=== PATIENT | male | born 1940 | race Caucasian/White ===

== ENCOUNTER 2019-09-13 10:58 | Emergency (ER) | payer MEDICARE, BC ==
[2019-09-13] MEDS ORDERED: Sodium Chloride 0.9% 500 ML IV ONE (11:11)
--- NOTE | 2019-09-13 11:17 | EDM.PDOC ---
ED HPI GENERAL MEDICAL PROBLEM - General Chief Complaint: Gastrointestinal Problem Stated Complaint: Diarrhea Time Seen by Provider: 09/13/19 11:05 Source of Information: Reports: Patient, Family History Limitations: Reports: No Limitations - History of Present Illness INITIAL COMMENTS - FREE TEXT/NARRATIVE: Per the patient and the states he has been having ongoing bouts of diarrhea 3-4 a day that are watery and brown over the last 3 weeks or so. He has been seen by his primary care provider and has been worked up with lab work x-rays all have been negative. He has been taking chemotherapy medication for prostate cancer for the last 2 years 4 pills a day. He has not had any prior issues with this he actually stopped taking them a week ago but it is not change the diarrhea. He denies any sick contacts or change of diet. Last night at approximately 2 AM while getting out of bed to go to the bathroom he got lightheaded and felt like he passed out in the way his 's arms that lasted just a few seconds she was able to get him set down and he was fine after that. He denies any other complaints at this time states he drinks maybe 4 to 5 glasses of fluid/water/Gatorade a day and has been eating okay but not a lot. They have not taken anything for the diarrhea. Duration: Week(s): Quality: Reports: Other (There is no pain whatsoever) Associated Symptoms: Reports: No Other Symptoms - Related Data Allergies Allergy/AdvReac Type Severity Reaction Status Date / Time lisinopril Allergy Cough Verified 09/13/19 11:52 Home Meds: Home Meds Albuterol [Proventil HFA] 2 puff INH Q4H PRN 09/13/19 [History] Amoxicillin 2,000 mg PO ASDIRECTED 09/13/19 [History] Calcium Carbonate/Vitamin D3 [Calcium 600 + Vit D Tablet] 1 tab PO DAILY [History] Denosumab [Xgeva] 120 mg SUBCUT Q28D 09/13/19 [History] Donepezil HCl [Aricept] 10 mg PO BEDTIME 09/13/19 [History] Enzalutamide [Xtandi] 160 mg PO DAILY 09/13/19 [History] Finasteride 5 mg PO DAILY 09/13/19 [History] Fluticasone Propionate [Flonase] 1 spray NASBOTH DAILY 09/13/19 [History] Fluticasone/Vilanterol [Breo Ellipta 100-25 MCG Inhalation Kit] 1 puff PO DAILY 09/13/19 [History] Ipratropium [place] 2 sprays NASBOTH TID 09/13/19 [History] Leuprolide [Lupron Depot] 30 mg IM Q120D 09/13/19 [History] Lisinopril [Zestril] 2.5 mg PO DAILY 09/13/19 [History] Memantine HCl 10 mg PO BID 09/13/19 [History] Metoprolol Succinate [Toprol Xl] 50 mg PO DAILY 09/13/19 [History] Multivit-Min/FA/Lycopen/Lutein [Centrum Silver Tablet] 1 tab PO DAILY 09/13/19 [ History] [place]-3/DHA/Epa/Fish Oil [[place]-3 Fish Oil 1,200 MG Sfgl] 1,200 mg PO DAILY [History] Sertraline [Zoloft] 50 mg PO DAILY 09/13/19 [History] Tamsulosin HCl [Flomax] 0.8 mg PO DAILY 09/13/19 [History] Warfarin [Coumadin] 5 mg PO DAILY 09/13/19 [History] atorvaSTATin [Lipitor] 10 mg PO BEDTIME 09/13/19 [History] ED ROS GENERAL - Review of Systems Review Of Systems: See Below Constitutional: Reports: Decreased Appetite. Denies: Fever, Chills, Malaise, Weakness, Fatigue, Night Sweats, Diaphoresis, Weight Loss, Weight Gain HEENT: Reports: No Symptoms Respiratory: Denies: Shortness of Breath, Pleuritic Chest Pain, Cough, Sputum, Hemoptysis Cardiovascular: Reports: Lightheadedness, Other (Possible near syncopal episode last night). Denies: Chest Pain, Blood Pressure Problem, Claudication, Dyspnea on Exertion, Edema, Orthopnea, Palpitations, Syncope Endocrine: Reports: No Symptoms. Denies: Fatigue, High Glucose, Low Glucose GI/Abdominal: Reports: Diarrhea, Decreased Appetite. Denies: Abdominal Pain, Anorexia, Black Stool, Bloody Stool, Constipation, Difficulty Swallowing, Distension, Flatus, Hematemesis, Hematochezia, Melena, Mucous in Stool, Nausea, Stool Incontinence, Vomiting : Reports: No Symptoms Musculoskeletal: Reports: No Symptoms Skin: Reports: No Symptoms Neurological: Reports: No Symptoms Psychiatric: Reports: No Symptoms Hematologic/Lymphatic: Reports: No Symptoms Immunologic: Reports: No Symptoms ED EXAM, GENERAL - Physical Exam Exam: See Below Exam Limited By: No Limitations General Appearance: Alert, WD/WN, No Apparent Distress Eye Exam: Bilateral Eye: EOMI, PERRL Ears: Normal External Exam Nose: Normal Inspection, Normal Mucosa, No Blood Throat/Mouth: Normal Inspection, Normal Lips, Normal Teeth, Normal Gums, Normal Oropharynx, Normal Voice, No Airway Compromise, Other (Patient has moist mucous membranes) Head: Atraumatic, Normocephalic Neck: Normal Inspection, Supple, Non-Tender, Full Range of Motion Respiratory/Chest: No Respiratory Distress, Lungs Clear, Normal Breath Sounds, No Accessory Muscle Use, Chest Non-Tender. No: Decreased Breath Sounds Cardiovascular: Normal Peripheral Pulses, Regular Rate, Rhythm, No Edema, No Gallop, No JVD, No Murmur GI/Abdominal: Soft, Non-Tender, No Organomegaly, No Distention, No Abnormal Bruit, Other (Patient has diffuse increased bowel sounds no tenderness to palpation abdomen is soft negative HSM). No: Normal Bowel Sounds Back Exam: Normal Inspection, Full Range of Motion Extremities: Normal Inspection, Normal Range of Motion, Non-Tender, No Pedal Edema, Normal Capillary Refill Neurological: Alert, Oriented, CN II-XII Intact, Normal Cognition, Normal Gait, Normal Reflexes, No Motor/Sensory Deficits Psychiatric: Normal Affect, Normal Mood Skin Exam: Warm, Dry, Intact, Normal Color, No Rash Lymphatic: No Adenopathy Course - Vital Signs Text/Narrative:: We will check CBC BMP IV fluids 500 mL bolus although the patient does not appear dehydrated he has good skin turgor and moist mucous membranes heart rate is normal I will also touch base with his primary care provider CBC BMP EKG all within normal limits Notes were reviewed from [facility] on 04 September where he had a CT which is really no acute findings he had some diverticulosis reviewed lab work negative C. difficile electrolytes were normal spoke with PCP DR Christiansen he is okay with diagnosis and treatment and discharge and patient told him to follow-up in clinic in the next 2 to 3 days he will call him and some Cholestyramine at his local pharmacy and have them start yet as directed. Patient and are instructed to return to the emergency room if anything changes or gets worse Last Recorded V/S: Last Vital Signs Temp 36.6 C 09/13/19 11:00 Pulse 67 09/13/19 11:00 Resp 16 09/13/19 11:00 BP 151/52 H 09/13/19 11:00 Pulse Ox 100 09/13/19 11:00 - Orders/Labs/Meds Labs: Laboratory Tests 09/13/19 09/13/19 Range/Units 11:23 11:23 WBC 5.5 (4.0-10.0) x10^3/uL RBC 3.77 L (4.5-6.0) x10^6/uL Hgb 12.4 L (14.0-18.0) g/dL Hct 35.9 L (40.0-52.0) % MCV 95.2 H (78.0-93.0) fL MCH 32.9 H (26.0-32.0) pg MCHC 34.5 (32.0-36.0) g/dL RDW Coeff of [place] 12.9 (10.0-15.0) % Plt Count 114 L (130-400) x10^3/uL Add Manual Diff Yes Neutrophils % (Manual) 69 (50-80) % Band Neutrophils % 6 (0-6) % Lymphocytes % (Manual) 24 L (25-50) % Monocytes % (Manual) 1 L (2-11) % Platelet Estimate Decreased L Anisocytosis 1+ slight H Ovalocytes 1+ slight H Sodium 139 (136-145) mmol/L Potassium 3.5 (3.5-5.1) mmol/L Chloride 102 (98-107) mmol/L Carbon Dioxide 25 (21-32) mmol/L Anion Gap 15.5 (10-20) mmol/L BUN 17 (7-18) mg/dL Creatinine 1.0 (0.70-1.30) mg/dL Est Cr Clr Drug Dosing TNP Estimated GFR (MDRD) > 60 Glucose 106 (74-106) mg/dL Calcium 8.0 L (8.5-10.1) mg/dL Meds: Medications Discontinued Medications Generic Name Dose Route Start Last Admin Trade Name Freq PRN Reason Stop Dose Admin Sodium Chloride 1,000 mls @ 999 mls/hr 09/13/19 11:33 09/13/19 11:30 Normal Saline IV 09/13/19 12:33 999 mls/hr ONETIME ONE Administration Departure - Departure Time of Disposition: 13:05 Disposition: Home, Self-Care 01 Condition: Good Clinical Impression: Diarrhea - Discharge Information *PRESCRIPTION DRUG MONITORING PROGRAM REVIEWED*: No *COPY OF PRESCRIPTION DRUG MONITORING REPORT IN PATIENT RODGER: No Forms: ED Department Discharge Sepsis Event Note - Focused Exam Vital Signs: Vital Signs Temp Pulse Resp BP Pulse Ox 09/13/19 11:00 36.6 C 67 16 151/52 H 100 Date Exam was Performed: 09/13/19 Time Exam was Performed: 13:09 - Problem List & Annotations (1) Diarrhea SNOMED Code(s): 35657813 Code(s): R19.7 - DIARRHEA, UNSPECIFIED Status: Acute Current Visit: Yes
[2019-09-13] MEDS: Sodium Chloride 0.9% 1,000 ML IV ONE (11:30)
[2019-09-13 11:53] LABS: CHLORIDE,CL 102 mmol/L (98-107); SODIUM,NA 139 mmol/L (136-145)
[2019-09-13 11:54] LABS: ANION GAP 15.5 mmol/L (10-20)
[2019-09-13 12:14] VITALS: BP 151/52; PULSE 67
[2019-09-13] MEDS ORDERED: Sodium Chloride 0.9% 10 ML Syringe FLUSH PRN (14:07)
== END 2019-09-13 13:25 | disposition home or self-care (01) ==
LOC: VM.ED 10:58
DX: R19.7 Diarrhea, unspecified (principal); Z88.8 Allergy status to other drugs, medicaments and biological substances
CPT/HCPCS: 80048; 85025; 93005; 96360; 96361; 99283; 99284; J7030

== ENCOUNTER 2019-09-27 22:25 | Inpatient (IN) | payer MEDICARE, BC ==
[2019-09-27] MEDS ORDERED: Sodium Chloride 0.9% 10 ML Syringe FLUSH PRN (22:37)
[2019-09-27] MEDS ORDERED: Sodium Chloride 0.9% 1,000 ML IV ONE (22:39)
--- NOTE | 2019-09-27 23:14 | EDM.PDOC ---
ED HPI GENERAL MEDICAL PROBLEM - General Stated Complaint: SYNCOPE Time Seen by Provider: 09/27/19 22:25 Source of Information: Reports: Patient, EMS, Family History Limitations: Reports: No Limitations, Altered Mental Status - History of Present Illness INITIAL COMMENTS - FREE TEXT/NARRATIVE: Pt. presents to ER via EMS. Pt. states that the patient had a episode of decreased LOC/near syncope this evening. Pt. states that he was standing during the episode initially. She states that he was able to hold himself upright with her assistance. She states that his head lightly struck the mirror above the vanity. She states that she was able to get him to the toilet and then called 911. She states that the patient had Mohs surgery today at [facility] for basal cell carcinoma to the nose and L side of face. This was an outpatient laser procedure. She states that he seemed to tolerate this well and was discharged home today. Pt. has been experiencing quite severe diarrhea for several months. He has had some rectal bleeding as well, thought to be secondary to anal fissure vs. diverticulosis. He has had an abdominal CT, stool cultures, stool panel for common pathogens including c-diff, all of which have been normal. He has not had a colonoscopy at this point. His CRP has been normal but sed rate has been elevated. Denies any fever or chills. Pt. is currently being treated for prostate CA with oral medication (anti- androgen Xtandi daily) as well as Xgeva and lupron depot. He was recently seen in our ER with acute on chronic diarrhea and dehydration. He was started on Questran. states that since starting this, the diarrhea is less but still frequent. EMS relates that the patient had a blood pressure of 111 systolic in the field, but nursing reports a BP in the 70 range on arrival to ER. He denies any chest pain, shortness of breath, lightheadedness, headache, abdominal pain, cough, or other complaints. To note, patient has a history of dementia and is currently on Aricept and Nemenda. He does not recall the events of the night or his medical procedures today. states that is mentation at this time is normal. Onset: Today Onset Date: 09/27/19 Location: Reports: Abdomen, Generalized Associated Symptoms: Reports: Malaise, Syncope (near syncope), Weakness. Denies : Confusion (chronic memory loss due to dementia), Chest Pain, Cough, Diaphoresis, Fever/Chills, Nausea/Vomiting, Rash, Seizure neck Pain Score (Numeric/FACES): 4 - Related Data Allergies Allergy/AdvReac Type Severity Reaction Status Date / Time lisinopril Allergy Cough Verified 09/27/19 23:39 Home Meds: Home Meds Albuterol [Proventil HFA] 2 puff INH Q4H PRN 09/13/19 [History] Amoxicillin 2,000 mg PO ASDIRECTED 09/13/19 [History] Calcium Carbonate/Vitamin D3 [Calcium 600 + Vit D Tablet] 1 tab PO DAILY [History] Denosumab [Xgeva] 120 mg SUBCUT Q28D 09/13/19 [History] Donepezil HCl [Aricept] 10 mg PO BEDTIME 09/13/19 [History] Enzalutamide [Xtandi] 160 mg PO DAILY 09/13/19 [History] Finasteride 5 mg PO DAILY 09/13/19 [History] Fluticasone Propionate [Flonase] 1 spray NASBOTH DAILY 09/13/19 [History] Fluticasone/Vilanterol [Breo Ellipta 100-25 MCG Inhalation Kit] 1 puff PO DAILY 09/13/19 [History] Ipratropium [place] 2 sprays NASBOTH TID 09/13/19 [History] Leuprolide [Lupron Depot] 30 mg IM Q120D 09/13/19 [History] Lisinopril [Zestril] 2.5 mg PO DAILY 09/13/19 [History] Memantine HCl 10 mg PO BID 09/13/19 [History] Metoprolol Succinate [Toprol Xl] 50 mg PO DAILY 09/13/19 [History] Multivit-Min/FA/Lycopen/Lutein [Centrum Silver Tablet] 1 tab PO DAILY 09/13/19 [ History] [place]-3/DHA/Epa/Fish Oil [[place]-3 Fish Oil 1,200 MG Sfgl] 1,200 mg PO DAILY [History] Sertraline [Zoloft] 50 mg PO DAILY 09/13/19 [History] Tamsulosin HCl [Flomax] 0.8 mg PO DAILY 09/13/19 [History] Warfarin [Coumadin] 5 mg PO DAILY 09/13/19 [History] atorvaSTATin [Lipitor] 10 mg PO BEDTIME 09/13/19 [History] Past Medical History Cardiovascular History: Reports: Afib, High Cholesterol, Hypertension, Other ( See Below) 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 Denies: Fever, Chills, Weakness, Night Sweats, Diaphoresis HEENT: Reports: No Symptoms Respiratory: Reports: No Symptoms Cardiovascular: Reports: No Symptoms Endocrine: Reports: No Symptoms GI/Abdominal: Reports: Diarrhea. Denies: Abdominal Pain, Black Stool, Bloody Stool, Distension, Hematemesis, Hematochezia, Melena : Reports: No Symptoms Musculoskeletal: Reports: No Symptoms Skin: Reports: No Symptoms Neurological: Reports: No Symptoms Psychiatric: Reports: No Symptoms Hematologic/Lymphatic: Reports: No Symptoms Immunologic: Reports: No Symptoms ED EXAM, GENERAL - Physical Exam Exam: See Below Exam Limited By: No Limitations General Appearance: Alert, WD/WN, No Apparent Distress Eye Exam: Bilateral Eye: EOMI, Normal Fundi, Normal Inspection, PERRL Nose: Normal Inspection, Normal Mucosa, No Blood Throat/Mouth: Normal Inspection, Normal Lips, Normal Teeth, Normal Oropharynx, Normal Voice, No Airway Compromise, Other (oral mucosa is dry) Head: Atraumatic, Normocephalic Neck: Normal Inspection, Supple, Non-Tender Respiratory/Chest: No Respiratory Distress, Lungs Clear, Normal Breath Sounds, No Accessory Muscle Use, Chest Non-Tender Cardiovascular: Normal Peripheral Pulses, Regular Rate, Rhythm, No Edema, No Gallop, No JVD, No Murmur, No Rub Peripheral Pulses: 4+: Radial (L) GI/Abdominal: Normal Bowel Sounds, Soft, Non-Tender, No Organomegaly, No Distention, No Mass (Male) Exam: Deferred Rectal (Males) Exam: Deferred Back Exam: Normal Inspection, Full Range of Motion Extremities: Normal Inspection, Normal Range of Motion, Non-Tender, No Pedal Edema, Normal Capillary Refill Neurological: Alert, Oriented, CN II-XII Intact, Normal Reflexes, No Motor/ Sensory Deficits, Disoriented (confused of events of day, normal according to .) Psychiatric: Normal Affect, Normal Mood Skin Exam: Warm, Dry, Intact, No Rash, Pallor EKG INTERPRETATION Rhythm: NSR [place]: Normal P-Wave: Present QRS: Normal ST-T: Normal QT: Normal Course - Vital Signs Last Recorded V/S: Last Vital Signs Temp 35.7 C 09/27/19 22:25 Pulse 64 09/27/19 23:42 Resp 16 09/27/19 23:42 BP 98/74 09/27/19 23:42 Pulse Ox 98 09/27/19 23:42 - Orders/Labs/Meds Orders: Active Orders 24 hr Category Date Time Status Patient Status [ADT] Routine ADT 09/28/19 02:23 Ordered EKG Documentation Completion [RC] STAT Care 09/27/19 22:37 Active Chest 1V Frontal [CR] Stat Exams 09/27/19 22:37 Taken Chest Abdomen Pelvis w Cont [CT] Stat Exams 09/27/19 23:58 Taken Head wo Cont [CT] Stat Exams 09/27/19 22:37 Taken CULTURE BLOOD [BC] Stat Lab 09/27/19 23:00 Received CULTURE BLOOD [BC] Stat Lab 09/27/19 23:09 Results Sodium Chloride 0.9% [Saline Flush] Med 09/27/19 22:37 Active 10 ml FLUSH ASDIRECTED PRN Blood Culture x2 Reflex Set [OM.PC] Stat Oth 09/27/19 22:38 Ordered Peripheral IV Insertion Adult [OM.PC] Routine Oth 09/27/19 22:38 Ordered Medication Orders Sodium Chloride (Saline Flush) 10 ml FLUSH ASDIRECTED PRN PRN Reason: Keep Vein Open Labs: Laboratory Tests 09/27/19 09/27/19 09/27/19 Range/Units 23:09 23:09 23:09 WBC 14.3 H (4.0-10.0) x10^3/uL RBC 4.57 (4.5-6.0) x10^6/uL Hgb 15.2 D (14.0-18.0) g/dL Hct 44.0 (40.0-52.0) % MCV 96.3 H (78.0-93.0) fL MCH 33.3 H (26.0-32.0) pg MCHC 34.5 (32.0-36.0) g/dL RDW Coeff of [place] 13.6 (10.0-15.0) % Plt Count 139 (130-400) x10^3/uL Add Manual Diff Yes Neutrophils % (Manual) 47 L (50-80) % Band Neutrophils % 17 H (0-6) % Lymphocytes % (Manual) 5 L (25-50) % Monocytes % (Manual) 15 H (2-11) % Eosinophils % (Manual) 1 (0-4) % Metamyelocytes % 10 H (0) % Myelocytes % 5 H (0) % Platelet Estimate Decreased L Anisocytosis 1+ slight H Ovalocytes 1+ slight H PT > 133.0 H (10.0-12.8) SEC INR > 13.0 H* (2.0-3.5) Sodium 141 (136-145) mmol/L Potassium 3.7 (3.5-5.1) mmol/L Chloride 104 (98-107) mmol/L Carbon Dioxide 20 L (21-32) mmol/L Anion Gap 20.7 H (10-20) mmol/L BUN 15 (7-18) mg/dL Creatinine 1.4 H (0.70-1.30) mg/dL Est Cr Clr Drug Dosing 38.69 mL/min Estimated GFR (MDRD) 49 Glucose 181 H (74-106) mg/dL Lactic Acid (0.4-2.0) mmol/L Calcium 8.9 (8.5-10.1) mg/dL Corrected Calcium 8.98 (8.5-10.1) mg/dL Magnesium 2.3 (1.8-2.4) mg/dL Total Bilirubin 0.8 (0.2-1.0) mg/dL AST 35 (15-37) U/L ALT 32 (16-63) U/L Alkaline Phosphatase 109 (46-116) U/L Troponin I < 0.017 (<=0.056) ng/mL C-Reactive Protein < 0.2 (<=0.9) mg/dL Total Protein 7.9 (6.4-8.2) g/dL Albumin 3.9 (3.4-5.0) g/dL Globulin 4.0 Albumin/Globulin Ratio 0.98 TSH, Ultra Sensitive 11.495 H (0.358-3.74) uIU/mL Urine Color (YELLOW) Urine Appearance (CLEAR) Urine pH (5.0-8.0) Ur Specific [place] Urine Protein (NEGATIVE) mg/dL Urine Glucose (UA) (NEGATIVE) mg/dL Urine Ketones (NEGATIVE) mg/dL Urine Occult Blood (NEGATIVE) Urine Nitrite (NEGATIVE) Urine Bilirubin (NEGATIVE) Urine Urobilinogen (0.2) EU/dL Ur Leukocyte Esterase (NEGATIVE) Urine RBC (NOT SEEN) /HPF Urine WBC (NOT SEEN) /HPF Ur Squamous Epith Cells (NEGATIVE) /HPF Amorphous Sediment Urine Bacteria (NEGATIVE) /HPF Urine Mucus (NEGATIVE) /LPF 09/27/19 09/28/19 Range/Units 23:09 00:21 WBC (4.0-10.0) x10^3/uL RBC (4.5-6.0) x10^6/uL Hgb (14.0-18.0) g/dL Hct (40.0-52.0) % MCV (78.0-93.0) fL MCH (26.0-32.0) pg MCHC (32.0-36.0) g/dL RDW Coeff of [place] (10.0-15.0) % Plt Count (130-400) x10^3/uL Add Manual Diff Neutrophils % (Manual) (50-80) % Band Neutrophils % (0-6) % Lymphocytes % (Manual) (25-50) % Monocytes % (Manual) (2-11) % Eosinophils % (Manual) (0-4) % Metamyelocytes % (0) % Myelocytes % (0) % Platelet Estimate Anisocytosis Ovalocytes PT (10.0-12.8) SEC INR (2.0-3.5) Sodium (136-145) mmol/L Potassium (3.5-5.1) mmol/L Chloride (98-107) mmol/L Carbon Dioxide (21-32) mmol/L Anion Gap (10-20) mmol/L BUN (7-18) mg/dL Creatinine (0.70-1.30) mg/dL Est Cr Clr Drug Dosing mL/min Estimated GFR (MDRD) Glucose (74-106) mg/dL Lactic Acid 5.3 H* (0.4-2.0) mmol/L Calcium (8.5-10.1) mg/dL Corrected Calcium (8.5-10.1) mg/dL Magnesium (1.8-2.4) mg/dL Total Bilirubin (0.2-1.0) mg/dL AST (15-37) U/L ALT (16-63) U/L Alkaline Phosphatase (46-116) U/L Troponin I (<=0.056) ng/mL C-Reactive Protein (<=0.9) mg/dL Total Protein (6.4-8.2) g/dL Albumin (3.4-5.0) g/dL Globulin Albumin/Globulin Ratio TSH, Ultra Sensitive (0.358-3.74) uIU/mL Urine Color Yellow (YELLOW) Urine Appearance Cloudy H (CLEAR) Urine pH 5.5 (5.0-8.0) Ur Specific [place] >=1.030 Urine Protein 100 H (NEGATIVE) mg/dL Urine Glucose (UA) Negative (NEGATIVE) mg/dL Urine Ketones Negative (NEGATIVE) mg/dL Urine Occult Blood Moderate H (NEGATIVE) Urine Nitrite Negative (NEGATIVE) Urine Bilirubin Small H (NEGATIVE) Urine Urobilinogen 0.2 (0.2) EU/dL Ur Leukocyte Esterase Negative (NEGATIVE) Urine RBC 20-30 H (NOT SEEN) /HPF Urine WBC 0-5 (NOT SEEN) /HPF Ur Squamous Epith Cells Moderate H (NEGATIVE) /HPF Amorphous Sediment Few Urine Bacteria Few H (NEGATIVE) /HPF Urine Mucus Few H (NEGATIVE) /LPF Meds: Medications Generic Name Dose Route Start Last Admin Trade Name Freq PRN Reason Stop Dose Admin Sodium Chloride 10 ml 09/27/19 22:37 Saline Flush FLUSH ASDIRECTED PRN Keep Vein Open Discontinued Medications Generic Name Dose Route Start Last Admin Trade Name Freq PRN Reason Stop Dose Admin Sodium Chloride 1,000 mls @ 1,000 mls/hr 09/27/19 22:39 09/27/19 22:45 Normal Saline IV 09/27/19 23:38 1,000 mls/hr .BOLUS ONE Administration Piperacillin Sod/Tazobactam 100 mls @ 200 mls/hr 09/27/19 23:50 09/28/19 00: 35 Sod 3.375 gm/ Sodium Chloride IV 09/28/19 00:19 200 mls/hr STAT ONE Administration Sodium Chloride 500 mls @ 500 mls/hr 09/28/19 00:33 09/28/19 01:20 Normal Saline IV 09/28/19 01:32 500 mls/hr ONETIME ONE Administration Iopamidol 100 ml 09/28/19 00:55 09/28/19 01:23 Isovue-300 (61%) IVPUSH 09/28/19 00:56 100 ml ONETIME ONE Administration - Radiology Interpretation Free Text/Narrative:: chest x-ray is negative CT brain negative CT chest, abd. pelvis were obtained. Dilated pulmonary arteries consistent with pulmonary HTN, no failure pattern. No infiltrate. 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 CT abd. showed 3 cm AAA, no free fluid or free air. Probable partial SBO. Fluid attenuation throughout colon consistent with diarrheal stool. Cholelithiasis without cholecystitis. No abscess, mass or other infectious process noted. Departure - Departure Time of Disposition: 02:31 Disposition: Home, Self-Care 01 Clinical Impression: Small bowel obstruction, ALEAH (acute kidney injury), Dehydration, Elevated INR - Discharge Information Referrals: Vito Christiansen MD [Primary Care Provider] - Sepsis Event Note - Focused Exam Vital Signs: Vital Signs Temp Pulse Resp BP Pulse Ox 09/27/19 23:42 64 16 98/74 98 09/27/19 23:12 61 16 103/30 L 99 09/27/19 22:25 35.7 C 74 16 77/32 L 95 Date Exam was Performed: 09/28/19 Time Exam was Performed: 02:25 - My Orders Last 24 Hours: My Active Orders 09/27/19 22:37 EKG Documentation Completion [RC] STAT Chest 1V Frontal [CR] Stat Head wo Cont [CT] Stat Sodium Chloride 0.9% [Saline Flush] 10 ml FLUSH ASDIRECTED PRN 09/27/19 22:38 Blood Culture x2 Reflex Set [OM.PC] Stat Peripheral IV Insertion Adult [OM.PC] Routine 09/27/19 23:00 CULTURE BLOOD [BC] Stat 09/27/19 23:09 CULTURE BLOOD [BC] Stat 09/27/19 23:58 Chest Abdomen Pelvis w Cont [CT] Stat 09/28/19 02:23 Patient Status [ADT] Routine - Assessment/Plan Admission H&P: Please use this note as an admission H&P Last 24 Hours: My Active Orders 09/27/19 22:37 EKG Documentation Completion [RC] STAT Chest 1V Frontal [CR] Stat Head wo Cont [CT] Stat Sodium Chloride 0.9% [Saline Flush] 10 ml FLUSH ASDIRECTED PRN 09/27/19 22:38 Blood Culture x2 Reflex Set [OM.PC] Stat Peripheral IV Insertion Adult [OM.PC] Routine 09/27/19 23:00 CULTURE BLOOD [BC] Stat 09/27/19 23:09 CULTURE BLOOD [BC] Stat 09/27/19 23:58 Chest Abdomen Pelvis w Cont [CT] Stat 09/28/19 02:23 Patient Status [ADT] Routine Plan: Pt. will be admitted acutely. I spoke with Dr. Perales regarding this patient. He was given an initial dose of zosyn IV as he met sepsis criteria. There is no obvious source of infection at this time, so will hold further antibiotics at this time. Recheck lactic acid, CMP, CBC in AM. Pt. will be started on NS at 200 /hour after second liter of NS. Hold warfarin. He is not actively bleeding, so will hold vitamin K. Pt. last supratheraputic INR resolved when the coumadin was held. Discussed findings with patient and . She states that she is in the process of doing a living will, but states that the patient does not want any resuscitation.
[2019-09-27 23:47] LABS: ANION GAP 20.7 mmol/L (10-20); CHLORIDE,CL 104 mmol/L (98-107); SODIUM,NA 141 mmol/L (136-145)
[2019-09-27] MEDS ORDERED: Piperacillin/Tazobactam 3.375 GM in Sodium Chloride 0.9% 100 ML IV ONE (23:50)
[2019-09-28] MEDS ORDERED: Sodium Chloride 0.9% 500 ML IV ONE (00:33)
[2019-09-28] MEDS ORDERED: Iopamidol 612 MG/ML 100 ML Bottle IVPUSH ONE (00:55)
[2019-09-28] MEDS ORDERED: Sodium Chloride 0.9% 1,000 ML IV ONE (02:50)
[2019-09-28] MEDS ORDERED: Ondansetron 4 MG/2 ML SDV IVPUSH PRN (02:52)
--- NOTE | 2019-09-28 08:06 | CT ---
[id number] CT/CT Chest Abdomen Pelvis W IV Exam: CT Chest Abdomen Pelvis W IV Clinical Data: SEPSIS SYNCOPE COMPARISON: NO PREVIOUS SIMILAR EXAM IS AVAILABLE FINDINGS: There is no pulmonary parenchymal infiltrate or lung mass. The great vessels are intact The pulmonary arteries are prominent. 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
--- NOTE | 2019-09-28 08:08 | CT ---
[id number] CT/CT Head WO IV EXAM: CT Head WO IV CLINICAL DATA: CHANGE IN MENTAL STATUS COMPARISON: NO PREVIOUS SIMILAR EXAM IS AVAILABLE FOR COMPARISON. FINDINGS: There is no mass or mass effect. There is no hemorrhage or hydrocephalus. There are no extra-axial fluid collections. There are no sites of abnormal attenuation. IMPRESSION: NO PLAIN CT EVIDENCE OF ACUTE INTRACRANIAL PROCESS. Zack Hamilton MD 09/28/19 0807 Thank you for allowing us to participate in the care of your patient.
--- NOTE | 2019-09-28 08:09 | CR ---
[id number] RAD/RAD Chest PA or AP 1V EXAM: SINGLE VIEW CHEST. INDICATION: CHANGE IN MENTAL STATUS COMPARISON: NO PREVIOUS SIMILAR EXAM IS AVAILABLE FINDINGS: The lungs are clear The cardiomediastinal contour is slightly prominent A pacemaker is seen IMPRESSION: NO PNEUMONIA OR EDEMA Zack Hamilton MD 09/28/19 [id number] Thank you for allowing us to participate in the care of your patient.
[2019-09-28] MEDS ORDERED: Phytonadione ORAL 2.5mg/2.5ml Soln Simple Syrup U/D PO ONE (08:35)
[2019-09-28] MEDS ORDERED: Albuterol HFA 18 Gm Inhaler INH PRN (08:36)
[2019-09-28 09:07] LABS: ANION GAP 17.1 mmol/L (10-20)
[2019-09-28] MEDS: Tamsulosin 0.4 MG Cap.ER PO SCH (09:42)
[2019-09-28] MEDS: Metoprolol Tartrate 50 MG Tab PO SCH (09:42)
[2019-09-28] MEDS ORDERED: Albuterol 0.083% 2.5 MG/3 ML Neb Soln NEB PRN (10:06)
[2019-09-28] MEDS: Cephalexin 500 MG Cap PO SCH ×3 (13:37→19:32)
[2019-09-28] MEDS: Mupirocin Oint 22 GM Tube TOP SCH ×2 (13:37→19:40)
[2019-09-28] MEDS: IPRATROPIUM BROMIDE NASBOTH SCH ×2 (13:50→19:41)
[2019-09-28] MEDS: Sodium Chloride 0.9% 1,000 ML IV SCH (14:31)
[2019-09-28] MEDS: Fluticasone-Salmeterol 113-14 MCG Powder Inhalant INH SCH ×2 (14:32→19:32)
--- NOTE | 2019-09-28 15:43 | HP ---
CHIEF COMPLAINT: Near-syncope. HISTORY OF PRESENT ILLNESS: This is an 79-year-old male who lives at home with his , who did have an episode of falling and head lightly striking a mirror last night around 10 p.m. told ER that he was able to get himself to the toilet and they called 911. The patient himself does have a history of dementia and is not able to give me a good history this morning. He knows that he lives in [place], but he is not aware that he is in the hospital. He was sort of confused overnight as well, wondering where his was. He did tell me he had Mohs surgery yesterday at [facility] and that is why he has bandaging on his nose. He otherwise has no abdominal pain. Denies any other back pain, cough or fevers, but he has been having some bad diarrhea for several months. About a month ago, he had negative enteric pathogen and C. difficile testing. He had 2 diarrhea type stools overnight. It was not clear to nursing whether there was blood in the stool or it was his urine. He did have blood in his urine, but no evidence of a urine infection. He also had an INR that was greater than 13 despite 3 days ago it being 1.6. He did get a dose of IV Zosyn due to concern for sepsis when he arrived, he is currently on Keflex started yesterday for his dermatologic appointment. Otherwise, he had not been on any antibiotic courses. He does have amoxicillin ordered prior to his dental work. Although he denies any history of heart surgery, he does have chronic atrial fibrillation and that is why he takes Coumadin. He feels like drinking something this morning. ALLERGIES: Lisinopril, cough, and seasonal allergies. MEDICATIONS: His medication list is showin. Keflex 500 4 times a day for 7 days. 2. Bactroban ointment. 3. Questran 4 g one time a day with breakfast. 4. Xtandi 4 capsules 1 time per day, oncology med for prostate cancer. 5. Toprol 50 mg daily. 6. Namenda 10 mg twice daily. 7. Flomax 2 capsules daily. 8. Aricept 10 mg at bedtime. 9. Lipitor 10 mg daily. 10.Proscar 5 mg daily. 11.Zestril 2.5 daily. 12.Breo inhaler daily. 13.Warfarin, dosing per [facility]. 14.Albuterol 2 puffs every 4 to 6 hours as needed for shortness of breath. 15.Flonase nasal spray. 16.Atrovent nasal spray 2 sprays 3 times a day. 17.Amoxicillin prior to dental work. 18.Calcium and vitamin D. 19.Eldorado-3. 20.Multivitamin. 21.His Coumadin dosing I will list here has been 5 mg on Mondays, Wednesdays, and Fridays and 7.5 the rest of the week. States he got 0 mg 4 days prior to the tooth recheck. PAST MEDICAL HISTORY: 1. Prostate cancer with bony metastasis. 2. Chronic atrial fibrillation. 3. Essential hypertension. 4. History of peptic ulcer disease. 5. Impaired fasting glucose, late onset. 6. Alzheimer's without behavioral disturbance. 7. Skin cancer of the face. 8. Unspecified hyperlipidemia. 9. Pulmonary valve disorder. 10.Sinoatrial node dysfunction. 11.Previous pacemaker. 12.Cervical dystonia. He has had previous Botox injections by neuro. PAST SURGICAL HISTORY: The patient has had vasectomy, skin biopsies, hernia repair, and colonoscopy. FAMILY HISTORY: Both parents are . Father had a heart attack. SOCIAL HISTORY: He is . He lives at home with his . He is a retired teacher. He had 2 children. He did not report any alcohol or smoking today but has been a smoker in the past. REVIEW OF SYSTEMS: GENERAL: The patient has had some weight loss of at least 10 pounds over the last month or so. He denied any fever or chills. He denied any sore throat or trouble swallowing. HEENT: Deferred. CARDIAC: He denied any chest pain or palpitations. RESPIRATORY: No cough, no shortness of breath. GI: He denies any abdominal pain currently, but he has had diarrhea. He denies any nausea or vomiting. : He has not noted any blood in his urine. He does have a history of BPH, but denies any difficulty emptying. Otherwise, all systems reviewed and negative unless otherwise stated. PHYSICAL EXAMINATION: Vital Signs: This morning, temperature 97.6, pulse 59, blood pressure 97/34, respiratory rate 18, and O2 of 100 on room air. Weight is 68.039 kg when he came in. Low blood pressure on arrival was 77/32. He received at least 2 L of fluid. General: He is more alert and feeling better this morning. He is in no acute distress. Heart: Regular rate and rhythm. Lungs: Lung sounds are clear to auscultation bilaterally without crackles or wheezes. Abdomen: Slightly distended but positive bowel sounds and nontender. Extremities: Warm and dry. No edema. Mental Status: He is alert. He is orientated to place, [facility], not the hospital. He is able to give me his and his 's name. LABORATORY DATA: White count went from 14.3 to 13.2, hemoglobin 11.7, platelets down to 115. INR greater than 13 last night. Sodium 145, potassium 4.1, chloride 112, bicarb 20, BUN 19, creatinine 1.4, glucose 115. Lactic went down from 5.3 to 2.4. He had a normal magnesium 2.1. Troponin normal x2. UA did show 10 to 20 rbc's this morning. TSH was 11.45, albumin was 3.9. CRP was 0.2. Liver enzymes otherwise were normal. CT of the head was normal. Chest x-ray did not show any pneumonia or edema. CT of the abdomen showed mild ileus, possible gallstones. Pulmonary artery hypertension was reported. No pneumonia or abscess. No appendicitis. Suspected metastatic bone disease was seen. ASSESSMENT AND PLAN: 1. Presyncope related to dehydration. He was hypotensive on arrival. He responded well to IV fluids. He has not had any events on telemetry. We will continue to monitor. We will get him eating and drinking today and continue with another liter of normal saline since his blood pressure is still running low. 2. Supratherapeutic INR. We will repeat the test this morning. If elevated, we are going to give 2.5 of vitamin K, especially because he is having some blood in the urine and possibly the stool. 3. Renal insufficiency. This was likely due to dehydration. Creatinine at baseline is 1, it is 1.4. We will repeat tomorrow. 4. Possible mild ileus. We will repeat chest x-rays if needed. The patient is feeling fine. Abdominal exam looks okay. We will give him a clear liquid diet and see how he does. 5. Recent Mohs surgery. We will get his antibiotics ordered and the ointment for his nose. We will continue with those same cares. 6. Diarrhea. This has been an ongoing problem. We will send another C. diff test, specifically since he is on antibiotics again now for his nose. We have not found any other source of infection to treat. We will also put him on yogurt while he is on antibiotics. 7. Benign prostatic hyperplasia. We will continue his home medications. 8. Atrial fibrillation. We will continue his home medications but holding parameters for the metoprolol due to hypotension. I am going to hold his lisinopril for now due to the renal insufficiency and hypotension. 9. Essential hypertension. We will continue to monitor closely. 10.History of peptic ulcer disease. He did have a slight drop in his hemoglobin. I suspect this is more due to dilution. We will check another hemoglobin this afternoon. 11.Late-onset Alzheimer's. We will continue his home medications. 12.Prostate cancer with bony metastases. We will hold his cancer medication due to acute illness. It should be noted his baseline hemoglobin is around 12.9. PLAN: The patient is going to be admitted for acute cares for IV fluids for resuscitation of hypotension from dehydration. We will monitor him with telemetry. We will repeat lab work in the morning. We will give him some vitamin K oral due to the bleeding in the urine. He is a code level 3. For DVT prophylaxis, he is therapeutic on Coumadin. MKA: 09/28/2019 09:14:48 MODL: 09/28/2019 15:39:45 /[id number] DANTE
[2019-09-28] MEDS: Memantine 10 MG Tab PO SCH (19:32)
[2019-09-28] MEDS ORDERED: Warfarin 2.5 MG Tab PO SCH (20:00)
[2019-09-28] MEDS ORDERED: Donepezil 10 MG Tab PO SCH (20:00)
[2019-09-28] MEDS ORDERED: atorvaSTATin 10 MG Tab PO SCH (20:00)
[2019-09-29] MEDS: Sodium Chloride 0.9% 1,000 ML IV SCH ×2 (00:19→11:45)
[2019-09-29] MEDS: Cephalexin 500 MG Cap PO SCH ×3 (00:19→11:45)
[2019-09-29 07:15] LABS: ANION GAP 15.1 mmol/L (10-20); CHLORIDE,CL 114 mmol/L (98-107); SODIUM,NA 145 mmol/L (136-145)
[2019-09-29] MEDS ORDERED: Fluticasone Propionate Nasal Spray 16 GM Bottle NASBOTH SCH (08:00)
[2019-09-29] MEDS ORDERED: Finasteride 5 MG Tab PO SCH (08:00)
[2019-09-29] MEDS ORDERED: ENZALUTAMIDE 160 MG PO SCH (08:00)
[2019-09-29] MEDS: Tamsulosin 0.4 MG Cap.ER PO SCH (08:07)
[2019-09-29] MEDS: Memantine 10 MG Tab PO SCH (08:07)
[2019-09-29] MEDS: Potassium Chloride 10 MEQ Tab.ER PO SCH ×2 (08:08→17:12)
[2019-09-29] MEDS: Metoprolol Tartrate 50 MG Tab PO SCH (08:08)
[2019-09-29] MEDS: Mupirocin Oint 22 GM Tube TOP SCH (08:09)
[2019-09-29] MEDS: Fluticasone-Salmeterol 113-14 MCG Powder Inhalant INH SCH (08:09)
[2019-09-29] MEDS: IPRATROPIUM BROMIDE NASBOTH SCH ×2 (08:10→11:44)
[2019-09-29] MEDS ORDERED: cefTRIAXone 2 GM Vial IVPUSH SCH ×3 (13:15→14:00)
[2019-09-29] MEDS ORDERED: NS + KCl 20mEq/L 1,000 ML IV SCH (13:30)
--- NOTE | 2019-09-29 14:24 | PN ---
Progress Note for [facility] Date: 09/29/2019 Room #: VM.203 SUBJECTIVE: This is hospital day #2 on an 79-year-old admitted with presyncope due to dehydration due to diarrhea on the medical device of 09/28/2019. The patient continues to have multiple episodes of loose stools, just shoots right out of him. He has been having this for about 2 months. He had negative C. diff here. He had negative C. diff and an enteric pathogen panel in August. He has not had a colonoscopy for about 5 years. He has not noted blood in his stool, but he does feel that there is some in his urine. His INR which was supratherapeutic is back in range at 2.1. He has actually been restarted on his Coumadin 7.5 mg daily. He was alternating with 5 mg at home, but he did get some vitamin K. He has otherwise been maintained on IV fluids. His blood pressure this morning was excellent, but then after his Toprol, it went down to 85/47 this AM. He denies feeling lightheaded or dizzy. He denies any chest pain or coughing. CT of the abdomen had shown concern for small-bowel obstruction or ileus, however, the patient has no abdominal pain or nausea. He had tolerated a clear liquid diet which we advanced to a BRAT diet yesterday. He is tolerating that and his only complaint is that he did not have enough sugar. Otherwise, he does have history of dementia, but he is able to answer all questions appropriately. He has had no fevers. OBJECTIVE: Vital Signs: Temperature 98.2, pulse 60, blood pressure 85/47, respiratory rate 18, and O2 of 99% on room air. General: He is in no acute distress. Heart: Regular rate and rhythm. S1, S2 without murmur. Lungs: Lung sounds are clear to auscultation bilaterally without crackles or wheezes. Abdomen: Mild distention, but positive bowel sounds. Soft, nontender. Extremities: Warm and dry. No edema. Mental Status: He is alert and orientated x3. Telemetry was reviewed. He did have 1 episode of atrial fibrillation with RVR. It was quite brief into the 130s. Otherwise, he has had no further events. LABORATORY DATA: Lab work does show his white count normalized to 6.2, hemoglobin at 10.7. Platelets are down to 98, his starting was 139. INR today is 2.1. Sodium 145, potassium 3.1, chloride 114, bicarb 19, BUN 11, creatinine 0.9. Lactic 2.6 up from 2.4 yesterday. Calcium 7.1, magnesium 2.1. Free T3 was 3.24. ASSESSMENT: 1. Gram-positive bacteremia, 1 of 3. It actually came back Streptococcus, so this is not a contaminant. The organism needs to be further worked up. Lab will work on this and may have more information by tomorrow. For now, we will start him on 2 g of IV Rocephin q.12 hours and stop the oral Keflex that he was on for his dermatologic procedure. I will repeat the blood cultures now along with a potassium, CRP, and lactic acid. 2. Presyncope due to dehydration. He is eating and drinking better, but due to lower blood pressures, I will continue him on IV fluids and add some potassium to that due to hypokalemia. 3. Hypokalemia. We will replace IV and orally. This is likely due to his diarrhea. 4. Atrial fibrillation. He is actually in sinus rhythm most of the time. He is therapeutic on warfarin. I am actually going to hold for now in anticipation that he may need a colonoscopy to further evaluate this diarrhea and potentially why he is having this Streptococcus bacteremia. 5. Renal insufficiency. His creatinine is down to 0.9. This has resolved with IV fluids. I will continue holding his HERO inhibitor, particularly due to the fact he is hypotensive. 6. Essential hypertension. He is getting his metoprolol. I am going to decrease it to 25 mg daily. He is also on Flomax for benign prostatic hyperplasia. If his blood pressure gets too low, we will have to hold that as well. He has been voiding okay. 7. Benign prostatic hyperplasia, on home medications. 8. Diarrhea, been going on a couple of months now. He has had negative Clostridium difficile and other workup. I feel he probably just needs a colonoscopy. 9. History of peptic ulcer disease. His hemoglobins have been stable. He has not had any upset stomach. We will continue to monitor. 10.Mild ileus. Those symptoms have resolved. He is tolerating a diet. 11.Late-onset Alzheimer's. He is on his home medications. 12.Prostate cancer with bony metastasis. He is off his Xtandi due to his acute illness. PLAN: At this point, the patient will be started on IV Rocephin after repeating blood cultures due to Streptococcus species bacteremia, unknown source. He will need further workup for his diarrhea as well. I will discuss with him and his possible transfer to [place] for further cares. He is quite clinically stable right now and we are still working on further identification of organisms, so it is quite probable that we may not be able to arrange for transfer today. I will also try to contact Infectious Disease for further recommendations. MKA: 09/29/2019 13:21:31 MODL: 09/29/2019 14:19:06 /[id number] DANTE
[2019-09-29 14:33] VITALS: BP 91/48; PULSE 63
--- NOTE | 2019-09-29 17:28 | PCM.DCSUM1 ---
Discharge Summary - Hospital Course Free Text/Narrative:: Patient admitted for near syncope due to dehydration due to diarrhea was found to have 1 of 3 blood cultures positive for strep species at 12 hrs. He was afebrile did get a dose of IV zosyn initially and WBC normalized from 14 K to normal today. CRP went up to 1.5 today but his lactic normalized. We did order his oral keflex that was recommended after his derm procedure his had not given him a dose prior to that admission. he continued to have diarrhea here up to 7 stools yesterday. Urine and lungs were negative for infection. Abdominal CT suggested ileus but by the first morning he was drinking and eating a bland diet by evening. Cr up to 1.4 so lisinopril held and also due to hypotension. Cr 0.9 today and he continued to get IV fluids. Potassium was replaced IV and orally. He had one episode of a.fib on tele. He otherwise got Vitamin K 2.5 mg oral due to INR over 13 but then it returned to normal range so he did get the 7.5 mg dose yesterday. He denied any pain, no dental pain he has dementia but was able to answer questions appropriately. See detailed progress note from today also for his physical exam. Discussed condition with the hospitalist Dr. Limon who agreed to accept the patient in Transfer for further evaluation. - Discharge Data Discharge Date: 09/29/19 Discharge Disposition: DC/Tfer to Acute Hospital 02 Condition: Stable - Referral to Home Health Primary Care Physician: Vito Christiansen MD - Discharge Diagnosis/Problem(s) (1) Streptococcal bacteremia SNOMED Code(s): 330820568591 ICD Code: R78.81 - BACTEREMIA; B95.5 - UNSP STREPTOCOCCUS THE CAUSE OF DISEASES [facility] Status: Acute Priority: High Current Visit: Yes (2) Dementia SNOMED Code(s): 19671716 ICD Code: F03.90 - UNSPECIFIED DEMENTIA WITHOUT BEHAVIORAL DISTURBANCE Status: Chronic Priority: Medium Current Visit: Yes Qualifiers: Dementia type: Alzheimer's disease (3) Prostate cancer SNOMED Code(s): 036911010 ICD Code: C61 - MALIGNANT NEOPLASM OF PROSTATE Status: Chronic Priority: Medium Current Visit: Yes (4) Atrial fibrillation SNOMED Code(s): 01214426 ICD Code: I48.91 - UNSPECIFIED ATRIAL FIBRILLATION Status: Chronic Priority: Medium Current Visit: Yes Qualifiers: Atrial fibrillation type: paroxysmal Qualified Code(s): I48.0 - Paroxysmal atrial fibrillation (5) Hypertension SNOMED Code(s): 46559305 ICD Code: I10 - ESSENTIAL (PRIMARY) HYPERTENSION Status: Chronic Current Visit: Yes Qualifiers: Hypertension type: essential hypertension Qualified Code(s): I10 - Essential (primary) hypertension (6) ALEAH (acute kidney injury) SNOMED Code(s): 58993711, 15061887 ICD Code: N17.9 - ACUTE KIDNEY FAILURE, UNSPECIFIED Status: Acute Priority: High Current Visit: Yes (7) Dehydration SNOMED Code(s): 35552215 ICD Code: E86.0 - DEHYDRATION Status: Resolved Priority: High Current Visit: Yes (8) Elevated INR SNOMED Code(s): 496880846 ICD Code: R79.1 - ABNORMAL COAGULATION PROFILE Status: Resolved Priority : High Current Visit: Yes (9) Small bowel obstruction SNOMED Code(s): 844252948 ICD Code: K56.609 - UNSP INTESTNL OBST, UNSP TO PARTIAL VERSUS COMPLETE OBST Status: Resolved Priority: High Current Visit: Yes (10) Diarrhea SNOMED Code(s): 68052016 ICD Code: R19.7 - DIARRHEA, UNSPECIFIED Status: Chronic Priority: High Current Visit: Yes Qualifiers: Diarrhea type: unspecified type Qualified Code(s): R19.7 - Diarrhea, unspecified - Patient Instructions Diet: Usual Diet as Tolerated (BRAT) - Discharge Plan Home Medications: Home Meds Albuterol [Proventil HFA] 2 puff INH Q4H PRN 09/13/19 [History] Amoxicillin 2,000 mg PO ASDIRECTED 09/13/19 [History] Calcium Carbonate/Vitamin D3 [Calcium 600 + Vit D Tablet] 1 tab PO DAILY [History] Denosumab [Xgeva] 120 mg SUBCUT Q28D 09/13/19 [History] Donepezil HCl [Aricept] 10 mg PO BEDTIME 09/13/19 [History] Enzalutamide [Xtandi] 160 mg PO DAILY 09/13/19 [History] Finasteride 5 mg PO DAILY 09/13/19 [History] Fluticasone Propionate [Flonase] 1 spray NASBOTH DAILY 09/13/19 [History] Fluticasone/Vilanterol [Breo Ellipta 100-25 MCG Inhalation Kit] 1 puff PO DAILY 09/13/19 [History] Ipratropium Baylis 2 sprays NASBOTH TID 09/13/19 [History] Leuprolide [Lupron Depot] 30 mg IM Q120D 09/13/19 [History] Lisinopril [Zestril] 2.5 mg PO DAILY 09/13/19 [History] Memantine HCl 10 mg PO BID 09/13/19 [History] Metoprolol Succinate [Toprol Xl] 50 mg PO DAILY 09/13/19 [History] Multivit-Min/FA/Lycopen/Lutein [Centrum Silver Tablet] 1 tab PO DAILY 09/13/19 [ History] Fisher-3/DHA/Epa/Fish Oil [Fisher-3 Fish Oil 1,200 MG Sfgl] 1,200 mg PO DAILY [History] Tamsulosin HCl [Flomax] 0.8 mg PO DAILY 09/13/19 [History] Warfarin [Coumadin] 5 mg PO ASDIRECTED 09/13/19 [History] atorvaSTATin [Lipitor] 10 mg PO BEDTIME 09/13/19 [History] Mupirocin Oint [Bactroban Oint] 1 applic TP BID 09/28/19 [History] Oxygen Therapy Mode: Room Air Forms: ED Department Discharge, Interfacility Transfer EMTALA Referrals: Vito Christiansen MD [Primary Care Provider] - - Discharge Summary/Plan Comment DC Time >30 min.: Yes - General Info Date of Service: 09/29/19 - Patient Data Vitals - Most Recent: Last Vital Signs Temp 97.9 F 09/29/19 14:00 Pulse 63 09/29/19 14:00 Resp 18 09/29/19 14:00 BP 91/48 L 09/29/19 14:00 Pulse Ox 98 09/29/19 14:00 Weight - Most Recent: 68.039 kg I&O - Last 24 hours: Intake & Output 09/29/19 09/29/19 09/29/19 06:59 14:59 22:59 Intake Total 1312 540 Output Total 250 Balance 1312 290 Lab Results - Last 24 hrs: Laboratory Results - last 24 hr 0209/29/19 09/29/19 Range/Units 14:07 06:35 06:35 WBC 6.2 (4.0-10.0) x10^3/uL RBC 3.22 L (4.5-6.0) x10^6/uL Hgb 10.7 L (14.0-18.0) g/dL Hct 31.9 L (40.0-52.0) % MCV 99.1 H (78.0-93.0) fL MCH 33.2 H (26.0-32.0) pg MCHC 33.5 (32.0-36.0) g/dL RDW Coeff of Chivo 14.3 (10.0-15.0) % Plt Count 98 L (130-400) x10^3/uL Add Manual Diff Yes Neutrophils % (Manual) 78 (50-80) % Band Neutrophils % 3 (0-6) % Lymphocytes % (Manual) 16 L (25-50) % Monocytes % (Manual) 3 (2-11) % Platelet Estimate Decreased L Hypochromasia 1+ slight H Anisocytosis 1+ slight H PT (10.0-12.8) SEC INR (2.0-3.5) Sodium 145 (136-145) mmol/L Potassium 3.1 L (3.5-5.1) mmol/L Chloride 114 H (98-107) mmol/L Carbon Dioxide 19 L (21-32) mmol/L Anion Gap 15.1 (10-20) mmol/L BUN 11 (7-18) mg/dL Creatinine 0.9 (0.70-1.30) mg/dL Est Cr Clr Drug Dosing 60.18 mL/min Estimated GFR (MDRD) > 60 Glucose 93 (74-106) mg/dL Lactic Acid (0.4-2.0) mmol/L Calcium 7.1 L (8.5-10.1) mg/dL Magnesium (1.8-2.4) mg/dL C-Reactive Protein (<=0.9) mg/dL Free T3 pg/mL 3.24 (2.50-3.90) pg/mL 09/29/19 09/29/19 09/29/19 Range/Units 06:35 06:35 06:35 WBC (4.0-10.0) x10^3/uL RBC (4.5-6.0) x10^6/uL Hgb (14.0-18.0) g/dL Hct (40.0-52.0) % MCV (78.0-93.0) fL MCH (26.0-32.0) pg MCHC (32.0-36.0) g/dL RDW Coeff of Chivo (10.0-15.0) % Plt Count (130-400) x10^3/uL Add Manual Diff Neutrophils % (Manual) (50-80) % Band Neutrophils % (0-6) % Lymphocytes % (Manual) (25-50) % Monocytes % (Manual) (2-11) % Platelet Estimate Hypochromasia Anisocytosis PT 23.9 H D (10.0-12.8) SEC INR 2.1 (2.0-3.5) Sodium (136-145) mmol/L Potassium (3.5-5.1) mmol/L Chloride (98-107) mmol/L Carbon Dioxide (21-32) mmol/L Anion Gap (10-20) mmol/L BUN (7-18) mg/dL Creatinine (0.70-1.30) mg/dL Est Cr Clr Drug Dosing mL/min Estimated GFR (MDRD) Glucose (74-106) mg/dL Lactic Acid 2.6 H* (0.4-2.0) mmol/L Calcium (8.5-10.1) mg/dL Magnesium 2.1 (1.8-2.4) mg/dL C-Reactive Protein (<=0.9) mg/dL Free T3 pg/mL (2.50-3.90) pg/mL 09/29/19 09/29/19 Range/Units 13:46 13:46 WBC (4.0-10.0) x10^3/uL RBC (4.5-6.0) x10^6/uL Hgb (14.0-18.0) g/dL Hct (40.0-52.0) % MCV (78.0-93.0) fL MCH (26.0-32.0) pg MCHC (32.0-36.0) g/dL RDW Coeff of Chivo (10.0-15.0) % Plt Count (130-400) x10^3/uL Add Manual Diff Neutrophils % (Manual) (50-80) % Band Neutrophils % (0-6) % Lymphocytes % (Manual) (25-50) % Monocytes % (Manual) (2-11) % Platelet Estimate Hypochromasia Anisocytosis PT (10.0-12.8) SEC INR (2.0-3.5) Sodium (136-145) mmol/L Potassium 3.3 L (3.5-5.1) mmol/L Chloride (98-107) mmol/L Carbon Dioxide (21-32) mmol/L Anion Gap (10-20) mmol/L BUN (7-18) mg/dL Creatinine (0.70-1.30) mg/dL Est Cr Clr Drug Dosing mL/min Estimated GFR (MDRD) Glucose (74-106) mg/dL Lactic Acid 2.0 (0.4-2.0) mmol/L Calcium (8.5-10.1) mg/dL Magnesium (1.8-2.4) mg/dL C-Reactive Protein 1.5 H (<=0.9) mg/dL Free T3 pg/mL (2.50-3.90) pg/mL DARINEL Results - Last 24 hrs: Microbiology 09/27/19 23:09 Aerobic Blood Culture - Preliminary Blood - Venous - Lab Draw Streptococcus Species Anaerobic Blood Culture - Final 09/28/19 10:05 Clostridioides difficile (PCR) - Final Stool / Feces 09/27/19 23:00 Aerobic Blood Culture - Preliminary Blood - Venous NO GROWTH AFTER 1 DAY Anaerobic Blood Culture - Preliminary NO GROWTH AFTER 1 DAY Med Orders - Current: Current Medications Albuterol (Proventil Neb Soln) 2.5 mg NEB Q4H PRN PRN Reason: Shortness of Breath Atorvastatin Calcium (Lipitor) 10 mg PO BEDTIME [facility] Last Admin: 09/28/19 19:32 Dose: 10 mg Ceftriaxone Sodium (Rocephin) 2 gm IVPUSH BID@1000,2200 [facility] Last Admin: 09/29/19 13:57 Dose: 2 gm Donepezil HCl (Aricept) 10 mg PO BEDTIME [facility] Last Admin: 09/28/19 19:32 Dose: 10 mg Finasteride (Proscar) 5 mg PO DAILY [facility] Last Admin: 09/29/19 08:07 Dose: 5 mg Fluticasone Propionate (Flonase) 0 gm NASBOTH DAILY [facility] Last Admin: 09/29/19 08:09 Dose: 1 spray Potassium Chloride/Sodium Chloride (Normal Saline With 20 Meq Kcl) 1,000 mls @ 100 mls/hr IV ASDIRECTED [facility] Memantine (Namenda) 10 mg PO BID [facility] Last Admin: 09/29/19 08:07 Dose: 10 mg Metoprolol Succinate (Toprol Xl) 25 mg PO DAILY [facility] Mupirocin (Bactroban Oint) 0 gm TOP BID [facility] Last Admin: 09/29/19 08:09 Dose: 1 applic Enzalutamide [Xtandi ] 160 Mg (Own Supply ) 0 mg PO DAILY [facility] Ipratropium Baylis ((Own Supply)) 2 sprays NASBOTH TID [facility] Last Admin: 09/29/19 11:44 Dose: Not Given Ondansetron HCl (Zofran) 4 mg IVPUSH Q8H PRN PRN Reason: Nausea Potassium Chloride (Klor-Con 10) 40 meq PO BIDMEALS [facility] Last Admin: 09/29/19 17:12 Dose: 40 meq Fluticasone/Salmeterol (Fluticasone-Salmeterol 113-14 Mcg Powder Inh) 1 puff INH BID [facility] Last Admin: 09/29/19 08:09 Dose: 1 puff Sodium Chloride (Saline Flush) 10 ml FLUSH ASDIRECTED PRN PRN Reason: Keep Vein Open Tamsulosin HCl (Flomax) 0.8 mg PO DAILY [facility] Last Admin: 09/29/19 08:07 Dose: 0.8 mg Discontinued Medications Ceftriaxone Sodium (Rocephin) 2 gm IVPUSH DAILY [facility] Last Admin: 09/29/19 13:36 Dose: Not Given Ceftriaxone Sodium (Rocephin) 2 gm IVPUSH Q12H [facility] Last Admin: 09/29/19 14:08 Dose: Not Given Cephalexin (Keflex) 500 mg PO Q6HR [facility] Last Admin: 09/28/19 13:38 Dose: Not Given Cephalexin (Keflex) 500 mg PO Q6HR [facility] Last Admin: 09/29/19 11:45 Dose: 500 mg Sodium Chloride (Normal Saline) 1,000 mls @ 1,000 mls/hr IV .BOLUS ONE Stop: 02/05/20 23:38 Last Admin: 09/27/19 22:45 Dose: 1,000 mls/hr Piperacillin Sod/Tazobactam (Sod 3.375 gm/ Sodium Chloride) 100 mls @ 200 mls/ hr IV STAT ONE Stop: 09/28/19 00:19 Last Admin: 09/28/19 00:35 Dose: 200 mls/hr Sodium Chloride (Normal Saline) 500 mls @ 500 mls/hr IV ONETIME ONE Stop: 09/28/19 01:32 Last Admin: 09/28/19 01:20 Dose: 500 mls/hr Sodium Chloride (Normal Saline) 1,000 mls @ 250 mls/hr IV CONTINUOUS ONE Stop: 09/28/19 06:49 Last Admin: 09/28/19 03:06 Dose: 250 mls/hr Sodium Chloride (Normal Saline) 1,000 mls @ 100 mls/hr IV ASDIRECTED [facility] Last Admin: 09/29/19 11:45 Dose: 100 mls/hr Iopamidol (Isovue-300 (61%)) 100 ml IVPUSH ONETIME ONE Stop: 09/28/19 00:56 Last Admin: 09/28/19 01:23 Dose: 100 ml Metoprolol Tartrate (Lopressor) 50 mg PO DAILY [facility] Last Admin: 09/29/19 08:08 Dose: 50 mg Phytonadione (Aquamephyton) 2.5 mg PO ONETIME ONE Stop: 09/28/19 08:36 Last Admin: 09/28/19 09:42 Dose: 2.5 mg Warfarin Sodium (Coumadin) 7.5 mg PO BEDTIME [facility] Last Admin: 09/28/19 19:31 Dose: 7.5 mg
[2019-09-30] MEDS ORDERED: Metoprolol Succinate 25 MG Tab.ER PO SCH (08:00)
== END 2019-09-29 18:30 | disposition short-term general hospital (02) | DRG 641 ==
LOC: VM.ED 22:25 → UNDOADMIN 09-28 02:27 → VM.MS 09-28 02:27 → UNDODISIN 09-29 18:30
PROVIDERS: ADMIT Internal Medicine; ATTEND Internal Medicine
DX: E86.0 Dehydration (principal); K56.7 Ileus, unspecified; R78.81 Bacteremia; R79.1 Abnormal coagulation profile; N17.9 Acute kidney failure, unspecified; K56.609 Unspecified intestinal obstruction, unspecified as to partial versus complete obstruction; C78.7 Secondary malignant neoplasm of liver and intrahepatic bile duct; E87.6 Hypokalemia; G30.8 Other Alzheimer's disease; I48.91 Unspecified atrial fibrillation; Z85.46 Personal history of malignant neoplasm of prostate; Z85.830 Personal history of malignant neoplasm of bone; Z85.828 Personal history of other malignant neoplasm of skin; Z95.0 Presence of cardiac pacemaker; R19.7 Diarrhea, unspecified; I10 Essential (primary) hypertension; K27.9 Peptic ulcer, site unspecified, unspecified as acute or chronic, without hemorrhage or perforation; C61 Malignant neoplasm of prostate; B95.5 Unspecified streptococcus as the cause of diseases classified elsewhere; G30.1 Alzheimer's disease with late onset; E78.00 Pure hypercholesterolemia, unspecified; F02.80 Dementia in other diseases classified elsewhere, unspecified severity, without behavioral disturbance, psychotic disturbance, mood disturbance, and anxiety; Z88.8 Allergy status to other drugs, medicaments and biological substances; Z79.01 Long term (current) use of anticoagulants; Z79.899 Other long term (current) drug therapy
CPT/HCPCS: 36415; 51798; 70450; 71045; 71260; 74177; 80048; 80053; 81001; 83605; 83735; 84132; 84436; 84443; 84481; 84484; 85014; 85018; 85025; 85610; 86140; 87040; 87077; 87186; 87493; 93005; 93010; 96361; 96365; 99284-GF; 99285-25; A9270-GY; J0696; J2543; J7030; J7040; J7050; Q9967

== ENCOUNTER 2019-10-03 18:42 | Observation (INO) | payer MEDICARE, BC ==
[~2019-10-03 18:42] MED LIST: Sodium Chloride 0.9% 1,000 ML IV ONE
[2019-10-03] MEDS ORDERED: Sodium Chloride 0.9% 10 ML Syringe FLUSH PRN (19:08)
--- NOTE | 2019-10-03 19:30 | EDM.PDOC ---
ED HPI GENERAL MEDICAL PROBLEM - General Stated Complaint: SYCOPE Time Seen by Provider: 10/03/19 18:59 Source of Information: Reports: EMS, Family - History of Present Illness INITIAL COMMENTS - FREE TEXT/NARRATIVE: Don is an 79 y/o male who is brought in to the ER tonight by EMS after he was up to the bathroom and had a near-syncopal episode. His assisted him to the floor. It sounds as if it was more weakness, but did occur when he was having a bowel movement. He was seen here last week for a similar incident, was then admitted and then transferred to [place]. His reports that he was just discharged yesterday AM and since being home has not eaten or drank much. He does still get up to the bathroom frequently for diarrhea stools. - Related Data Allergies Allergy/AdvReac Type Severity Reaction Status Date / Time lisinopril Allergy Cough Verified 09/27/19 23:39 Home Meds: Home Meds Albuterol [Proventil HFA] 2 puff INH Q4H PRN 09/13/19 [History] Amoxicillin 2,000 mg PO ASDIRECTED 09/13/19 [History] Calcium Carbonate/Vitamin D3 [Calcium 600 + Vit D Tablet] 1 tab PO DAILY [History] Denosumab [Xgeva] 120 mg SUBCUT Q28D 09/13/19 [History] Donepezil HCl [Aricept] 10 mg PO BEDTIME 09/13/19 [History] Enzalutamide [Xtandi] 160 mg PO DAILY 09/13/19 [History] Finasteride 5 mg PO DAILY 09/13/19 [History] Fluticasone Propionate [Flonase] 1 spray NASBOTH DAILY 09/13/19 [History] Fluticasone/Vilanterol [Breo Ellipta 100-25 MCG Inhalation Kit] 1 puff PO DAILY 09/13/19 [History] Ipratropium [place] 2 sprays NASBOTH TID 09/13/19 [History] Leuprolide [Lupron Depot] 30 mg IM Q120D 09/13/19 [History] Lisinopril [Zestril] 2.5 mg PO DAILY 09/13/19 [History] Memantine HCl 10 mg PO BID 09/13/19 [History] Metoprolol Succinate [Toprol Xl] 50 mg PO DAILY 09/13/19 [History] Multivit-Min/FA/Lycopen/Lutein [Centrum Silver Tablet] 1 tab PO DAILY 09/13/19 [ History] [place]-3/DHA/Epa/Fish Oil [[place]-3 Fish Oil 1,200 MG Sfgl] 1,200 mg PO DAILY [History] Tamsulosin HCl [Flomax] 0.8 mg PO DAILY 09/13/19 [History] Warfarin [Coumadin] 5 mg PO ASDIRECTED 09/13/19 [History] atorvaSTATin [Lipitor] 10 mg PO BEDTIME 09/13/19 [History] Mupirocin Oint [Bactroban Oint] 1 applic TP BID 09/28/19 [History] Past Medical History Cardiovascular History: Reports: Afib, High Cholesterol, Hypertension, Other ( See Below) 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 - Past Surgical History Cardiovascular Surgical History: Reports: Pacer, Other (See Below) Other Cardiovascular Surgeries/Procedures: dual chamber pacemaker Review of Systems - Review of Systems Review Of Systems: Unable To Obtain Reason Not Obtained: Patient is unable to give ROS due to Dementia Constitutional: Reports: Weakness Eyes: Reports: No Symptoms Ears: Reports: No Symptoms Nose: Reports: No Symptoms Mouth/Throat: Reports: No Symptoms Respiratory: Reports: No Symptoms Cardiovascular: Reports: No Symptoms GI/Abdominal: Reports: Decreased Appetite, Diarrhea Genitourinary: Reports: No Symptoms Musculoskeletal: Reports: No Symptoms Skin: Reports: No Symptoms Neurological: Reports: Confusion, Weakness Psychiatric: Reports: Confusion ED EXAM, GENERAL - Physical Exam Exam: See Below General Appearance: Alert, WD/WN, No Apparent Distress (Elderly male, NAD. He does answer a few questions.) Eye Exam: Bilateral Eye: PERRL Ears: Normal External Exam, Normal Canal, Hearing Grossly Normal, Normal TMs Nose: Normal Mucosa, Other (Dressing intact to nose S/P Mohs Procedure) Throat/Mouth: Normal Teeth, Normal Oropharynx, Normal Voice, Other (Lips slightly dry) Head: Atraumatic, Normocephalic Neck: Normal Inspection, Supple, Non-Tender Respiratory/Chest: No Respiratory Distress, Lungs Clear, Chest Non-Tender Cardiovascular: Regular Rate, Rhythm, No Murmur GI/Abdominal: Normal Bowel Sounds, Soft, Non-Tender (Male) Exam: Deferred Rectal (Males) Exam: Deferred Back Exam: Other (Deferred) Extremities: Normal Inspection, No Pedal Edema, Normal Capillary Refill Neurological: Alert, Confused, Memory Loss Recent Events Psychiatric: Flat Affect Skin Exam: Warm, Dry, Intact, No Rash, Pallor Lymphatic: No Adenopathy EKG INTERPRETATION EKG Date: 10/03/19 Time: 19:10 Rhythm: Other (Atrial Paced) Rate (Beats/Min): 60 [place]: Normal P-Wave: Absent Course - Vital Signs Text/Narrative:: 1899 Patient is seen by the PHARMACY CASHIER. Labs, EKG, CXR ordered. 1944 Reviewed labs, EKG, and CXR. No acute findings noted. Suspect the syncopa episode is related to end stage Alzheimer's. reports to [facility] that she is refusing to take patient home tonight as she is unable to care for him. Patient has appt with his PCP in [place] next Wednesday. is asking if he can be admitted here at [facility]. [address] Zachary Urban. 2099 Reviewed options with family and will admit the patient to Observation and then if he meets no further criteria, he may be charged at a private pay SB rate. is aware. Will admit and have director social welfare see family in the AM. Patient also has frequent diarrhea that has been going on now 1+ months and further tests are being done from [place] [facility]. Patient is up to bathroom frequently due to this. Dr Cherelle Urban to follow patient in the AM. UA remains pending yet. - Orders/Labs/Meds Orders: Active Orders 24 hr Category Date Time Status EKG Documentation Completion [RC] STAT Care 10/03/19 19:08 Active UA W/DARINEL RFLX IF INDICATED [URIN] Stat Lab 10/03/19 19:08 Ordered Sodium Chloride 0.9% [Saline Flush] Med 10/03/19 19:08 Active 10 ml FLUSH ASDIRECTED PRN Saline Lock Insert [OM.PC] Stat Oth 10/03/19 19:08 Ordered Medication Orders Sodium Chloride (Saline Flush) 10 ml FLUSH ASDIRECTED PRN PRN Reason: Keep Vein Open Labs: Laboratory Tests 10/03/19 10/03/19 Range/Units 19:25 19:25 WBC 10.7 H (4.0-10.0) x10^3/uL RBC 3.85 L (4.5-6.0) x10^6/uL Hgb 12.6 L D (14.0-18.0) g/dL Hct 37.9 L (40.0-52.0) % MCV 98.4 H (78.0-93.0) fL MCH 32.7 H (26.0-32.0) pg MCHC 33.2 (32.0-36.0) g/dL RDW Coeff of Chivo 13.9 (10.0-15.0) % Plt Count 137 (130-400) x10^3/uL Neut % (Auto) [place] Lymph % (Auto) [place] % (Auto) Apple Turner Eos % (Auto) [place] Baso % (Auto) [place] Add Manual Diff Yes Neutrophils % (Manual) 77 (50-80) % Band Neutrophils % 6 (0-6) % Lymphocytes % (Manual) 6 L (25-50) % Monocytes % (Manual) 10 (2-11) % Eosinophils % (Manual) 1 (0-4) % Platelet Estimate Decreased L Sodium 142 (136-145) mmol/L Potassium 3.8 (3.5-5.1) mmol/L Chloride 107 (98-107) mmol/L Carbon Dioxide 23 (21-32) mmol/L Anion Gap 15.8 (10-20) mmol/L BUN 7 (7-18) mg/dL Creatinine 1.2 (0.70-1.30) mg/dL Est Cr Clr Drug Dosing TNP Estimated GFR (MDRD) 58 Glucose 134 H (74-106) mg/dL Calcium 8.9 D (8.5-10.1) mg/dL Corrected Calcium 9.46 (8.5-10.1) mg/dL Total Bilirubin 1.2 H (0.2-1.0) mg/dL AST 25 (15-37) U/L ALT 30 (16-63) U/L Alkaline Phosphatase 82 (46-116) U/L Troponin I < 0.017 (<=0.056) ng/mL Total Protein 6.3 L (6.4-8.2) g/dL Albumin 3.3 L (3.4-5.0) g/dL Globulin 3.0 Albumin/Globulin Ratio 1.10 Meds: Medications Generic Name Dose Route Start Last Admin Trade Name Freq PRN Reason Stop Dose Admin Sodium Chloride 10 ml 10/03/19 19:08 Saline Flush FLUSH ASDIRECTED PRN Keep Vein Open Departure - Departure Time of Disposition: 21:52 Disposition: Refer to Observation Condition: Good Clinical Impression: Weakness, Alzheimer's dementia, late onset, Total self-care deficit Diarrhea Qualifiers: Diarrhea type: unspecified type Qualified Code(s): R19.7 - Diarrhea, unspecified - Discharge Information *PRESCRIPTION DRUG MONITORING PROGRAM REVIEWED*: Not Applicable *COPY OF PRESCRIPTION DRUG MONITORING REPORT IN PATIENT RODGER: Not Applicable Referrals: Vito Christiansen MD [Primary Care Provider] - Additional Instructions: -Admit to Observation -Dr Zachary Urban to see in the AM Sepsis Event Note - Focused Exam Date Exam was Performed: 10/03/19 Time Exam was Performed: 21:48 - My Orders Last 24 Hours: My Active Orders 10/03/19 19:08 EKG Documentation Completion [RC] STAT UA W/DARINEL RFLX IF INDICATED [URIN] Stat Sodium Chloride 0.9% [Saline Flush] 10 ml FLUSH ASDIRECTED PRN Saline Lock Insert [OM.PC] Stat - Assessment/Plan Last 24 Hours: My Active Orders 10/03/19 19:08 EKG Documentation Completion [RC] STAT UA W/DARINEL RFLX IF INDICATED [URIN] Stat Sodium Chloride 0.9% [Saline Flush] 10 ml FLUSH ASDIRECTED PRN Saline Lock Insert [OM.PC] Stat
[2019-10-03 19:55] LABS: CHLORIDE,CL 107 mmol/L (98-107); SODIUM,NA 142 mmol/L (136-145)
[2019-10-03 19:57] LABS: ANION GAP 15.8 mmol/L (10-20)
[2019-10-03] MEDS ORDERED: Albuterol HFA 18 Gm Inhaler INH PRN (22:54)
[2019-10-03] MEDS ORDERED: Non-Formulary Medication 1 Each (Warfarin [Coumadin] 5 MG) PO SCH (23:00)
[2019-10-03] MEDS ORDERED: LEUPROLIDE 30 MG IM SCH (23:00)
[2019-10-03] MEDS ORDERED: AMOXICILLIN 2000 MG PO SCH (23:00)
[2019-10-03] MEDS ORDERED: DENOSUMAB 120 MG SUBCUT SCH (23:00)
[2019-10-04] MEDS ORDERED: [UNRECOGNIZED DRUG - OTHER] PO SCH (08:00)
[2019-10-04] MEDS ORDERED: ENZALUTAMIDE PO SCH (08:00)
[2019-10-04] MEDS ORDERED: Fluticasone Propionate Nasal Spray 16 GM Bottle NASBOTH SCH ×2 (08:00→11:56)
[2019-10-04] MEDS: Calcium Carbonate/Vitamin D3 1250 MG-200 Unit Tab PO SCH (10:00)
[2019-10-04] MEDS: Metoprolol Succinate 50 MG Tab.ER PO SCH (10:00)
[2019-10-04] MEDS: Memantine 10 MG Tab PO SCH ×2 (10:00→19:52)
[2019-10-04] MEDS: Finasteride 5 MG Tab PO SCH (10:00)
[2019-10-04] MEDS: Tamsulosin 0.4 MG Cap.ER PO SCH (10:00)
[2019-10-04] MEDS: atorvaSTATin 10 MG Tab PO SCH (10:00)
--- NOTE | 2019-10-04 15:59 | PCM.PN ---
- General Info Date of Service: 10/04/19 Subjective Update: 79 yo male admitted under observation last evening after presenting to the ER due to ongoing diarrhea, generalized weakness, and another fall at home. He had been admitted to [place] in [place] 09/29-10/02 after initially being admitted here at [facility] for similar symptoms; he was transferred to [place] due to positive blood cultures for strep. There was a consideration for this being a contaminant so he did finish his antibiotic course with oral antibiotics after receiving IV in the hospital. He denies any complaints today. He has been eating and drinking normally. No diarrhea yet today. He has not had any fever. His notes that he seems to ambulate much better in the hospital than he does at home. She is uncomfortable with him returning home. They are considering admission to [facility] as of tomorrow. - Review of Systems General: Reports: Weakness. Denies: Fever, Chills HEENT: Reports: No Symptoms Pulmonary: Reports: No Symptoms Cardiovascular: Reports: No Symptoms Gastrointestinal: Reports: No Symptoms Genitourinary: Reports: No Symptoms Musculoskeletal: Reports: No Symptoms Skin: Reports: No Symptoms Neurological: Reports: No Symptoms - Patient Data Vitals - Most Recent: Last Vital Signs Temp 36.9 C 10/04/19 14:00 Pulse 63 10/04/19 14:00 Resp 18 10/04/19 06:00 BP 118/64 10/04/19 14:00 Pulse Ox 100 10/04/19 14:00 Weight - Most Recent: 68.039 kg I&O - Last 24 Hours: Intake & Output 10/04/19 10/04/19 10/04/19 06:59 14:59 22:59 Intake Total 350 790 Output Total 1 Balance 349 790 Lab Results Last 24 Hours: Laboratory Results - last 24 hr 10/03/19 10/03/19 10/04/19 Range/Units 19:25 19:25 02:24 WBC 10.7 H (4.0-10.0) x10^3/uL RBC 3.85 L (4.5-6.0) x10^6/uL Hgb 12.6 L D (14.0-18.0) g/dL Hct 37.9 L (40.0-52.0) % MCV 98.4 H (78.0-93.0) fL MCH 32.7 H (26.0-32.0) pg MCHC 33.2 (32.0-36.0) g/dL RDW Coeff of [place] 13.9 (10.0-15.0) % Plt Count 137 (130-400) x10^3/uL Neut % (Auto) Mechanical Lead Lymph % (Auto) Mechanical Lead [place] % (Auto) Mechanical Lead Eos % (Auto) Mechanical Lead Baso % (Auto) Mechanical Lead Add Manual Diff Yes Neutrophils % (Manual) 77 (50-80) % Band Neutrophils % 6 (0-6) % Lymphocytes % (Manual) 6 L (25-50) % Monocytes % (Manual) 10 (2-11) % Eosinophils % (Manual) 1 (0-4) % Platelet Estimate Decreased L Sodium 142 (136-145) mmol/L Potassium 3.8 (3.5-5.1) mmol/L Chloride 107 (98-107) mmol/L Carbon Dioxide 23 (21-32) mmol/L Anion Gap 15.8 (10-20) mmol/L BUN 7 (7-18) mg/dL Creatinine 1.2 (0.70-1.30) mg/dL Est Cr Clr Drug Dosing TNP Estimated GFR (MDRD) 58 Glucose 134 H (74-106) mg/dL Calcium 8.9 D (8.5-10.1) mg/dL Corrected Calcium 9.46 (8.5-10.1) mg/dL Total Bilirubin 1.2 H (0.2-1.0) mg/dL AST 25 (15-37) U/L ALT 30 (16-63) U/L Alkaline Phosphatase 82 (46-116) U/L Troponin I < 0.017 (<=0.056) ng/mL Total Protein 6.3 L (6.4-8.2) g/dL Albumin 3.3 L (3.4-5.0) g/dL Globulin 3.0 Albumin/Globulin Ratio 1.10 Urine Color Yellow (YELLOW) Urine Appearance Turbid H (CLEAR) Urine pH 5.5 (5.0-8.0) Ur Specific [place] >=1.030 Urine Protein 30 H (NEGATIVE) mg/dL Urine Glucose (UA) Negative (NEGATIVE) mg/dL Urine Ketones Negative (NEGATIVE) mg/dL Urine Occult Blood Trace-intact H (NEGATIVE) Urine Nitrite Negative (NEGATIVE) Urine Bilirubin Small H (NEGATIVE) Urine Urobilinogen 0.2 (0.2) EU/dL Ur Leukocyte Esterase Negative (NEGATIVE) Urine RBC 0-5 (NOT SEEN) /HPF Urine WBC Not seen (NOT SEEN) /HPF Amorphous Sediment Many Urine Bacteria Few H (NEGATIVE) /HPF Urine Mucus Not seen (NEGATIVE) /LPF Med Orders - Current: Current Medications Albuterol (Ventolin Hfa) 0 gm INH Q4H PRN PRN Reason: Wheezing Atorvastatin Calcium (Lipitor) 10 mg PO DAILY [facility] Last Admin: 10/04/19 10:00 Dose: 10 mg Calcium Carbonate (Calcium Carbonate/Vitamin D 1250 Mg-200 Unit) 1 tab PO DAILY [facility] Last Admin: 10/04/19 10:00 Dose: 1 tab Donepezil HCl (Aricept) 10 mg PO BEDTIME [facility] Finasteride (Proscar) 5 mg PO DAILY [facility] Last Admin: 10/04/19 10:00 Dose: 5 mg Fluticasone Propionate (Flonase) 0 gm NASBOTH DAILY [facility] Memantine (Namenda) 10 mg PO BID [facility] Last Admin: 10/04/19 10:00 Dose: 10 mg Metoprolol Succinate (Toprol Xl) 50 mg PO DAILY [facility] Last Admin: 10/04/19 10:00 Dose: 50 mg Mupirocin (Bactroban Oint) 0 gm TOP TID [facility] Enzalutamide [Xtandi ] 160 Mg (Own Supply ) Chemo Med 0 mg PO DAILY [facility] Ipratropium [place] ((Own Supply)) 0 sprays NASBOTH TID [facility] Fluticasone/Salmeterol (Fluticasone-Salmeterol 113-14 Mcg Powder Inh) 0 puff INH BID [facility] Sodium Chloride (Saline Flush) 10 ml FLUSH ASDIRECTED PRN PRN Reason: Keep Vein Open Tamsulosin HCl (Flomax) 0.8 mg PO DAILY [facility] Last Admin: 10/04/19 10:00 Dose: 0.8 mg Warfarin Sodium (Coumadin) 5 mg PO ONETIME ONE Stop: 10/04/19 17:01 Discontinued Medications Fluticasone Propionate (Flonase) 0 gm NASBOTH DAILY [facility] Sodium Chloride (Normal Saline) 1,000 mls @ 999 mls/hr IV ONETIME ONE Stop: 10/03/19 19:42 Last Admin: 10/03/19 18:42 Dose: 999 mls/hr Non-Formulary Medication (Amoxicillin [Amoxicillin]) 2,000 mg PO ASDIRECTED [facility] Non-Formulary Medication (Denosumab [Xgeva]) 120 mg SUBCUT Q28D [facility] Last Admin: 10/04/19 10:51 Dose: Not Given Non-Formulary Medication (Leuprolide [Lupron Depot 4-Month]) 30 mg IM Q120D [facility] Last Admin: 10/04/19 10:52 Dose: Not Given Non-Formulary Medication (Warfarin [Coumadin]) 5 mg PO ASDIRECTED [facility] - Exam General: Alert, Cooperative, No Acute Distress HEENT: Mucous Membr. Moist/[place] Neck: Supple, Trachea Midline, No Thyromegaly. No: Lymphadenopathy Lungs: Clear to Auscultation, Normal Respiratory Effort Cardiovascular: Regular Rate, Regular Rhythm, No Murmurs GI/Abdominal Exam: Normal Bowel Sounds, Soft, Non-Tender, No Organomegaly, No Distention, No Mass Extremities: Non-Tender, No Pedal Edema, Normal Capillary Refill Peripheral Pulses: 2+: Radial (L), Radial (R) Skin: Warm, Dry, Intact Sepsis Event Note - Evaluation Sepsis Screening Result: No Definite Risk - Focused Exam Vital Signs: Vital Signs Temp Pulse Pulse Resp BP BP Pulse Ox 10/04/19 14:00 36.9 C 63 118/64 100 10/04/19 13:04 37.4 C 60 105/47 L 100 10/04/19 10:00 60 118/46 L 10/04/19 06:00 35.9 C L 60 18 118/46 L 100 Date Exam was Performed: 10/04/19 Time Exam was Performed: 16:23 - Problem List & Annotations (1) Weakness SNOMED Code(s): 70110059 Code(s): R53.1 - WEAKNESS Status: Acute Current Visit: Yes (2) Alzheimer's dementia, late onset SNOMED Code(s): 446488659 Code(s): G30.1 - ALZHEIMER'S DISEASE WITH LATE ONSET; F02.80 - DEMENTIA IN OTH DISEASES CLASSD ELSWHR W/O BEHAVRL DISTURB Status: Chronic Current Visit : Yes Qualifiers: Dementia behavioral disturbance: without behavioral disturbance Qualified Code(s): G30.1 - Alzheimer's disease with late onset; F02.80 - Dementia in other diseases classified elsewhere without behavioral disturbance (3) Diarrhea SNOMED Code(s): 64705894 Code(s): R19.7 - DIARRHEA, UNSPECIFIED Status: Chronic Priority: High Current Visit: Yes Qualifiers: Diarrhea type: unspecified type Qualified Code(s): R19.7 - Diarrhea, unspecified (4) Atrial fibrillation SNOMED Code(s): 24930016 Code(s): I48.91 - UNSPECIFIED ATRIAL FIBRILLATION Status: Chronic Priority: Medium Current Visit: No Qualifiers: Atrial fibrillation type: paroxysmal Qualified Code(s): I48.0 - Paroxysmal atrial fibrillation (5) Hypertension SNOMED Code(s): 44399768 Code(s): I10 - ESSENTIAL (PRIMARY) HYPERTENSION Status: Chronic Current Visit: No Qualifiers: Hypertension type: essential hypertension Qualified Code(s): I10 - Essential (primary) hypertension (6) Prostate cancer SNOMED Code(s): 508311078 Code(s): C61 - MALIGNANT NEOPLASM OF PROSTATE Status: Chronic Priority: Medium Current Visit: No - Problem List Review Problem List Initiated/Reviewed/Updated: Yes - My Orders Last 24 Hours: My Active Orders 10/04/19 08:23 OT Evaluation and Treatment [CONS] Routine PT Evaluation and Treatment [CONS] Routine 10/04/19 17:00 Warfarin [Coumadin] 5 mg PO ONETIME ONE 10/05/19 05:11 INR,PT,PROTHROMBIN TIME [COAG] Routine - Assessment Assessment:: 79 yo male admitted with weakness and diarrhea with inability of his to care for him at home at this time. - Plan Plan:: #1 Generalized Weakness #2 Alzheimer's Dementia - He was evaluated by PT today and it was felt that he did well. However, there is some concern that he will not ambulate as well in the evenings due to his dementia. Therefore, nursing staff plan to ambulate him this evening. If this does not go well, then PT would recommend swing bed admission for further strengthening. If this still goes well, then he is not really a rehab candidate. In that case, he would be discharged to assisted living tomorrow. #3 Diarrhea - Biopsies from procedures last week are pending. - He has not had any issues with diarrhea since hospital admission. #4 A-fib #5 Hypertension #6 Prostate Cancer - Continue home medications. Patient will remain on observation overnight given further evaluation pending as above - anticipate transition to swing bed or discharge to [facility] as of tomorrow. Continue home medications. Recheck INR in the morning. Patient is DNR - had been discussed on admission. No indication for VTE prophylaxis as he is on warfarin already.
[2019-10-04] MEDS: Mupirocin Oint 22 GM Tube TOP SCH (16:01)
[2019-10-04] MEDS: IPRATROPIUM BROMIDE NASBOTH SCH ×2 (16:02→19:52)
[2019-10-04] MEDS: Fluticasone-Salmeterol 113-14 MCG Powder Inhalant INH SCH ×2 (16:02→19:53)
[2019-10-04] MEDS ORDERED: Warfarin 5 MG Tab PO ONE (17:00)
[2019-10-04] MEDS: [UNRECOGNIZED DRUG - OTHER] PO SCH (18:16)
[2019-10-04] MEDS: ENZALUTAMIDE PO SCH (18:16)
[2019-10-04] MEDS: MUPIROCIN TOP SCH (19:53)
[2019-10-04] MEDS ORDERED: Donepezil 10 MG Tab PO SCH (20:00)
--- NOTE | 2019-10-05 05:59 | PCM.DCSUM1 ---
Discharge Summary - Hospital Course Brief History: Mr. Rincon is an 79 yo male who was admitted under observation for generalized weakness related to a recent hospitalization in [place] for strep bacteremia and diarrhea. - Discharge Data Discharge Date: 10/05/19 Discharge Disposition: DC/Tfer to Other 70 Condition: Stable - Referral to Home Health Primary Care Physician: Vito Christiansen MD - Discharge Diagnosis/Problem(s) (1) Weakness SNOMED Code(s): 22346032 ICD Code: R53.1 - WEAKNESS Status: Acute Current Visit: Yes (2) Alzheimer's dementia, late onset SNOMED Code(s): 779501145 ICD Code: G30.1 - ALZHEIMER'S DISEASE WITH LATE ONSET; F02.80 - DEMENTIA IN OTH DISEASES CLASSD ELSWHR W/O BEHAVRL DISTURB Status: Chronic Current Visit : Yes Qualifiers: Dementia behavioral disturbance: without behavioral disturbance Qualified Code(s): G30.1 - Alzheimer's disease with late onset; F02.80 - Dementia in other diseases classified elsewhere without behavioral disturbance (3) Diarrhea SNOMED Code(s): 22714238 ICD Code: R19.7 - DIARRHEA, UNSPECIFIED Status: Chronic Priority: High Current Visit: Yes Qualifiers: Diarrhea type: unspecified type Qualified Code(s): R19.7 - Diarrhea, unspecified (4) Atrial fibrillation SNOMED Code(s): 62242197 ICD Code: I48.91 - UNSPECIFIED ATRIAL FIBRILLATION Status: Chronic Priority: Medium Current Visit: No Qualifiers: Atrial fibrillation type: paroxysmal Qualified Code(s): I48.0 - Paroxysmal atrial fibrillation (5) Hypertension SNOMED Code(s): 28880953 ICD Code: I10 - ESSENTIAL (PRIMARY) HYPERTENSION Status: Chronic Current Visit: No Qualifiers: Hypertension type: essential hypertension Qualified Code(s): I10 - Essential (primary) hypertension (6) Prostate cancer SNOMED Code(s): 545305627 ICD Code: C61 - MALIGNANT NEOPLASM OF PROSTATE Status: Chronic Priority: Medium Current Visit: No - Patient Summary/Data Operative Procedure(s) Performed: none Complications: none Consults: Consultations 10/03/19 22:13 Consult to Case Management/Dry Plasterer Helper [CONS] Routine 10/04/19 08:23 OT Evaluation and Treatment [CONS] Routine PT Evaluation and Treatment [CONS] Routine Labs Pending at D/C: none Recommended Follow-up Testing/Procedures: none Planned Operative Procedure(s) after DC: none Hospital Course: He was admitted to observation and his home medications were continued. His hospitalization was otherwise uncomplicated. He was evaluated by physical therapy who did not feel he qualified for a swing bed stay. They did recommend walking with nursing later in the day to assess if he had any weakness later on due to his dementia but this also went well. Therefore, case management met with the patient and his family. The plan is for him to discharge to [facility] with continuing home health. He has already had home health set up and does not need a new odlb-ao-anut completion. - Patient Instructions Diet: Usual Diet as Tolerated - Discharge Plan *PRESCRIPTION DRUG MONITORING PROGRAM REVIEWED*: Not Applicable *COPY OF PRESCRIPTION DRUG MONITORING REPORT IN PATIENT RODGER: Not Applicable Home Medications: Home Meds Albuterol [Proventil HFA] 2 puff INH Q4H PRN 09/13/19 [History] Amoxicillin 2,000 mg PO ASDIRECTED 09/13/19 [History] Calcium Carbonate/Vitamin D3 [Calcium 600 + Vit D Tablet] 1 tab PO DAILY [History] Denosumab [Xgeva] 120 mg SUBCUT Q28D 09/13/19 [History] Donepezil HCl [Aricept] 10 mg PO BEDTIME 09/13/19 [History] Enzalutamide [Xtandi] 160 mg PO DAILY 09/13/19 [History] Finasteride 5 mg PO DAILY 09/13/19 [History] Fluticasone Propionate [Flonase] 1 spray NASBOTH DAILY 09/13/19 [History] Fluticasone/Vilanterol [Breo Ellipta 100-25 MCG Inhalation Kit] 1 puff PO DAILY 09/13/19 [History] Ipratropium [place] 2 sprays NASBOTH TID 09/13/19 [History] Leuprolide [Lupron Depot 4-Month] 30 mg IM Q120D 09/13/19 [History] Memantine HCl 10 mg PO BID 09/13/19 [History] Metoprolol Succinate [Toprol Xl] 50 mg PO DAILY 09/13/19 [History] Multivit-Min/FA/Lycopen/Lutein [Centrum Silver Tablet] 1 tab PO DAILY 09/13/19 [ History] [place]-3/DHA/Epa/Fish Oil [[place]-3 Fish Oil 1,200 MG Sfgl] 1,200 mg PO DAILY [History] Tamsulosin HCl [Flomax] 0.8 mg PO DAILY 09/13/19 [History] Warfarin [Coumadin] 5 mg PO ASDIRECTED 09/13/19 [History] atorvaSTATin [Lipitor] 10 mg PO BEDTIME 09/13/19 [History] Mupirocin Oint [Bactroban Oint] 1 applic TP BID 09/28/19 [History] Cholestyramine (With Sugar) [Cholestyramine Powder] 4 gm PO WITHBREAKFAST [History] Forms: ED Department Discharge Referrals: Vito Christiansen MD [Primary Care Provider] - - Discharge Summary/Plan Comment DC Time >30 min.: No - General Info Date of Service: 10/05/19 Subjective Update: Patient states he is feeling well this morning and he denies any concerns. - Review of Systems General: Reports: No Symptoms HEENT: Reports: No Symptoms Pulmonary: Reports: No Symptoms Cardiovascular: Reports: No Symptoms Gastrointestinal: Reports: No Symptoms Genitourinary: Reports: No Symptoms Musculoskeletal: Reports: No Symptoms Skin: Reports: No Symptoms Neurological: Reports: No Symptoms - Patient Data Vitals - Most Recent: Last Vital Signs Temp 36.2 C 10/05/19 05:11 Pulse 64 10/05/19 05:11 Resp 17 10/05/19 05:11 BP 108/49 L 10/05/19 05:11 Pulse Ox 96 10/05/19 02:00 Weight - Most Recent: 68.039 kg I&O - Last 24 hours: Intake & Output 10/04/19 10/04/19 10/05/19 14:59 22:59 06:59 Intake Total 790 120 Balance 790 120 Lab Results - Last 24 hrs: Laboratory Results - last 24 hr 10/04/19 Range/Units 02:24 Urine Color Yellow (YELLOW) Urine Appearance Turbid H (CLEAR) Urine pH 5.5 (5.0-8.0) Ur Specific [place] >=1.030 Urine Protein 30 H (NEGATIVE) mg/dL Urine Glucose (UA) Negative (NEGATIVE) mg/dL Urine Ketones Negative (NEGATIVE) mg/dL Urine Occult Blood Trace-intact H (NEGATIVE) Urine Nitrite Negative (NEGATIVE) Urine Bilirubin Small H (NEGATIVE) Urine Urobilinogen 0.2 (0.2) EU/dL Ur Leukocyte Esterase Negative (NEGATIVE) Urine RBC 0-5 (NOT SEEN) /HPF Urine WBC Not seen (NOT SEEN) /HPF Amorphous Sediment Many Urine Bacteria Few H (NEGATIVE) /HPF Urine Mucus Not seen (NEGATIVE) /LPF Med Orders - Current: Current Medications Albuterol (Ventolin Hfa) 0 gm INH Q4H PRN PRN Reason: Wheezing Atorvastatin Calcium (Lipitor) 10 mg PO DAILY [facility] Last Admin: 10/04/19 10:00 Dose: 10 mg Calcium Carbonate (Calcium Carbonate/Vitamin D 1250 Mg-200 Unit) 1 tab PO DAILY [facility] Last Admin: 10/04/19 10:00 Dose: 1 tab Donepezil HCl (Aricept) 10 mg PO BEDTIME [facility] Last Admin: 10/04/19 19:52 Dose: 10 mg Finasteride (Proscar) 5 mg PO DAILY [facility] Last Admin: 10/04/19 10:00 Dose: 5 mg Fluticasone Propionate (Flonase) 0 gm NASBOTH DAILY [facility] Memantine (Namenda) 10 mg PO BID [facility] Last Admin: 10/04/19 19:52 Dose: 10 mg Metoprolol Succinate (Toprol Xl) 50 mg PO DAILY [facility] Last Admin: 10/04/19 10:00 Dose: 50 mg Mupirocin (Bactroban Oint) 0 gm TOP TID [facility] Last Admin: 10/04/19 19:53 Dose: 1 applic Ipratropium [place] ((Own Supply)) 0 sprays NASBOTH TID [facility] Last Admin: 10/04/19 19:52 Dose: Not Given Enzalutamide [Xtandi ] 160 Mg (Own Supply ) Chemo Med 0 mg PO DAILY [facility] Last Admin: 10/04/19 18:16 Dose: 160 mg Fluticasone/Salmeterol (Fluticasone-Salmeterol 113-14 Mcg Powder Inh) 0 puff INH BID [facility] Last Admin: 10/04/19 19:53 Dose: Not Given Sodium Chloride (Saline Flush) 10 ml FLUSH ASDIRECTED PRN PRN Reason: Keep Vein Open Tamsulosin HCl (Flomax) 0.8 mg PO DAILY [facility] Last Admin: 10/04/19 10:00 Dose: 0.8 mg Discontinued Medications Fluticasone Propionate (Flonase) 0 gm NASBOTH DAILY [facility] Last Admin: 10/04/19 16:03 Dose: Not Given Sodium Chloride (Normal Saline) 1,000 mls @ 999 mls/hr IV ONETIME ONE Stop: 10/03/19 19:42 Last Admin: 10/03/19 18:42 Dose: 999 mls/hr Mupirocin (Bactroban Oint) 0 gm TOP TID [facility] Last Admin: 10/04/19 16:01 Dose: Not Given Non-Formulary Medication (Amoxicillin [Amoxicillin]) 2,000 mg PO ASDIRECTED [facility] Non-Formulary Medication (Denosumab [Xgeva]) 120 mg SUBCUT Q28D [facility] Last Admin: 10/04/19 10:51 Dose: Not Given Enzalutamide [Xtandi ] 160 Mg (Own Supply ) Chemo Med 0 mg PO DAILY [facility] Last Admin: 10/04/19 16:02 Dose: Not Given Non-Formulary Medication (Leuprolide [Lupron Depot 4-Month]) 30 mg IM Q120D [facility] Last Admin: 10/04/19 10:52 Dose: Not Given Non-Formulary Medication (Warfarin [Coumadin]) 5 mg PO ASDIRECTED [facility] Warfarin Sodium (Coumadin) 5 mg PO ONETIME ONE Stop: 10/04/19 17:01 Last Admin: 10/04/19 17:32 Dose: 5 mg - Exam General: Reports: Alert, Cooperative, No Acute Distress HEENT: Reports: Mucous Membr. Moist/[place] Neck: Reports: Supple, Trachea Midline, No Thyromegaly. Denies: Lymphadenopathy Lungs: Reports: Clear to Auscultation, Normal Respiratory Effort Cardiovascular: Reports: Regular Rate, Regular Rhythm, No Murmurs GI/Abdominal Exam: Normal Bowel Sounds, Soft, Non-Tender, No Organomegaly, No Distention, No Mass Extremities: Non-Tender, No Pedal Edema, Normal Capillary Refill Skin: Reports: Warm, Dry, Intact
[2019-10-05] MEDS: Metoprolol Succinate 50 MG Tab.ER PO SCH (08:17)
[2019-10-05] MEDS: atorvaSTATin 10 MG Tab PO SCH (08:18)
[2019-10-05] MEDS: Calcium Carbonate/Vitamin D3 1250 MG-200 Unit Tab PO SCH (08:18)
[2019-10-05] MEDS: Memantine 10 MG Tab PO SCH (08:18)
[2019-10-05] MEDS: Finasteride 5 MG Tab PO SCH (08:18)
[2019-10-05] MEDS: Tamsulosin 0.4 MG Cap.ER PO SCH (08:18)
[2019-10-05] MEDS: MUPIROCIN TOP SCH ×2 (08:18→11:55)
[2019-10-05] MEDS: [UNRECOGNIZED DRUG - OTHER] PO SCH (08:19)
[2019-10-05] MEDS: ENZALUTAMIDE PO SCH (08:19)
[2019-10-05] MEDS: Fluticasone-Salmeterol 113-14 MCG Powder Inhalant INH SCH (08:20)
[2019-10-05] MEDS: IPRATROPIUM BROMIDE NASBOTH SCH ×2 (08:20→11:55)
[2019-10-05 11:30] VITALS: BP 121/58; PULSE 60
== END 2019-10-05 13:24 | disposition swing bed (61) ==
LOC: VM.ED 18:42 → VM.MS 21:54
PROVIDERS: ADMIT Family Medicine; ATTEND Family Medicine
DX: R53.1 Weakness (principal); G30.1 Alzheimer's disease with late onset; F02.80 Dementia in other diseases classified elsewhere, unspecified severity, without behavioral disturbance, psychotic disturbance, mood disturbance, and anxiety; R19.7 Diarrhea, unspecified; I48.0 Paroxysmal atrial fibrillation; I10 Essential (primary) hypertension; C61 Malignant neoplasm of prostate; Z79.2 Long term (current) use of antibiotics; Z79.01 Long term (current) use of anticoagulants; Z79.899 Other long term (current) drug therapy; Z88.8 Allergy status to other drugs, medicaments and biological substances; Z79.51 Long term (current) use of inhaled steroids
CPT/HCPCS: 36415; 80053; 81001; 84484; 85025; 85610; 93005; 93010; 96360; 97161-GP; 99284-GF; 99285-25; A9270-GY; J7030

== ENCOUNTER 2019-10-05 13:07 | Inpatient (IN) | payer MEDICARE, BC ==
[2019-10-05] MEDS ORDERED: Albuterol HFA 18 Gm Inhaler INH PRN (14:38)
--- NOTE | 2019-10-05 14:42 | PCM.HP.2 ---
H&P History of Present Illness - General Date of Service: 10/05/19 Admit Problem/Dx: Admission Diagnosis/Problem Admission Diagnosis/Problem Weakness Source of Information: Patient, Family History Limitations: Reports: Altered Mental Status (underlying dementia) - History of Present Illness Initial Comments - Free Text/Narative: Mr. Rincon is an 79 yo male who is admitted to self pay swing bed while awaiting availability of a [facility] bed. He was hospitalized in [place] 09/29- after initially being admitted to [facility]. Discharge diagnosis was streptococcal bacteremia but there was high suspicion this was a contaminant. He did receive IV antibiotics in the hospital but then was discharged on oral antibiotics to complete the course. He was evaluated by PT and OT while hospitalizaed in [place] and it was felt 15/03 supervision was most appropriate. His family felt they could provide this at home and he was discharged home under the care of his . Since returning home, this has not gone well. He has continued with diarrhea. He has also continued with presyncopal events and multiple falls. Therefore, he was brought to the emergency room on 10/03. Due to having an unremarkable work-up at that time, he did not meet criteria for an inpatient admission. His did not feel she was able to take him home; therefore, he was admitted under observation. The plan had been to discharge him to [facility] today but his family changed their mind and are hoping for SNF placement instead. Therefore, he was transitioned to self pay swing bed until this can be achieved. The patient himself denies any concerns or questions. - Related Data Allergies/Adverse Reactions: Allergies Allergy/AdvReac Type Severity Reaction Status Date / Time lisinopril AdvReac Cough Verified 10/04/19 10:36 Home Medications: Home Meds Albuterol [Proventil HFA] 2 puff INH Q4H PRN 09/13/19 [History] Donepezil HCl [Aricept] 10 mg PO BEDTIME 09/13/19 [History] Enzalutamide [Xtandi] 160 mg PO DAILY 09/13/19 [History] Finasteride 5 mg PO DAILY 09/13/19 [History] Fluticasone Propionate [Flonase] 1 spray NASBOTH DAILY 09/13/19 [History] Fluticasone/Vilanterol [Breo Ellipta 100-25 MCG Inhalation Kit] 1 puff PO DAILY 09/13/19 [History] Ipratropium [place] 2 sprays NASBOTH TID 09/13/19 [History] Memantine HCl 10 mg PO BID 09/13/19 [History] Metoprolol Succinate [Toprol Xl] 50 mg PO DAILY 09/13/19 [History] Tamsulosin HCl [Flomax] 0.8 mg PO DAILY 09/13/19 [History] Warfarin [Coumadin] 5 mg PO ASDIRECTED 09/13/19 [History] atorvaSTATin [Lipitor] 10 mg PO BEDTIME 09/13/19 [History] Mupirocin Oint [Bactroban Oint] 1 applic TP BID 09/28/19 [History] Past Medical History HEENT History: Reports: None Cardiovascular History: Reports: Afib, High Cholesterol, Hypertension, Other ( See Below) 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 - Past Surgical History Cardiovascular Surgical History: Reports: Pacer, Other (See Below) Other Cardiovascular Surgeries/Procedures: dual chamber pacemaker GI Surgical History: Reports: Colonoscopy, EGD Dermatological Surgical History: Reports: Skin Biopsy Social & Family History - Family History Cardiac: Reports: CAD Oncologic: Reports: Lung - Tobacco Use Smoking Status *Q: Current Some Day Smoker - Caffeine Use Caffeine Use: Reports: None - Alcohol Use Alcohol Use in Last Twelve Months: No - Recreational Drug Use Recreational Drug Use: No - Living Situation & Occupation Living situation: Reports: , with Significant Other Occupation: Retired H&P Review of Systems - Review of Systems: Review Of Systems: See Below General: Reports: No Symptoms HEENT: Reports: No Symptoms Pulmonary: Reports: No Symptoms Cardiovascular: Reports: No Symptoms Gastrointestinal: Reports: No Symptoms Genitourinary: Reports: No Symptoms Musculoskeletal: Reports: No Symptoms Skin: Reports: No Symptoms Psychiatric: Reports: No Symptoms Neurological: Reports: No Symptoms Exam - Exam Exam: See Below - Vital Signs Weight: 68.039 kg - Exam General: Alert, Cooperative HEENT: Conjunctiva Clear, Mucosa Moist & [place], Pupils Equal, Pupils Reactive Neck: Supple, Trachea Midline. No: Lymphadenopathy, Thyromegaly Lungs: Clear to Auscultation, Normal Respiratory Effort Cardiovascular: Regular Rate, Regular Rhythm, Normal S1, Normal S2 GI/Abdominal Exam: Normal Bowel Sounds, Soft, Non-Tender, No Organomegaly, No Distention, No Mass Extremities: Normal Inspection, Non-Tender, No Pedal Edema, Normal Capillary Refill Peripheral Pulses: 2+: Radial (L), Radial (R) Skin: Warm, Dry, Intact *Q Meaningful Use (ADM) - VTE *Q VTE Anticoagulation Contraindications: Med/TX Not Indicated/Need - Problem List (1) Weakness SNOMED Code(s): 72550750 ICD Code: R53.1 - WEAKNESS Status: Acute Current Visit: No (2) Alzheimer's dementia, late onset SNOMED Code(s): 015540715 ICD Code: G30.1 - ALZHEIMER'S DISEASE WITH LATE ONSET; F02.80 - DEMENTIA IN OTH DISEASES CLASSD ELSWHR W/O BEHAVRL DISTURB Status: Chronic Current Visit : No Qualifiers: Dementia behavioral disturbance: without behavioral disturbance Qualified Code(s): G30.1 - Alzheimer's disease with late onset; F02.80 - Dementia in other diseases classified elsewhere without behavioral disturbance (3) Atrial fibrillation SNOMED Code(s): 06244336 ICD Code: I48.91 - UNSPECIFIED ATRIAL FIBRILLATION Status: Chronic Priority: Medium Current Visit: No Qualifiers: Atrial fibrillation type: paroxysmal Qualified Code(s): I48.0 - Paroxysmal atrial fibrillation (4) Diarrhea SNOMED Code(s): 20192038 ICD Code: R19.7 - DIARRHEA, UNSPECIFIED Status: Chronic Priority: High Current Visit: No Qualifiers: Diarrhea type: unspecified type Qualified Code(s): R19.7 - Diarrhea, unspecified (5) Hypertension SNOMED Code(s): 19966978 ICD Code: I10 - ESSENTIAL (PRIMARY) HYPERTENSION Status: Chronic Current Visit: No Qualifiers: Hypertension type: essential hypertension Qualified Code(s): I10 - Essential (primary) hypertension (6) Prostate cancer SNOMED Code(s): 584197194 ICD Code: C61 - MALIGNANT NEOPLASM OF PROSTATE Status: Chronic Priority: Medium Current Visit: No Problem List Initiated/Reviewed/Updated: Yes Orders Last 24hrs: Active Orders 24 hr Category Date Time Status Admission Status [Patient Status] [ADT] Routine ADT 10/05/19 13:22 Active Notify Provider Vital Signs [RC] ASDIRECTED Care 10/05/19 14:36 Ordered Oxygen Therapy [RC] PRN Care 10/05/19 14:36 Ordered Up With Assistance [RC] ASDIRECTED Care 10/05/19 14:36 Ordered VTE/DVT Education [RC] PER UNIT ROUTINE Care 10/05/19 14:36 Ordered Vital Signs [RC] PER UNIT ROUTINE Care 10/05/19 14:36 Ordered Regular Diet [DIET] Diet 10/05/19 Dinner Ordered Albuterol [Proventil HFA] Med 10/05/19 14:38 Ordered 2 puff INH Q4H PRN Cholestyramine (With Sugar) [Cholestyramine Powder] Med 10/06/19 08:00 Ordered 4 gm PO WITHBREAKFAST Donepezil HCl [Aricept] Med 10/05/19 20:00 Ordered 10 mg PO BEDTIME Enzalutamide [Xtandi] Med 10/06/19 08:00 Ordered 160 mg PO DAILY Finasteride [Finasteride] Med 10/06/19 08:00 Ordered 5 mg PO DAILY Fluticasone Propionate [Flonase] Med 10/06/19 08:00 Ordered 1 spray NASBOTH DAILY Fluticasone/Vilanterol Med 10/06/19 08:00 Ordered 1 puff PO DAILY Ipratropium [place] [Ipratropium [place]] Med 10/05/19 20:00 Ordered 2 sprays NASBOTH TID Memantine HCl [Memantine HCl] Med 10/05/19 20:00 Ordered 10 mg PO BID Metoprolol Succinate [Toprol Xl] Med 10/06/19 08:00 Ordered 50 mg PO DAILY Tamsulosin HCl [Flomax] Med 10/06/19 08:00 Ordered 0.8 mg PO DAILY Warfarin [Coumadin] Med 10/05/19 17:00 Ordered 7.5 mg PO Q24H atorvaSTATin [Lipitor] Med 10/05/19 20:00 Ordered 10 mg PO BEDTIME Anticoagulation Contraindications VTE [AST] Per Unit Oth 10/05/19 14:36 Ordered Routine Resuscitation Status Routine Resus Stat 10/05/19 14:36 Ordered Medication Orders Non-Formulary Medication (Albuterol [Proventil Hfa]) 2 puff INH Q4H PRN PRN Reason: Wheezing Non-Formulary Medication (Atorvastatin [Lipitor]) 10 mg PO BEDTIME SADIE Non-Formulary Medication (Cholestyramine (With Sugar) [Cholestyramine Powder]) 4 gm PO WITHBREAKFAST SADIE Non-Formulary Medication (Donepezil Hcl [Aricept]) 10 mg PO BEDTIME SADIE Non-Formulary Medication (Enzalutamide [Xtandi]) 160 mg PO DAILY SADIE Non-Formulary Medication (Finasteride [Finasteride]) 5 mg PO DAILY SADIE Non-Formulary Medication (Fluticasone Propionate [Flonase]) 1 spray NASBOTH DAILY SADIE Non-Formulary Medication (Fluticasone/Vilanterol) 1 puff PO DAILY SADIE Non-Formulary Medication (Ipratropium [place] [Ipratropium [place]]) 2 sprays NASBOTH TID SADIE Non-Formulary Medication (Memantine Hcl [Memantine Hcl]) 10 mg PO BID SADIE Non-Formulary Medication (Metoprolol Succinate [Toprol Xl]) 50 mg PO DAILY SADIE Non-Formulary Medication (Tamsulosin Hcl [Flomax]) 0.8 mg PO DAILY SADIE Non-Formulary Medication (Warfarin [Coumadin]) 7.5 mg PO Q24H SADIE Assessment/Plan Comment:: 79 yo male admitted to self pay [facility] bed while awaiting transition to a fdc facility. His home medications will be continued apart from those that will not be due while he is hospitalized. He has had no acute issues ; the diarrhea he was having at home has not been an issue since he was admitted. Patient does not need VTE prophylaxis as he is on warfarin. INR today was subtherapeutic but he does not require bridging given the diagnosis is atrial fibrillation; he has also been quite ambulatory during his admission. Code status is DNR/DNI - confirmed with the patient and his on admission.
[2019-10-05] MEDS ORDERED: ATORVASTATIN 10 MG PO SCH (20:00)
[2019-10-05] MEDS ORDERED: DONEPEZIL HCL 10 MG PO SCH (20:00)
[2019-10-06] MEDS ORDERED: METOPROLOL SUCCINATE 100 MG PO SCH (08:00)
[2019-10-06] MEDS: IPRATROPIUM 0.03% NAS SCH ×2 (12:16→20:40)
[2019-10-06] MEDS: MUPIROCIN TOP SCH ×2 (12:19→20:39)
[2019-10-06] MEDS: Cholestyramine/Aspartame Powder 4 GM Packet PO SCH (12:27)
[2019-10-06] MEDS: XTANDI 40 MG PO SCH (12:29)
[2019-10-06] MEDS: METOPROLOL 100 MG PO SCH (12:32)
[2019-10-06] MEDS: [UNRECOGNIZED DRUG - OTHER] INH SCH (12:33)
[2019-10-06] MEDS: FLUTICASONE INH SCH (12:33)
[2019-10-06] MEDS: Warfarin 5 MG Tab PO SCH (20:39)
[2019-10-06] MEDS: Donepezil 10 MG Tab PO SCH (20:39)
[2019-10-06] MEDS: atorvaSTATin 10 MG Tab PO SCH (20:40)
[2019-10-06] MEDS: Memantine 10 MG Tab PO SCH (20:41)
[2019-10-07] MEDS: [UNRECOGNIZED DRUG - OTHER] INH SCH (08:18)
[2019-10-07] MEDS: FLUTICASONE INH SCH (08:18)
[2019-10-07] MEDS: IPRATROPIUM 0.03% NAS SCH ×3 (08:19→20:38)
[2019-10-07] MEDS: XTANDI 40 MG PO SCH (08:21)
[2019-10-07] MEDS: Cholestyramine/Aspartame Powder 4 GM Packet PO SCH (08:22)
[2019-10-07] MEDS: MUPIROCIN TOP SCH ×3 (08:23→20:37)
[2019-10-07] MEDS: Memantine 10 MG Tab PO SCH ×2 (08:24→20:38)
[2019-10-07] MEDS: METOPROLOL 100 MG PO SCH (08:24)
[2019-10-07] MEDS: Tamsulosin 0.4 MG Cap.ER PO SCH (08:24)
[2019-10-07] MEDS: Fluticasone Propionate Nasal Spray 16 GM Bottle NASBOTH SCH (08:26)
[2019-10-07] MEDS: atorvaSTATin 10 MG Tab PO SCH (20:37)
[2019-10-07] MEDS: Donepezil 10 MG Tab PO SCH (20:37)
[2019-10-07] MEDS: Warfarin 5 MG Tab PO SCH (20:37)
[2019-10-08] MEDS: XTANDI 40 MG PO SCH (10:52)
[2019-10-08] MEDS: Cholestyramine/Aspartame Powder 4 GM Packet PO SCH (10:53)
[2019-10-08] MEDS: Fluticasone Propionate Nasal Spray 16 GM Bottle NASBOTH SCH (10:53)
[2019-10-08] MEDS: FLUTICASONE INH SCH (10:53)
[2019-10-08] MEDS: [UNRECOGNIZED DRUG - OTHER] INH SCH (10:53)
[2019-10-08] MEDS: MUPIROCIN TOP SCH ×3 (10:54→20:50)
[2019-10-08] MEDS: Memantine 10 MG Tab PO SCH ×2 (10:54→20:51)
[2019-10-08] MEDS: IPRATROPIUM 0.03% NAS SCH ×3 (10:54→20:50)
[2019-10-08] MEDS: METOPROLOL 100 MG PO SCH (10:56)
[2019-10-08] MEDS: Tamsulosin 0.4 MG Cap.ER PO SCH (10:56)
[2019-10-08] MEDS: Donepezil 10 MG Tab PO SCH (20:49)
[2019-10-08] MEDS: atorvaSTATin 10 MG Tab PO SCH (20:50)
[2019-10-08] MEDS: Warfarin 5 MG Tab PO SCH (20:50)
[2019-10-09] MEDS: Cholestyramine/Aspartame Powder 4 GM Packet PO SCH (09:33)
[2019-10-09] MEDS: FLUTICASONE INH SCH (09:34)
[2019-10-09] MEDS: MUPIROCIN TOP SCH ×3 (09:34→20:16)
[2019-10-09] MEDS: Fluticasone Propionate Nasal Spray 16 GM Bottle NASBOTH SCH (09:34)
[2019-10-09] MEDS: [UNRECOGNIZED DRUG - OTHER] INH SCH (09:34)
[2019-10-09] MEDS: Tamsulosin 0.4 MG Cap.ER PO SCH (09:35)
[2019-10-09] MEDS: METOPROLOL 100 MG PO SCH (09:35)
[2019-10-09] MEDS: XTANDI 40 MG PO SCH (09:35)
[2019-10-09] MEDS: IPRATROPIUM 0.03% NAS SCH ×3 (09:36→20:15)
[2019-10-09] MEDS: Memantine 10 MG Tab PO SCH ×2 (09:37→20:15)
[2019-10-09] MEDS: Warfarin 5 MG Tab PO SCH (20:14)
[2019-10-09] MEDS: atorvaSTATin 10 MG Tab PO SCH (20:14)
[2019-10-09] MEDS: Donepezil 10 MG Tab PO SCH (20:15)
[2019-10-10 06:11] VITALS: PULSE 60
[2019-10-10] MEDS: XTANDI 40 MG PO SCH (09:25)
[2019-10-10] MEDS: Cholestyramine/Aspartame Powder 4 GM Packet PO SCH (09:25)
[2019-10-10] MEDS: METOPROLOL 100 MG PO SCH (09:26)
[2019-10-10] MEDS: Tamsulosin 0.4 MG Cap.ER PO SCH (09:26)
[2019-10-10] MEDS: MUPIROCIN TOP SCH ×3 (09:26→20:36)
[2019-10-10] MEDS: Fluticasone Propionate Nasal Spray 16 GM Bottle NASBOTH SCH (09:26)
[2019-10-10] MEDS: IPRATROPIUM 0.03% NAS SCH ×3 (09:26→20:36)
[2019-10-10] MEDS: [UNRECOGNIZED DRUG - OTHER] INH SCH (09:27)
[2019-10-10] MEDS: FLUTICASONE INH SCH (09:27)
[2019-10-10] MEDS: Memantine 10 MG Tab PO SCH ×2 (09:27→20:35)
[2019-10-10] MEDS ORDERED: Mineral Oil/Petrolatum/Phenylephrine/Shark Liver Oil Oint 57 GM Tube RECTAL PRN ×2 (15:05→16:23)
[2019-10-10] MEDS: atorvaSTATin 10 MG Tab PO SCH (20:35)
[2019-10-10] MEDS: Donepezil 10 MG Tab PO SCH (20:35)
[2019-10-10] MEDS: Warfarin 5 MG Tab PO SCH (20:35)
[2019-10-11] MEDS: Cholestyramine/Aspartame Powder 4 GM Packet PO SCH (08:22)
[2019-10-11] MEDS: Tamsulosin 0.4 MG Cap.ER PO SCH (08:23)
[2019-10-11] MEDS: IPRATROPIUM 0.03% NAS SCH ×3 (08:23→20:28)
[2019-10-11] MEDS: XTANDI 40 MG PO SCH (08:23)
[2019-10-11] MEDS: Fluticasone Propionate Nasal Spray 16 GM Bottle NASBOTH SCH (08:24)
[2019-10-11] MEDS: METOPROLOL 100 MG PO SCH (08:24)
[2019-10-11] MEDS: Memantine 10 MG Tab PO SCH ×2 (08:25→20:28)
[2019-10-11] MEDS: MUPIROCIN TOP SCH ×3 (08:25→20:28)
[2019-10-11] MEDS: FLUTICASONE INH SCH ×2 (08:26→15:29)
[2019-10-11] MEDS: [UNRECOGNIZED DRUG - OTHER] INH SCH ×2 (08:26→15:29)
--- NOTE | 2019-10-11 13:29 | PCM.DCSUM1 ---
Discharge Summary - Hospital Course Brief History: Mr. Rincon is an 79 yo male who was admitted to swing bed while awaiting availability of a care center bed. - Discharge Data Discharge Date: 10/11/19 Discharge Disposition: DC/Tfer to SNF 03 Condition: Good - Referral to Home Health Primary Care Physician: Vito Christiansen MD - Discharge Diagnosis/Problem(s) (1) Weakness SNOMED Code(s): 83833993 ICD Code: R53.1 - WEAKNESS Status: Acute Current Visit: No (2) Alzheimer's dementia, late onset SNOMED Code(s): 247592597 ICD Code: G30.1 - ALZHEIMER'S DISEASE WITH LATE ONSET; F02.80 - DEMENTIA IN OTH DISEASES CLASSD ELSWHR W/O BEHAVRL DISTURB Status: Chronic Current Visit : No Qualifiers: Dementia behavioral disturbance: without behavioral disturbance Qualified Code(s): G30.1 - Alzheimer's disease with late onset; F02.80 - Dementia in other diseases classified elsewhere without behavioral disturbance (3) Atrial fibrillation SNOMED Code(s): 03401804 ICD Code: I48.91 - UNSPECIFIED ATRIAL FIBRILLATION Status: Chronic Priority: Medium Current Visit: No Qualifiers: Atrial fibrillation type: paroxysmal Qualified Code(s): I48.0 - Paroxysmal atrial fibrillation (4) Diarrhea SNOMED Code(s): 24516737 ICD Code: R19.7 - DIARRHEA, UNSPECIFIED Status: Chronic Priority: High Current Visit: No Qualifiers: Diarrhea type: unspecified type Qualified Code(s): R19.7 - Diarrhea, unspecified (5) Hypertension SNOMED Code(s): 91699258 ICD Code: I10 - ESSENTIAL (PRIMARY) HYPERTENSION Status: Chronic Current Visit: No Qualifiers: Hypertension type: essential hypertension Qualified Code(s): I10 - Essential (primary) hypertension (6) Prostate cancer SNOMED Code(s): 877044079 ICD Code: C61 - MALIGNANT NEOPLASM OF PROSTATE Status: Chronic Priority: Medium Current Visit: No - Patient Summary/Data Operative Procedure(s) Performed: none Complications: none Consults: none Labs Pending at D/C: none Recommended Follow-up Testing/Procedures: none Planned Operative Procedure(s) after DC: none Hospital Course: The patient was admitted and all of his home medications were continued. His hospital stay was uncomplicated. He will be discharged to [facility] on 10/12/2019. - Discharge Plan Home Medications: Home Meds Albuterol [Proventil HFA] 2 puff INH Q4H PRN 09/13/19 [History] Donepezil HCl [Aricept] 10 mg PO BEDTIME 09/13/19 [History] Enzalutamide [Xtandi] 160 mg PO DAILY 09/13/19 [History] Finasteride 5 mg PO DAILY 09/13/19 [History] Fluticasone Propionate [Flonase] 1 spray NASBOTH DAILY 09/13/19 [History] Fluticasone/Vilanterol [Breo Ellipta 100-25 MCG Inhalation Kit] 1 puff PO DAILY 09/13/19 [History] Ipratropium [place] 2 sprays NASBOTH TID 09/13/19 [History] Memantine HCl 10 mg PO BID 09/13/19 [History] Metoprolol Succinate [Toprol Xl] 50 mg PO DAILY 09/13/19 [History] Tamsulosin HCl [Flomax] 0.8 mg PO DAILY 09/13/19 [History] Warfarin [Coumadin] 5 mg PO ASDIRECTED 09/13/19 [History] atorvaSTATin [Lipitor] 10 mg PO BEDTIME 09/13/19 [History] Mupirocin Oint [Bactroban Oint] 1 applic TP BID 09/28/19 [History] - Discharge Summary/Plan Comment DC Time >30 min.: No - General Info Date of Service: 10/11/19 Subjective Update: 79 yo male admitted for generalized weakness in the setting of dementia while awaiting transition to [facility]. He denies any concerns today. He states he has been sleeping well. He will be going to [place] for a dermatology appointment today to have his sutures removed. ROS is otherwise negative. - Review of Systems General: Reports: No Symptoms HEENT: Reports: No Symptoms Pulmonary: Reports: No Symptoms Cardiovascular: Reports: No Symptoms Gastrointestinal: Reports: No Symptoms Genitourinary: Reports: No Symptoms Musculoskeletal: Reports: No Symptoms Skin: Reports: No Symptoms Neurological: Reports: No Symptoms - Patient Data Vitals - Most Recent: Last Vital Signs Temp 36.0 C L 10/11/19 04:25 Pulse 60 10/11/19 04:25 Resp 18 10/11/19 04:25 BP 98/48 L 10/11/19 04:25 Pulse Ox 98 10/11/19 04:25 Weight - Most Recent: 68.039 kg I&O - Last 24 hours: Intake & Output 10/10/19 10/11/19 10/11/19 22:59 06:59 14:59 Intake Total 240 180 Balance 240 180 Lab Results - Last 24 hrs: Laboratory Results - last 24 hr 10/11/19 Range/Units 06:36 PT 17.8 H (10.0-12.8) SEC INR 1.6 L (2.0-3.5) Med Orders - Current: Current Medications Albuterol (Ventolin Hfa) 2 gm INH Q4H PRN PRN Reason: Wheezing Atorvastatin Calcium (Lipitor) 10 mg PO BEDTIME [facility] Last Admin: 10/10/19 20:35 Dose: 10 mg Cholestyramine Resin (Prevalite Packet) 4 gm PO WITHBREAKFAST [facility] Last Admin: 10/11/19 08:22 Dose: 4 gm Donepezil HCl (Aricept) 10 mg PO BEDTIME [facility] Last Admin: 10/10/19 20:35 Dose: 10 mg Finasteride (Proscar) 5 mg PO DAILY [facility] Last Admin: 10/11/19 08:24 Dose: 5 mg Fluticasone Propionate (Flonase) 1 gm NASBOTH DAILY [facility] Last Admin: 10/11/19 08:24 Dose: 1 spray Memantine (Namenda) 10 mg PO BID [facility] Last Admin: 10/11/19 08:25 Dose: 10 mg Mupirocin (Bactroban Oint) 1 gm TOP TID [facility] Last Admin: 10/11/19 08:25 Dose: 1 applic Fluticasone./Vilanterol (Own Supply) 1 puff INH DAILY [facility] Last Admin: 10/11/19 08:26 Dose: Not Given Ipratropium 0.03% (Nasal) 1 each HARDEEP TID [facility] Last Admin: 10/11/19 08:23 Dose: 1 each Xtandi (Enzalutamide () 40mg) 4 each PO DAILY [facility] Last Admin: 10/11/19 08:23 Dose: 4 each Metoprolol Er 100mg (Tabs (Own Supply)) 0.5 each PO DAILY [facility] Last Admin: 10/11/19 08:24 Dose: 0.5 each Phenyleph/Shark Oil/Min Oil/Petrol (Preparation H Oint) 0 gm RECTAL DAILY PRN PRN Reason: Hemorrhoids Last Admin: 10/10/19 20:34 Dose: 1 applic Tamsulosin HCl (Flomax) 0.8 mg PO DAILY [facility] Last Admin: 10/11/19 08:23 Dose: 0.8 mg Warfarin Sodium (Coumadin) 7.5 mg PO DAILY@1999 [facility] Last Admin: 10/10/19 20:35 Dose: 7.5 mg Discontinued Medications (Atorvastatin [ Lipitor] 10 Mg Tab)* Pt Own Med* 0 each PO BEDTIME [facility] Last Admin: 10/05/19 19:51 Dose: 1 each (Donepezil Hcl [ Aricept] 10 Mg Tab)* Pt Own Med* 0 each PO BEDTIME [facility] Last Admin: 10/05/19 19:50 Dose: 1 each (Finasteride [ Finasteride] 5 Mg)* Pt Own Med* 0 each PO DAILY [facility] Last Admin: 10/06/19 12:23 Dose: 1 each (Ipratropium [place] Nasal Solution 0.03 %)*Pt Own Med* 0 each NASBOTH TID [facility] Last Admin: 10/06/19 12:28 Dose: Not Given (Memantine Hcl [ Memantine Hcl] 10 Mg Tab)*Pt Own Med* 0 each PO BID [facility] Last Admin: 10/06/19 12:28 Dose: 1 each (Tamsulosin Hcl [ Flomax] 0.4 Mg Caps) *Pt Own Med* 0 each PO DAILY [facility] Last Admin: 10/06/19 12:22 Dose: 1 each (Warfarin [Coumadin] 5 Mg Tabs)*Pt Own Med* 0 each PO DAILY@1999 [facility] Last Admin: 10/05/19 19:52 Dose: 1 each Phenyleph/Shark Oil/Min Oil/Petrol (Preparation H Oint) 0 gm RECTAL ASDIRECTED PRN PRN Reason: Hemorrhoids - Exam General: Reports: Alert, Cooperative, No Acute Distress HEENT: Reports: Mucous Membr. Moist/[place] Neck: Reports: Supple, Trachea Midline, No Thyromegaly. Denies: Lymphadenopathy Lungs: Reports: Clear to Auscultation, Normal Respiratory Effort Cardiovascular: Reports: Regular Rate, Regular Rhythm, No Murmurs GI/Abdominal Exam: Normal Bowel Sounds, Soft, Non-Tender, No Organomegaly, No Distention, No Mass Extremities: Non-Tender, No Pedal Edema, Normal Capillary Refill Skin: Reports: Warm, Dry, Intact *Q Meaningful Use (DIS) - VTE *Q VTE Anticoagulation Contraindications: Med/TX Not Indicated/Need
[2019-10-11] MEDS: Warfarin 5 MG Tab PO SCH (20:27)
[2019-10-11] MEDS: atorvaSTATin 10 MG Tab PO SCH (20:27)
[2019-10-11] MEDS: Donepezil 10 MG Tab PO SCH (20:28)
[2019-10-12 05:26] VITALS: BP 110/38
[2019-10-12] MEDS: Tamsulosin 0.4 MG Cap.ER PO SCH (08:22)
[2019-10-12] MEDS: IPRATROPIUM 0.03% NAS SCH (08:22)
[2019-10-12] MEDS: Cholestyramine/Aspartame Powder 4 GM Packet PO SCH (08:22)
[2019-10-12] MEDS: MUPIROCIN TOP SCH (08:23)
[2019-10-12] MEDS: [UNRECOGNIZED DRUG - OTHER] INH SCH (08:23)
[2019-10-12] MEDS: Fluticasone Propionate Nasal Spray 16 GM Bottle NASBOTH SCH (08:23)
[2019-10-12] MEDS: FLUTICASONE INH SCH (08:23)
[2019-10-12] MEDS: XTANDI 40 MG PO SCH (08:24)
[2019-10-12] MEDS: Memantine 10 MG Tab PO SCH (08:24)
[2019-10-12] MEDS: METOPROLOL 100 MG PO SCH (08:25)
== END 2019-10-12 11:30 | DRG 948 ==
LOC: VM.MS 13:25
PROVIDERS: ADMIT Family Medicine; ATTEND Family Medicine
DX: R53.1 Weakness (principal); G30.1 Alzheimer's disease with late onset; F02.80 Dementia in other diseases classified elsewhere, unspecified severity, without behavioral disturbance, psychotic disturbance, mood disturbance, and anxiety; Z66 Do not resuscitate; I48.0 Paroxysmal atrial fibrillation; R19.7 Diarrhea, unspecified; C61 Malignant neoplasm of prostate; I10 Essential (primary) hypertension; E78.00 Pure hypercholesterolemia, unspecified; F17.200 Nicotine dependence, unspecified, uncomplicated; Z88.8 Allergy status to other drugs, medicaments and biological substances; Z79.01 Long term (current) use of anticoagulants; Z79.899 Other long term (current) drug therapy; Z85.828 Personal history of other malignant neoplasm of skin; Z95.0 Presence of cardiac pacemaker
CPT/HCPCS: 36415; 85610; A9270-GY

== ENCOUNTER 2021-02-17 22:53 | Inpatient (IN) | payer MEDICARE, BC ==
[2021-02-17] MEDS ORDERED: Sodium Chloride 0.9% 10 ML Syringe FLUSH PRN (23:43)
[2021-02-17] MEDS ORDERED: Sodium Chloride 0.9% 1,000 ML IV ONE (23:44)
--- NOTE | 2021-02-17 23:49 | EDM.PDOC ---
ED HPI GENERAL MEDICAL PROBLEM - General Stated Complaint: ER VISIT Time Seen by Provider: 02/17/21 23:37 Source of Information: Reports: Family - History of Present Illness INITIAL COMMENTS - FREE TEXT/NARRATIVE: Don is an 80 y/o male who is brought to the ER tonight with weakness. He could not get up from the chair and his could not get up up either. She reports that he has been much weaker the last few days. He did eat and drink today. He has also have a loose cough, but cannot seem to cough up the sputum. No fever. - Related Data Allergies Allergy/AdvReac Type Severity Reaction Status Date / Time lisinopril AdvReac Cough Verified 10/04/19 10:36 Home Meds: Home Meds Albuterol [Proventil HFA] 2 puff INH Q4H PRN 09/13/19 [History] Donepezil HCl [Aricept] 10 mg PO BEDTIME 09/13/19 [History] Enzalutamide [Xtandi] 160 mg PO DAILY 09/13/19 [History] Finasteride 5 mg PO DAILY 09/13/19 [History] Fluticasone Propionate [Flonase] 1 spray NASBOTH DAILY 09/13/19 [History] Fluticasone/Vilanterol [Breo Ellipta 100-25 MCG Inhalation Kit] 1 puff PO DAILY 09/13/19 [History] Ipratropium Kiana 2 sprays NASBOTH TID 09/13/19 [History] Memantine HCl 10 mg PO BID 09/13/19 [History] Metoprolol Succinate [Toprol Xl] 50 mg PO DAILY 09/13/19 [History] Tamsulosin HCl [Flomax] 0.8 mg PO DAILY 09/13/19 [History] Warfarin [Coumadin] 5 mg PO ASDIRECTED 09/13/19 [History] atorvaSTATin [Lipitor] 10 mg PO BEDTIME 09/13/19 [History] Mupirocin Oint [Bactroban Oint] 1 applic TP BID 09/28/19 [History] Past Medical History HEENT History: Reports: None Cardiovascular History: Reports: Afib, High Cholesterol, Hypertension, Other (See Below) 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 - Past Surgical History Cardiovascular Surgical History: Reports: Pacer, Other (See Below) Other Cardiovascular Surgeries/Procedures: dual chamber pacemaker GI Surgical History: Reports: Colonoscopy, EGD Dermatological Surgical History: Reports: Skin Biopsy Social & Family History - Family History Cardiac: Reports: CAD Oncologic: Reports: Lung - Caffeine Use Caffeine Use: Reports: None - Living Situation & Occupation Living situation: Reports: , with Significant Other Occupation: Retired Review of Systems - Review of Systems Review Of Systems: See Below Constitutional: Reports: Weakness Eyes: Reports: No Symptoms Ears: Reports: No Symptoms Nose: Reports: Congestion Mouth/Throat: Reports: No Symptoms Respiratory: Reports: Cough (loose) Cardiovascular: Reports: No Symptoms GI/Abdominal: Reports: No Symptoms Genitourinary: Reports: No Symptoms Musculoskeletal: Reports: No Symptoms Skin: Reports: Pallor Neurological: Reports: No Symptoms Psychiatric: Reports: No Symptoms ED EXAM, GENERAL - Physical Exam Exam: See Below General Appearance: Alert, WD/WN (Elderly male, appears to not feel well.) Eye Exam: Bilateral Eye: PERRL Ears: Normal External Exam, Normal Canal, Hearing Grossly Normal, Normal TMs Nose: Normal Inspection, Normal Mucosa Throat/Mouth: Normal Inspection, Normal Lips, Normal Oropharynx, Normal Voice Head: Atraumatic, Normocephalic Neck: Normal Inspection Respiratory/Chest: No Respiratory Distress, Lungs Clear, Chest Non-Tender Cardiovascular: Normal Peripheral Pulses, Regular Rate, Rhythm, No Murmur GI/Abdominal: Normal Bowel Sounds, Soft, Non-Tender (Male) Exam: Deferred Rectal (Males) Exam: Deferred Back Exam: Normal Inspection Extremities: Pedal Edema (2+ pedal edema to bilateral feet/ankles) Neurological: Alert, Oriented, CN II-XII Intact Skin Exam: Warm, Dry, Pallor Lymphatic: No Adenopathy #1 Interpretation EKG Date: 02/17/21 Time: 23:32 Rhythm: Other (Atrial Paced) Rate (Beats/Min): 66 EKG Interpretation Comments: Paced Course - Vital Signs Text/Narrative:: 8991 The patient was seen by the [facility]. Labs, EKG, adn CXR ordered. NS 1 liter IV ordered. 0030 Labs reviewed, CBC: WBC=19.1,Nnc=698; Lactic Acid=3.1; CMP Gap=17.4, Wvgvrjn=816. Ceftriaxone 1gm IVP ordered since Lactic Acid elevated. [address] Fany Perales and will plan to admit this patient to acute care. Cannot exclude pneumonia as cause of infection. Will continue IV fluids. Dr Ken Perales to write orders and assume care of the patient. - Orders/Labs/Meds Orders: Active Orders 24 hr Category Date Time Status EKG Documentation Completion [RC] STAT Care 02/17/21 23:43 Ordered Chest 1V Frontal [CR] Stat Exams 02/17/21 23:43 Ordered CULTURE BLOOD [BC] Stat Lab 02/17/21 23:44 Ordered CULTURE BLOOD [BC] Stat Lab 02/17/21 23:44 Ordered UA RFX DARINEL AND CULT IF INDIC [URIN] Stat Lab 02/17/21 23:43 Ordered Sodium Chloride 0.9% @ Wide Open(1,000ml) Med 02/17/21 23:44 Ordered Sodium Chloride 0.9% [Normal Saline] 1,000 ml IV ONETIME Sodium Chloride 0.9% [Saline Flush] Med 02/17/21 23:43 Ordered 10 ml FLUSH ASDIRECTED PRN Blood Culture x2 Reflex Set [OM.PC] Stat Oth 02/17/21 23:43 Ordered Saline Lock Insert [OM.PC] Stat Oth 02/17/21 23:43 Ordered Medication Orders Sodium Chloride (Normal Saline) 1,000 mls @ 999 mls/hr IV ONETIME ONE Stop: 02/18/21 00:44 Sodium Chloride (Sodium Chloride 0.9% 10 Ml Syringe) 10 ml FLUSH ASDIRECTED PRN PRN Reason: Keep Vein Open Labs: Laboratory Tests 02/17/21 02/17/21 02/17/21 Range/Units 23:42 23:45 23:45 WBC 19.1 H (4.0-10.0) x10^3/uL RBC 3.73 L (4.5-6.0) x10^6/uL Hgb 12.4 L (14.0-18.0) g/dL Hct 37.7 L (40.0-52.0) % MCV 101.1 H (78.0-93.0) fL MCH 33.2 H (26.0-32.0) pg MCHC 32.9 (32.0-36.0) g/dL RDW Coeff of Chivo 13.9 (10.0-15.0) % Plt Count 104 L (130-400) x10^3/uL Add Manual Diff Yes Neutrophils % (Manual) 73 (50-80) % Band Neutrophils % 6 (0-6) % Lymphocytes % (Manual) 5 L (25-50) % Monocytes % (Manual) 13 H (2-11) % Eosinophils % (Manual) 1 (0-4) % Metamyelocytes % 2 H (0) % Hypersegmented Neuts Few H Platelet Estimate Decreased L PT 26.9 H (9.9-12.5) SEC INR 2.4 (2.0-3.5) APTT 35.2 H (25.6-32.8) SEC Sodium (136-145) mmol/L Potassium (3.5-5.1) mmol/L Chloride (98-107) mmol/L Carbon Dioxide (21-32) mmol/L Anion Gap (5-15) mmol/L BUN (7-18) mg/dL Creatinine (0.70-1.30) mg/dL Est Cr Clr Drug Dosing Estimated GFR (MDRD) Glucose (70-99) mg/dL Lactic Acid (0.4-2.0) mmol/L Calcium (8.5-10.1) mg/dL Corrected Calcium (8.5-10.1) mg/dL Magnesium (1.8-2.4) mg/dL Total Bilirubin (0.2-1.0) mg/dL AST (15-37) U/L ALT (16-63) U/L Alkaline Phosphatase (46-116) U/L C-Reactive Protein (<=0.9) mg/dL Total Protein (6.4-8.2) g/dL Albumin (3.4-5.0) g/dL Globulin Albumin/Globulin Ratio SARS CoV-2 RNA Rapid YING Negative (NEGATIVE) 02/17/21 02/17/21 Range/Units 23:45 23:45 WBC (4.0-10.0) x10^3/uL RBC (4.5-6.0) x10^6/uL Hgb (14.0-18.0) g/dL Hct (40.0-52.0) % MCV (78.0-93.0) fL MCH (26.0-32.0) pg MCHC (32.0-36.0) g/dL RDW Coeff of Chivo (10.0-15.0) % Plt Count (130-400) x10^3/uL Add Manual Diff Neutrophils % (Manual) (50-80) % Band Neutrophils % (0-6) % Lymphocytes % (Manual) (25-50) % Monocytes % (Manual) (2-11) % Eosinophils % (Manual) (0-4) % Metamyelocytes % (0) % Hypersegmented Neuts Platelet Estimate PT (9.9-12.5) SEC INR (2.0-3.5) APTT (25.6-32.8) SEC Sodium 139 (136-145) mmol/L Potassium 4.4 (3.5-5.1) mmol/L Chloride 105 (98-107) mmol/L Carbon Dioxide 21 (21-32) mmol/L Anion Gap 17.4 H (5-15) mmol/L BUN 14 (7-18) mg/dL Creatinine 1.2 (0.70-1.30) mg/dL Est Cr Clr Drug Dosing TNP Estimated GFR (MDRD) 58 Glucose 154 H (70-99) mg/dL Lactic Acid 3.1 H* (0.4-2.0) mmol/L Calcium 7.8 L (8.5-10.1) mg/dL Corrected Calcium 8.5 (8.5-10.1) mg/dL Magnesium 2.3 (1.8-2.4) mg/dL Total Bilirubin 0.9 (0.2-1.0) mg/dL AST 19 (15-37) U/L ALT 20 (16-63) U/L Alkaline Phosphatase 80 (46-116) U/L C-Reactive Protein 1.5 H (<=0.9) mg/dL Total Protein 7.1 (6.4-8.2) g/dL Albumin 3.1 L (3.4-5.0) g/dL Globulin 4.0 Albumin/Globulin Ratio 0.78 SARS CoV-2 RNA Rapid YING (NEGATIVE) Meds: Medications Generic Name Dose Route Start Last Admin Trade Name Freq PRN Reason Stop Dose Admin Sodium Chloride 1,000 mls @ 999 mls/hr 02/17/21 23:44 Normal Saline IV 02/18/21 00:44 ONETIME ONE Sodium Chloride 10 ml 02/17/21 23:43 Sodium Chloride 0.9% 10 Ml Syringe FLUSH ASDIRECTED PRN Keep Vein Open Discontinued Medications Generic Name Dose Route Start Last Admin Trade Name Freq PRN Reason Stop Dose Admin Ceftriaxone Sodium 1 gm 02/18/21 00:27 Ceftriaxone 1 Gm Vial IVPUSH 02/18/21 00:28 STAT ONE - Radiology Interpretation Free Text/Narrative:: XR Chest 1V=normal exam (See final report) Departure - Departure Time of Disposition: 00:56 Disposition: Admitted As Inpatient 64 Condition: Good Clinical Impression: Elevated lactic acid level, Weakness, Cough - Discharge Information Additional Instructions: -Admit to Acute Care to Dr Fany Perales - Problem List & Annotations (1) Elevated lactic acid level SNOMED Code(s): 4683909 Code(s): R79.89 - OTHER SPECIFIED ABNORMAL FINDINGS OF BLOOD CHEMISTRY Status: Acute Annotation/Comment:: -Lactic acid=3.1, Given Ceftriaxone 1gm IVP in the ER. -Blood Cx pending -Continue IV fluids -Repeat labs in the AM (2) Weakness SNOMED Code(s): 90575842 Code(s): R53.1 - WEAKNESS Status: Acute Annotation/Comment:: -Will monitor. Possible related to hx of prostate and bone cancer or the infection. (3) Dehydration SNOMED Code(s): 29288609 Code(s): E86.0 - DEHYDRATION Status: Resolved Priority: High Annotation/Comment:: -Will continue IV fluids and repeat labs. (4) Alzheimer's dementia, late onset SNOMED Code(s): 40892424 Code(s): G30.1 - ALZHEIMER'S DISEASE WITH LATE ONSET; F02.80 - DEMENTIA IN OTH DISEASES CLASSD ELSWHR W/O BEHAVRL DISTURB Status: Chronic (5) Atrial fibrillation SNOMED Code(s): 47441767 Code(s): I48.91 - UNSPECIFIED ATRIAL FIBRILLATION Status: Chronic Priority: Medium Annotation/Comment:: -EKG showed paced rhythm in the ER. -Code State=3. -Currently on Coumadin. Qualifiers: Atrial fibrillation type: paroxysmal Qualified Code(s): I48.0 - Paroxysmal atrial fibrillation (6) Dementia SNOMED Code(s): 01514590 Code(s): F03.90 - UNSPECIFIED DEMENTIA WITHOUT BEHAVIORAL DISTURBANCE Status: Chronic Priority: Medium Annotation/Comment:: -On Aricept, will continue on admission. Qualifiers: Dementia type: Alzheimer's disease (7) Hypertension SNOMED Code(s): 40187427 Code(s): I10 - ESSENTIAL (PRIMARY) HYPERTENSION Status: Chronic Annotation/Comment:: BP controlled on admission. Qualifiers: Hypertension type: essential hypertension Qualified Code(s): I10 - Essential (primary) hypertension - My Orders Last 24 Hours: My Active Orders 02/17/21 23:43 EKG Documentation Completion [RC] STAT Chest 1V Frontal [CR] Stat UA RFX DARINEL AND CULT IF INDIC [URIN] Stat Sodium Chloride 0.9% [Saline Flush] 10 ml FLUSH ASDIRECTED PRN Blood Culture x2 Reflex Set [OM.PC] Stat Saline Lock Insert [OM.PC] Stat 02/17/21 23:44 CULTURE BLOOD [BC] Stat CULTURE BLOOD [BC] Stat Sodium Chloride 0.9% @ Wide Open(1,000ml) Sodium Chloride 0.9% [Normal Saline] 1,000 ml IV ONETIME - Assessment/Plan Admission H&P: Please use this note as an admission H&P Last 24 Hours: My Active Orders 02/17/21 23:43 EKG Documentation Completion [RC] STAT Chest 1V Frontal [CR] Stat UA RFX DARINEL AND CULT IF INDIC [URIN] Stat Sodium Chloride 0.9% [Saline Flush] 10 ml FLUSH ASDIRECTED PRN Blood Culture x2 Reflex Set [OM.PC] Stat Saline Lock Insert [OM.PC] Stat 02/17/21 23:44 CULTURE BLOOD [BC] Stat CULTURE BLOOD [BC] Stat Sodium Chloride 0.9% @ Wide Open(1,000ml) Sodium Chloride 0.9% [Normal Saline] 1,000 ml IV ONETIME Assessment:: As above Plan: -Dr Fany Perales to see pt in AM for admission. -See ordered per AJAY musa for admit
[2021-02-18 00:16] LABS: PTT,PARTIAL THROMBOPLSTIN TIME 35.2 SEC (25.6-32.8)
[2021-02-18 00:19] LABS: CHLORIDE,CL 105 mmol/L (98-107); SODIUM,NA 139 mmol/L (136-145)
[2021-02-18 00:21] LABS: ANION GAP 17.4 mmol/L (5-15)
[2021-02-18] MEDS ORDERED: cefTRIAXone 1 GM Vial IVPUSH ONE (00:27)
[2021-02-18] MEDS ORDERED: Ondansetron 4 MG Tab.DIS PO PRN (01:24)
[2021-02-18] MEDS ORDERED: Ondansetron 4 MG/2 ML SDV IV PRN (01:24)
[2021-02-18] MEDS ORDERED: Sodium Chloride 0.9% 1,000 ML IV SCH (02:30)
[2021-02-18] MEDS ORDERED: Albuterol HFA 18 Gm Inhaler INH PRN (07:36)
[2021-02-18] MEDS ORDERED: Triamcinolone Acetonide 0.1% Crm 15 GM Tube TOP PRN (07:40)
[2021-02-18] MEDS ORDERED: Formoterol/Mometasone 200-5 MCG 8.8 GM Inhaler IH SCH (07:45)
[2021-02-18 07:52] LABS: CHLORIDE,CL 110 mmol/L (98-107); SODIUM,NA 142 mmol/L (136-145)
[2021-02-18 07:55] LABS: ANION GAP 14.2 mmol/L (5-15)
[2021-02-18] MEDS: Psyllium Husk Powder Sugar Free 5.85 GM Packet PO SCH (08:01)
[2021-02-18] MEDS: Phytonadione 100 MCG Tab PO SCH (08:01)
[2021-02-18] MEDS: Loperamide 2 MG Cap PO SCH (08:02)
[2021-02-18] MEDS: Memantine 10 MG Tab PO SCH ×2 (08:02→19:50)
[2021-02-18] MEDS: Tamsulosin 0.4 MG Cap.ER PO SCH (08:02)
[2021-02-18] MEDS: Finasteride 5 MG Tab PO SCH (08:02)
[2021-02-18] MEDS: Azithromycin 250 MG Tab PO SCH (08:02)
[2021-02-18] MEDS: Fluticasone Propionate Nasal Spray 9.9 ML BOTTLE NASBOTH SCH (08:02)
--- NOTE | 2021-02-18 09:24 | CR ---
[id number] RAD/RAD Chest Portable EXAM: RAD Chest Portable INDICATION: WEAKNESS COMPARISON: September 2019. DISCUSSION/IMPRESSION: Left chest wall cardiac conduction device in place. Apparent enlargement of the cardiomediastinal silhouette compared to the prior examination is consistent with sequela of portable technique. Lungs are clear. No pleural effusion or pneumothorax. Brennan Michael MD 02/18/21 0923 Thank you for allowing us to participate in the care of your patient.
[2021-02-18] MEDS: Metoprolol Succinate 50 MG Tab.ER PO SCH (10:34)
--- NOTE | 2021-02-18 11:46 | PCM.SN.2 ---
- Free Text/Narrative Note: Stop fluids, labs improving and patient eating and drinking this AM. Hold Metoprolol due to lower blood pressures. Dr. Urban to assume care as she is PCP. Continue ABX with rocephin and add Zithromax for CAP.
[2021-02-18] MEDS: Calcium Carbonate/Vitamin D3 1250 MG-5 MCG Tab PO SCH ×2 (11:50→19:50)
[2021-02-18] MEDS: RIVASTIGMINE TOP SCH (11:50)
[2021-02-18] MEDS ORDERED: Albuterol/Ipratropium 3.0-0.5 MG/3 ML Neb Soln NEB PRN (11:51)
[2021-02-18] MEDS: Fluticasone-Salmeterol 113-14 MCG Powder Inhalant INH SCH ×2 (14:48→19:51)
--- NOTE | 2021-02-18 18:32 | HP ---
CHIEF COMPLAINT: Weakness and cough. HISTORY OF PRESENT ILLNESS: This is an 80-year-old male who was brought in by his last evening for the above listed complaints. He says he has been afebrile. He feels like he was eating and drinking okay. He does not recall any history of pneumonia, although does have a history of Alzheimer's. He had previously been staying up at the [facility] when he was having more issues with diarrhea, but it sounds like after switching Aricept to an Exelon patch, he has done better. He also has metastatic prostate cancer and is on treatments for that. In fact, he is due for Lupron this week. Patient is not having any new back pain. He is not short of breath. He has not been requiring any oxygen, but his white count was up to 19,000 on arrival. He did receive IV Rocephin and IV fluids overnight. He has been voiding okay in the urinal. ALLERGIES: Include lisinopril. MEDICATION LIST: Reviewed. He has Atrovent nasal spray. He uses Locoid ointment to his penis, Exelon patch 9.5 daily, Namenda 10 mg twice daily, Remeron 15 at bedtime, Proscar 5 mg daily, Toprol 50 mg daily, Lipitor 10 mg daily, Breo inhaler, warfarin 7.5 mg 4 days a week and 5 mg the other 3 days out of the week, Flonase nasal spray, Xtandi prostate cancer medication, Flomax 2 capsules daily, vitamin K 100 mcg daily, calcium and vitamin D, Metamucil daily, Imodium 2 mg daily, and albuterol inhaler as needed. PAST MEDICAL HISTORY: Includes prostate cancer with bony metastasis, chronic atrial fibrillation, cervical dystonia, essential hypertension, history of skin cancer, history of peptic ulcer disease, impaired fasting glucose, hyperlipidemia, asthma with history of smoking, quit in 2019, Alzheimer disease late onset without behavioral disturbance, and BPH. PAST SURGICAL HISTORY: The patient has had a vasectomy, endoscopy, skin biopsy, Mohs surgery, hernia repair, colonoscopy, and pacemaker insertion. FAMILY HISTORY: Both parents are . His father had a heart attack. Mother had lung cancer. The patient is , had moved to the [facility] in 2019 due to progressive dementia, but he is now back at home with his and doing okay. REVIEW OF SYSTEMS: General: The patient is not aware of any weight changes. He denies any fever or chills. HEENT: He denies any trouble swallowing or choking on food. No sore throat. Cardiac: No chest pain, no palpitations. Respiratory: He has had a cough but has not been short of breath. He has not noticed any wheezing. Abdomen: No diarrhea yet while in the hospital. He is not having any pain in his stomach. : No burning with urination. No trouble emptying his bladder. Musculoskeletal: He denies any new aches or pains. Otherwise, all systems reviewed and found to be negative unless otherwise stated. PHYSICAL EXAMINATION: Vital Signs: He has a temperature of 96.9, pulse 60, blood pressure 110/33, respiratory rate 16, and O2 of 95% on room air. General: He is in no acute distress. Heart: Regularly irregular. Lungs: Lung sounds are clear to auscultation on the left, but there is some decreased lung sounds with crackles on the right. Abdomen: Has positive bowel sounds. Soft, nondistended, nontender. Extremities: Warm and dry, but does have 1+ ankle edema. Mental Status: He is alert, he is orientated that he is in the hospital. He did not have any behaviors. He asks appropriate questions and gave appropriate answers. LAB WORK: Does show white count of 14.6, hemoglobin 11.5, platelets 80 this morning, down from 104. He does have some chronic thrombocytopenia. Sodium this morning 142, potassium 4.2, chloride 110, bicarb 22, BUN 13, creatinine 1, glucose 109. UA done, 0-5 wbc's. He did have 5-10 rbc's. COVID negative. CRP also was 1.5 on admission. Lactic 3.1 but improved down to 2.0, magnesium 2.3. Chest x-ray, clear. No definite infiltrates on the left, but had some patchy infiltrates on the right. ASSESSMENT: 1. Community-acquired pneumonia. We will continue IV Rocephin and add oral Zithromax. 2. Sepsis with elevated lactic acid due to pneumonia with elevated white count and increased respiratory rate on admission, improved. He is not requiring oxygen. 3. Weakness, likely due to pneumonia. 4. Late onset Alzheimer disease without behavioral disturbance. 5. Atrial fibrillation, rate controlled. He has a pacemaker in place and is on Coumadin which is therapeutic. 6. Essential hypertension. 7. Chronic diarrhea. 8. Metastatic prostate cancer. 9. Mild malnutrition. 10. Asthma or Chronic Bronchitis 11.Thrombocytopenia, chronic. PLAN: The patient will continue on acute cares with IV antibiotics of Rocephin. We will add oral Zithromax. Blood clt is pending. We will get him up and working with therapies. He likely has some underlying chronic bronchitis potentially from his history of smoking. We will have his inhalers available, we will have albuterol available. Shyam p.r.n. for DVT prophylaxis. He is therapeutic on warfarin. We will continue his home medications, except some of the prostate cancer medications which are intermittently given. We will stop IV fluids this morning as he has been well hydrated over night. He is a code level 3. Dr. Urban to assume care. MKA: 02/18/2021 11:54:59 MODL: 02/18/2021 18:26:38 /[id number]
[2021-02-18] MEDS: atorvaSTATin 10 MG Tab PO SCH (19:50)
[2021-02-18] MEDS: cefTRIAXone 1 GM Vial IV SCH (19:50)
[2021-02-18] MEDS: Mirtazapine 15 MG Tab PO SCH (19:51)
[2021-02-18] MEDS ORDERED: Warfarin 2.5 MG Tab PO SCH (20:00)
[2021-02-19] MEDS: Fluticasone-Salmeterol 113-14 MCG Powder Inhalant INH SCH ×2 (06:21→19:54)
[2021-02-19 07:04] LABS: ANION GAP 14.3 mmol/L (5-15); CHLORIDE,CL 112 mmol/L (98-107); SODIUM,NA 141 mmol/L (136-145)
[2021-02-19] MEDS: Phytonadione 100 MCG Tab PO SCH (08:03)
[2021-02-19] MEDS: Psyllium Husk Powder Sugar Free 5.85 GM Packet PO SCH (08:03)
[2021-02-19] MEDS: Azithromycin 250 MG Tab PO SCH (08:03)
[2021-02-19] MEDS: Metoprolol Succinate 50 MG Tab.ER PO SCH (08:03)
[2021-02-19] MEDS: Tamsulosin 0.4 MG Cap.ER PO SCH (08:04)
[2021-02-19] MEDS: Loperamide 2 MG Cap PO SCH (08:04)
[2021-02-19] MEDS: Memantine 10 MG Tab PO SCH ×2 (08:04→19:52)
[2021-02-19] MEDS: Finasteride 5 MG Tab PO SCH (08:04)
[2021-02-19] MEDS: Calcium Carbonate/Vitamin D3 1250 MG-5 MCG Tab PO SCH ×2 (08:04→19:57)
[2021-02-19] MEDS: RIVASTIGMINE TOP SCH (08:04)
[2021-02-19] MEDS: Fluticasone Propionate Nasal Spray 9.9 ML BOTTLE NASBOTH SCH (08:05)
--- NOTE | 2021-02-19 08:28 | PCM.PN ---
- General Info Date of Service: 02/19/21 Subjective Update: 80 yo hospital day #2 admitted with pneumonia. He states he is not sure how he is doing. He did have some interrupted sleep last night due to sundowning and a large loose BM. He otherwise slept ok. He does not think he is short of breath and states he is not having any chest pain. He is not really coughing and has not had a fever. Nursing staff note he has b een eating well. - Review of Systems General: Reports: No Symptoms HEENT: Reports: No Symptoms Pulmonary: Reports: No Symptoms Cardiovascular: Reports: No Symptoms Gastrointestinal: Reports: No Symptoms Genitourinary: Reports: No Symptoms Musculoskeletal: Reports: No Symptoms Skin: Reports: No Symptoms Neurological: Reports: No Symptoms - Patient Data Vitals - Most Recent: Last Vital Signs Temp 36.9 C 02/19/21 06:00 Pulse 86 02/19/21 08:03 Resp 18 02/19/21 06:00 BP 127/64 02/19/21 08:03 Pulse Ox 98 02/19/21 06:00 Weight - Most Recent: 72.575 kg I&O - Last 24 Hours: Intake & Output 02/18/21 02/19/21 02/19/21 22:59 06:59 14:59 Intake Total 831 Output Total 300 Balance 531 Lab Results Last 24 Hours: Laboratory Results - last 24 hr 02/19/21 02/19/21 02/19/21 Range/Units 06:20 06:20 06:20 WBC 7.1 (4.0-10.0) x10^3/uL RBC 3.36 L (4.5-6.0) x10^6/uL Hgb 11.2 L (14.0-18.0) g/dL Hct 34.5 L (40.0-52.0) % MCV 102.7 H (78.0-93.0) fL MCH 33.3 H (26.0-32.0) pg MCHC 32.5 (32.0-36.0) g/dL RDW Coeff of [place] 14.1 (10.0-15.0) % Plt Count 76 L (130-400) x10^3/uL Add Manual Diff Yes Neutrophils % (Manual) 73 (50-80) % Band Neutrophils % 7 H (0-6) % Lymphocytes % (Manual) 12 L (25-50) % Monocytes % (Manual) 7 (2-11) % Metamyelocytes % 1 H (0) % Hypersegmented Neuts Few H Platelet Estimate Decreased L Macrocytosis 1+ slight H PT 19.6 H (9.9-12.5) SEC INR 1.8 L (2.0-3.5) Sodium 141 (136-145) mmol/L Potassium 4.3 (3.5-5.1) mmol/L Chloride 112 H (98-107) mmol/L Carbon Dioxide 19 L (21-32) mmol/L Anion Gap 14.3 (5-15) mmol/L BUN 11 (7-18) mg/dL Creatinine 1.0 (0.70-1.30) mg/dL Est Cr Clr Drug Dosing 58.46 mL/min Estimated GFR (MDRD) > 60 Glucose 97 (70-99) mg/dL Calcium 7.7 L (8.5-10.1) mg/dL Corrected Calcium 8.9 (8.5-10.1) mg/dL Total Bilirubin 0.5 (0.2-1.0) mg/dL AST 23 (15-37) U/L ALT 12 L (16-63) U/L Alkaline Phosphatase 79 (46-116) U/L Total Protein 5.7 L (6.4-8.2) g/dL Albumin 2.5 L (3.4-5.0) g/dL Globulin 3.2 Albumin/Globulin Ratio 0.78 Tre Results Last 24 Hours: Microbiology 02/17/21 23:45 Aerobic Blood Culture - Preliminary Blood - Venous NO GROWTH AFTER 1 DAY Anaerobic Blood Culture - Preliminary NO GROWTH AFTER 1 DAY 02/17/21 23:56 Aerobic Blood Culture - Preliminary Blood - Venous - Lab Draw NO GROWTH AFTER 1 DAY Anaerobic Blood Culture - Preliminary NO GROWTH AFTER 1 DAY Med Orders - Current: Current Medications Albuterol (Albuterol Hfa 18 Gm Inhaler) 0 gm INH Q4H PRN PRN Reason: Wheezing Albuterol/Ipratropium (Albuterol/Ipratropium 3.0-0.5 Mg/3 Ml Neb Soln) 3 ml NEB Q4HRRT PRN PRN Reason: Cough Atorvastatin Calcium (Atorvastatin 10 Mg Tab) 10 mg PO BEDTIME [facility]IE Last Admin: 02/18/21 19:50 Dose: 10 mg Documented by: Azithromycin (Azithromycin 250 Mg Tab) 500 mg PO DAILY [facility] Last Admin: 02/19/21 08:03 Dose: 500 mg Documented by: Calcium Carbonate (Calcium Carbonate/Vitamin D3 1250 Mg-5 Mcg Tab) 1 tab PO BID [facility] Last Admin: 02/19/21 08:04 Dose: 1 tab Documented by: Ceftriaxone Sodium (Ceftriaxone 1 Gm Vial) 1 gm IV BEDTIME [facility] Last Admin: 02/18/21 19:50 Dose: 1 gm Documented by: Finasteride (Finasteride 5 Mg Tab) 5 mg PO DAILY [facility] Last Admin: 02/19/21 08:04 Dose: 5 mg Documented by: Fluticasone Propionate (Fluticasone Propionate Nasal [place] 9.9 Ml Bottle) 0 ml NASBOTH DAILY [facility] Last Admin: 02/19/21 08:05 Dose: 1 spray Documented by: Loperamide HCl (Loperamide 2 Mg Cap) 2 mg PO DAILY [facility] Last Admin: 02/19/21 08:04 Dose: 2 mg Documented by: Memantine (Memantine 10 Mg Tab) 10 mg PO BID [facility] Last Admin: 02/19/21 08:04 Dose: 10 mg Documented by: Metoprolol Succinate (Metoprolol Succinate 50 Mg Tab.Er) 50 mg PO DAILY [facility] Last Admin: 02/19/21 08:03 Dose: 50 mg Documented by: Mirtazapine (Mirtazapine 15 Mg Tab) 15 mg PO BEDTIME [facility] Last Admin: 02/18/21 19:51 Dose: 15 mg Documented by: Enzalutamide [Xtandi (] 40 Mg Capsule) 0 mg PO DAILY [facility] Last Admin: 02/19/21 08:04 Dose: 120 mg Documented by: Ipratropium [place] Nasal [place] (Own Supply) 0 sprays NASBOTH TID [facility] Last Admin: 02/19/21 08:05 Dose: 2 sprays Documented by: Rivastigmine [Exelon (] Patch) 0 mg TOP DAILY [facility] Last Admin: 02/19/21 08:04 Dose: 9.5 mg Documented by: Ondansetron HCl (Ondansetron 4 Mg Tab.Dis) 4 mg PO Q4H PRN PRN Reason: nausea, able to take PO Ondansetron HCl (Ondansetron 4 Mg/2 Ml Sdv) 4 mg IV Q4H PRN PRN Reason: Nausea/Vomiting Phytonadione (Phytonadione 100 Mcg Tab) 100 mcg PO DAILY [facility] Last Admin: 02/19/21 08:03 Dose: 100 mcg Documented by: Psyllium Husk (Psyllium Husk Powder Sugar Free 5.85 Gm Packet) 1 pkt PO DAILY [facility] Last Admin: 02/19/21 08:03 Dose: 1 pkt Documented by: Fluticasone/Salmeterol (Fluticasone-Salmeterol 113-14 Mcg Powder Inhalant) 1 puff INH BIDRT [facility] Last Admin: 02/19/21 06:21 Dose: Not Given Documented by: Sodium Chloride (Sodium Chloride 0.9% 10 Ml Syringe) 10 ml FLUSH ASDIRECTED PRN PRN Reason: Keep Vein Open Tamsulosin HCl (Tamsulosin 0.4 Mg Cap.Er) 0.8 mg PO DAILY [facility] Last Admin: 02/19/21 08:04 Dose: 0.8 mg Documented by: Triamcinolone Acetonide (Triamcinolone Acetonide 0.1% Crm 15 Gm Tube) 0 gm TOP BID PRN PRN Reason: Rash Warfarin Sodium (Warfarin 5 Mg Tab) 5 mg PO MoWeFr@1999 [facility] Warfarin Sodium (Warfarin 2.5 Mg Tab) 7.5 mg PO SuTuThSa@1999 [facility] Last Admin: 02/18/21 19:51 Dose: 7.5 mg Documented by: Discontinued Medications Ceftriaxone Sodium (Ceftriaxone 1 Gm Vial) 1 gm IVPUSH STAT ONE Stop: 02/18/21 00:28 Last Admin: 02/18/21 00:50 Dose: 1 gm Documented by: Sodium Chloride (Normal Saline) 1,000 mls @ 999 mls/hr IV ONETIME ONE Stop: 02/18/21 00:44 Last Admin: 02/17/21 23:50 Dose: 999 mls/hr Documented by: Sodium Chloride (Normal Saline) 1,000 mls @ 125 mls/hr IV ASDIRECTED [facility] Last Admin: 02/18/21 00:55 Dose: 125 mls/hr Documented by: Mometasone Furoate/Formoterol Fumar (Formoterol/Mometasone 200-5 Mcg 8.8 Gm Inhaler) 2 puff IH BIDRT [facility] Last Admin: 02/18/21 14:36 Dose: Not Given Documented by: - Exam General: Alert, Cooperative, No Acute Distress HEENT: Mucous Membr. Moist/[place] Neck: Supple, Trachea Midline, No Thyromegaly. No: Lymphadenopathy Lungs: Clear to Auscultation, Normal Respiratory Effort Cardiovascular: Regular Rate, No Murmurs, Irregular Rhythm GI/Abdominal Exam: Normal Bowel Sounds, Soft, Non-Tender, No Organomegaly, No Distention, No Mass Extremities: Normal Inspection, Non-Tender, No Pedal Edema Peripheral Pulses: 2+: Radial (L), Radial (R) Skin: Warm, Dry, Intact Neurological: No New Focal Deficit - Patient Data Lab Results Last 24 hrs: Laboratory Results - last 24 hr 02/19/21 02/19/21 02/19/21 Range/Units 06:20 06:20 06:20 WBC 7.1 (4.0-10.0) x10^3/uL RBC 3.36 L (4.5-6.0) x10^6/uL Hgb 11.2 L (14.0-18.0) g/dL Hct 34.5 L (40.0-52.0) % MCV 102.7 H (78.0-93.0) fL MCH 33.3 H (26.0-32.0) pg MCHC 32.5 (32.0-36.0) g/dL RDW Coeff of [place] 14.1 (10.0-15.0) % Plt Count 76 L (130-400) x10^3/uL Add Manual Diff Yes Neutrophils % (Manual) 73 (50-80) % Band Neutrophils % 7 H (0-6) % Lymphocytes % (Manual) 12 L (25-50) % Monocytes % (Manual) 7 (2-11) % Metamyelocytes % 1 H (0) % Hypersegmented Neuts Few H Platelet Estimate Decreased L Macrocytosis 1+ slight H PT 19.6 H (9.9-12.5) SEC INR 1.8 L (2.0-3.5) Sodium 141 (136-145) mmol/L Potassium 4.3 (3.5-5.1) mmol/L Chloride 112 H (98-107) mmol/L Carbon Dioxide 19 L (21-32) mmol/L Anion Gap 14.3 (5-15) mmol/L BUN 11 (7-18) mg/dL Creatinine 1.0 (0.70-1.30) mg/dL Est Cr Clr Drug Dosing 58.46 mL/min Estimated GFR (MDRD) > 60 Glucose 97 (70-99) mg/dL Calcium 7.7 L (8.5-10.1) mg/dL Corrected Calcium 8.9 (8.5-10.1) mg/dL Total Bilirubin 0.5 (0.2-1.0) mg/dL AST 23 (15-37) U/L ALT 12 L (16-63) U/L Alkaline Phosphatase 79 (46-116) U/L Total Protein 5.7 L (6.4-8.2) g/dL Albumin 2.5 L (3.4-5.0) g/dL Globulin 3.2 Albumin/Globulin Ratio 0.78 Result Diagrams: 02/19/21 06:20 02/19/21 06:20 Tre Results Last 24 hrs: Microbiology 02/17/21 23:45 Aerobic Blood Culture - Preliminary Blood - Venous NO GROWTH AFTER 1 DAY Anaerobic Blood Culture - Preliminary NO GROWTH AFTER 1 DAY 02/17/21 23:56 Aerobic Blood Culture - Preliminary Blood - Venous - Lab Draw NO GROWTH AFTER 1 DAY Anaerobic Blood Culture - Preliminary NO GROWTH AFTER 1 DAY Sepsis Event Note - Evaluation Sepsis Screening Result: No Definite Risk - Focused Exam Vital Signs: Vital Signs Temp Pulse Pulse Resp BP BP BP 02/19/21 08:03 86 127/64 02/19/21 06:00 36.9 C 86 18 127/64 02/19/21 01:47 36.6 C 65 19 153/56 H 02/18/21 22:00 36.0 C L 60 14 126/47 L Pulse Ox 02/19/21 08:03 02/19/21 06:00 98 02/19/21 01:47 97 02/18/21 22:00 96 - Problem List & Annotations (1) Community acquired pneumonia SNOMED Code(s): 080790091 Code(s): J18.9 - PNEUMONIA, UNSPECIFIED ORGANISM Status: Acute Current Visit: Yes Qualifiers: Laterality: right Lung location: middle lobe of lung Qualified Code(s): J18.9 - Pneumonia, unspecified organism (2) Sepsis SNOMED Code(s): 46231636 Code(s): A41.9 - SEPSIS, UNSPECIFIED ORGANISM Status: Acute Current Visit: Yes Qualifiers: Sepsis type: sepsis due to unspecified organism Sepsis acute organ dysfunction status: without acute organ dysfunction Qualified Code(s): A41.9 - Sepsis, unspecified organism (3) Weakness SNOMED Code(s): 81332508 Code(s): R53.1 - WEAKNESS Status: Acute Current Visit: No (4) Alzheimer's dementia, late onset SNOMED Code(s): 01863346 Code(s): G30.1 - ALZHEIMER'S DISEASE WITH LATE ONSET; F02.80 - DEMENTIA IN OTH DISEASES CLASSD ELSWHR W/O BEHAVRL DISTURB Status: Chronic Current Visit: No (5) Atrial fibrillation SNOMED Code(s): 81800556 Code(s): I48.91 - UNSPECIFIED ATRIAL FIBRILLATION Status: Chronic Priority: Medium Current Visit: No Qualifiers: Atrial fibrillation type: paroxysmal Qualified Code(s): I48.0 - Paroxysmal atrial fibrillation (6) Diarrhea SNOMED Code(s): 83865371 Code(s): R19.7 - DIARRHEA, UNSPECIFIED Status: Chronic Priority: High Current Visit: No Qualifiers: Diarrhea type: unspecified type Qualified Code(s): R19.7 - Diarrhea, unspecified (7) Hypertension SNOMED Code(s): 74981592 Code(s): I10 - ESSENTIAL (PRIMARY) HYPERTENSION Status: Chronic Current Visit: No Qualifiers: Hypertension type: essential hypertension Qualified Code(s): I10 - Essential (primary) hypertension Annotation/Comment:: BP controlled on admission. (8) Prostate cancer SNOMED Code(s): 567593842 Code(s): C61 - MALIGNANT NEOPLASM OF PROSTATE Status: Chronic Priority: Medium Current Visit: No - Problem List Review Problem List Initiated/Reviewed/Updated: Yes - My Orders Last 24 Hours: My Active Orders 02/18/21 09:14 Admission Status [Patient Status] [ADT] Routine - Assessment Assessment:: 80 yo male admitted with sepsis secondary to pneumonia. Labs look good this am. Vitals also stable; he has not required oxygen. Was able to walk with nursing yesterday. - Plan Plan:: #1 Community Acquired Pneumonia #2 Sepsis, secondary to #1 - CXR read as negative by radiology but positive on admitting provider's (and mine as well) read. - Initially met sepsis criteria with leukocytosis and tachypnea. Had an elevated lactic initially that returned to normal with IV fluids. - Will do at least 48 hours of IV antibiotics so will continue through tonight and plan to switch to oral antibiotics tomorrow am. - Blood cultures negative so far. - Eating/drinking ok. Will bolus IV fluids PRN. #3 Generalized weakness - Likely related to above. - OT feels he is at baseline. PT eval pending. - Likely will be medically ready for d/c tomorrow - will either do swing bed or home depending on his 's comfort level and what PT says. #4 Alzheimer's dementia #5 A-fib #6 Hypertension #7 Chronic diarrhea #8 Metastatic prostate cancer #9 Mild malnutrition - Continue home medications. Patient will remain on acute today as he was admitted just over 24 hours ago - will plan to d/c home or to swing bed tomorrow. PT eval pending. Otherwise see details as above. Code status is DNR/DNI - discussed on admission. He is on wa rfarin so does not require any other VTE prophylaxis.
[2021-02-19] MEDS: atorvaSTATin 10 MG Tab PO SCH (19:52)
[2021-02-19] MEDS: cefTRIAXone 1 GM Vial IV SCH (19:52)
[2021-02-19] MEDS: Mirtazapine 15 MG Tab PO SCH (19:52)
[2021-02-19] MEDS ORDERED: Warfarin 5 MG Tab PO SCH (20:00)
[2021-02-20 05:20] VITALS: BP 117/36; PULSE 63
[2021-02-20] MEDS: Fluticasone-Salmeterol 113-14 MCG Powder Inhalant INH SCH (07:01)
[2021-02-20 07:02] LABS: CHLORIDE,CL 111 mmol/L (98-107); SODIUM,NA 141 mmol/L (136-145)
[2021-02-20] MEDS: Psyllium Husk Powder Sugar Free 5.85 GM Packet PO SCH (08:41)
[2021-02-20] MEDS: Loperamide 2 MG Cap PO SCH (08:41)
[2021-02-20] MEDS: Finasteride 5 MG Tab PO SCH (08:41)
[2021-02-20] MEDS: Azithromycin 250 MG Tab PO SCH (08:41)
[2021-02-20] MEDS: Phytonadione 100 MCG Tab PO SCH (08:41)
[2021-02-20] MEDS: Tamsulosin 0.4 MG Cap.ER PO SCH (08:41)
[2021-02-20] MEDS: Memantine 10 MG Tab PO SCH (08:42)
[2021-02-20] MEDS: Metoprolol Succinate 50 MG Tab.ER PO SCH (08:42)
[2021-02-20] MEDS: RIVASTIGMINE TOP SCH (08:43)
[2021-02-20] MEDS: Calcium Carbonate/Vitamin D3 1250 MG-5 MCG Tab PO SCH (08:44)
[2021-02-20] MEDS: Fluticasone Propionate Nasal Spray 9.9 ML BOTTLE NASBOTH SCH (08:44)
--- NOTE | 2021-02-20 09:05 | PCM.DCSUM1 ---
Discharge Summary - Hospital Course Brief History: Mr. Rincon is an 80 yo male who was admitted with pneumonia after presenting to the ER for evaluation of generalized weakness. - Discharge Data Discharge Date: 02/20/21 Discharge Disposition: Home, Self-Care 01 Condition: Fair - Referral to Home Health Primary Care Physician: Cherelle Urban MD - Discharge Diagnosis/Problem(s) (1) Community acquired pneumonia SNOMED Code(s): 872564152 ICD Code: J18.9 - PNEUMONIA, UNSPECIFIED ORGANISM Status: Acute Current Visit: Yes Qualifiers: Laterality: right Lung location: middle lobe of lung Qualified Code(s): J18.9 - Pneumonia, unspecified organism (2) Sepsis SNOMED Code(s): 64493987 ICD Code: A41.9 - SEPSIS, UNSPECIFIED ORGANISM Status: Acute Current Visit: Yes Qualifiers: Sepsis type: sepsis due to unspecified organism Sepsis acute organ dysfunction status: without acute organ dysfunction Qualified Code(s): A41.9 - Sepsis, unspecified organism (3) Weakness SNOMED Code(s): 49849469 ICD Code: R53.1 - WEAKNESS Status: Acute Current Visit: No (4) Alzheimer's dementia, late onset SNOMED Code(s): 83649528 ICD Code: G30.1 - ALZHEIMER'S DISEASE WITH LATE ONSET; F02.80 - DEMENTIA IN OTH DISEASES CLASSD ELSWHR W/O BEHAVRL DISTURB Status: Chronic Current Visit: No (5) Atrial fibrillation SNOMED Code(s): 61155790 ICD Code: I48.91 - UNSPECIFIED ATRIAL FIBRILLATION Status: Chronic Priority: Medium Current Visit: No Qualifiers: Atrial fibrillation type: paroxysmal Qualified Code(s): I48.0 - Paroxysmal atrial fibrillation (6) Diarrhea SNOMED Code(s): 82894454 ICD Code: R19.7 - DIARRHEA, UNSPECIFIED Status: Chronic Priority: High Current Visit: No Qualifiers: Diarrhea type: unspecified type Qualified Code(s): R19.7 - Diarrhea, unspecified (7) Hypertension SNOMED Code(s): 74764946 ICD Code: I10 - ESSENTIAL (PRIMARY) HYPERTENSION Status: Chronic Current Visit: No Problem Details: BP controlled on admission. Qualifiers: Hypertension type: essential hypertension Qualified Code(s): I10 - Essential (primary) hypertension (8) Prostate cancer SNOMED Code(s): 757682784 ICD Code: C61 - MALIGNANT NEOPLASM OF PROSTATE Status: Chronic Priority: Medium Current Visit: No - Patient Summary/Data Operative Procedure(s) Performed: none Complications: none Consults: Consultations 02/18/21 07:24 OT Evaluation and Treatment [CONS] Routine PT Evaluation and Treatment [CONS] Routine Labs Pending at D/C: none Recommended Follow-up Testing/Procedures: none Planned Operative Procedure(s) after DC: none Hospital Course: He was admitted and treated with antibiotics. He did receive fluids overnight just the first night of his admission. Since then, he has been able to eat and drink well. His strength has improved. He was evaluated by PT and OT and they did not feel that he would need any swing bed prior to return home. His walked with him yesterday and is also comfortable taking him home. His WBC returned to normal yesterday and remains normal today. INR did drop a little and further follow-up is deferred to the anticoagulation clinic. Anticipate this will rebound with further antibiotic treatments. His hospitalization was otherwise uncomplicated. - Patient Instructions Diet: Usual Diet as Tolerated - Discharge Plan *PRESCRIPTION DRUG MONITORING PROGRAM REVIEWED*: No *COPY OF PRESCRIPTION DRUG MONITORING REPORT IN PATIENT RODGER: No Prescriptions/Med Rec: Amoxicillin/Potassium Clav [Augmentin 875-125 Tablet] 1 each PO BID #5 tablet Home Medications: Home Meds Albuterol [Proventil HFA] 2 puff INH Q4H PRN 09/13/19 [History] Enzalutamide [Xtandi] 120 mg PO DAILY 09/13/19 [History] Finasteride 5 mg PO DAILY 09/13/19 [History] Fluticasone Propionate [Flonase] 1 spray NASBOTH DAILY 09/13/19 [History] Ipratropium [place] 2 sprays NASBOTH TID 09/13/19 [History] Memantine HCl 10 mg PO BID 09/13/19 [History] Metoprolol Succinate [Toprol Xl] 50 mg PO DAILY 09/13/19 [History] Tamsulosin HCl [Flomax] 0.8 mg PO DAILY 09/13/19 [History] Warfarin [Coumadin] 5 mg PO ASDIRECTED 09/13/19 [History] atorvaSTATin [Lipitor] 10 mg PO BEDTIME 09/13/19 [History] Denosumab [Xgeva] 120 mg SUBCUT ASDIRECTED 02/18/21 [History] Fluticasone/Vilanterol [Breo Ellipta 200-25 MCG Inhalation Kit] 1 puff IH DAILY 02/18/21 [History] Hydrocortisone Butyrate/Emoll [Locoid 0.1% Lipocream] 15 gm TP BID PRN 02/18/21 [History] Leuprolide Acetate [Lupron Depot-Ped] 30 mg IM ASDIRECTED 02/18/21 [History] Loperamide [Imodium] 2 mg PO DAILY 02/18/21 [History] Mirtazapine [Remeron] 15 mg PO BEDTIME 02/18/21 [History] Non-Formulary Medication [NF Drug] 1 tab PO BID 02/18/21 [History] Non-Formulary Medication [NF Drug] 1 tbs PO DAILY 02/18/21 [History] Phytonadione [Vitamin K] 100 mcg PO DAILY 02/18/21 [History] Rivastigmine [Exelon] 9.5 mg TD DAILY 02/18/21 [History] Amoxicillin/Potassium Clav [Augmentin 875-125 Tablet] 1 each PO BID #5 tablet 02/20/21 [Rx] Warfarin [Coumadin] 7.5 mg PO SuTuThSa@2000 tablet 02/20/21 [Rx] Forms: ED Department Discharge Referrals: PCP,None [Ordering Only Provider] - 03/03/21 2:30 pm (You have a follow up appt. with Dr. Ga Urban on March 03, 2021 at 2:30pm---[facility]. Please wear a mask to your appt.) - Discharge Summary/Plan Comment DC Time >30 min.: No - General Info Date of Service: 02/20/21 Subjective Update: Patient is doing well this morning and ready to go home. Cough is improving. His is at bedside. They both deny any coughing/choking with eating. He has been swallowing without any issues. - Review of Systems General: Reports: No Symptoms HEENT: Reports: No Symptoms Pulmonary: Reports: Cough. Denies: Shortness of Breath Cardiovascular: Reports: No Symptoms Gastrointestinal: Reports: No Symptoms Genitourinary: Reports: No Symptoms Musculoskeletal: Reports: No Symptoms Skin: Reports: No Symptoms Neurological: Reports: No Symptoms - Patient Data Vitals - Most Recent: Last Vital Signs Temp 36.1 C 02/20/21 05:19 Pulse 63 02/20/21 08:42 Resp 16 02/20/21 05:19 BP 117/36 L 02/20/21 08:42 Pulse Ox 95 02/20/21 05:19 Weight - Most Recent: 72.575 kg I&O - Last 24 hours: Intake & Output 02/19/21 02/20/21 02/20/21 22:59 06:59 14:59 Intake Total 540 300 Balance 540 300 Lab Results - Last 24 hrs: Laboratory Results - last 24 hr 02/20/21 02/20/21 Range/Units 06:22 06:22 WBC 5.9 (4.0-10.0) x10^3/uL RBC 3.54 L (4.5-6.0) x10^6/uL Hgb 11.7 L (14.0-18.0) g/dL Hct 36.1 L (40.0-52.0) % MCV 102.0 H (78.0-93.0) fL MCH 33.1 H (26.0-32.0) pg MCHC 32.4 (32.0-36.0) g/dL RDW Coeff of [place] 13.9 (10.0-15.0) % Plt Count 87 L (130-400) x10^3/uL Add Manual Diff Yes Neutrophils % (Manual) 78 (50-80) % Lymphocytes % (Manual) 13 L (25-50) % Monocytes % (Manual) 9 (2-11) % Platelet Estimate Marked dec L Sodium 141 (136-145) mmol/L Potassium 4.0 (3.5-5.1) mmol/L Chloride 111 H (98-107) mmol/L Carbon Dioxide 23 (21-32) mmol/L Anion Gap 11.0 (5-15) mmol/L BUN 8 (7-18) mg/dL Creatinine 1.0 (0.70-1.30) mg/dL Est Cr Clr Drug Dosing 58.46 mL/min Estimated GFR (MDRD) > 60 Glucose 91 (70-99) mg/dL Calcium 8.0 L (8.5-10.1) mg/dL DARINEL Results - Last 24 hrs: Microbiology 02/17/21 23:45 Aerobic Blood Culture - Preliminary Blood - Venous NO GROWTH AFTER 2 DAYS Anaerobic Blood Culture - Preliminary NO GROWTH AFTER 2 DAYS 02/17/21 23:56 Aerobic Blood Culture - Preliminary Blood - Venous - Lab Draw NO GROWTH AFTER 2 DAYS Anaerobic Blood Culture - Preliminary NO GROWTH AFTER 2 DAYS Med Orders - Current: Current Medications Albuterol (Albuterol Hfa 18 Gm Inhaler) 0 gm INH Q4H PRN PRN Reason: Wheezing Last Admin: 02/19/21 20:07 Dose: 2 puff Documented by: Albuterol/Ipratropium (Albuterol/Ipratropium 3.0-0.5 Mg/3 Ml Neb Soln) 3 ml NEB Q4HRRT PRN PRN Reason: Cough Last Admin: 02/20/21 07:03 Dose: 3 ml Documented by: Atorvastatin Calcium (Atorvastatin 10 Mg Tab) 10 mg PO BEDTIME [facility] Last Admin: 02/19/21 19:52 Dose: 10 mg Documented by: Azithromycin (Azithromycin 250 Mg Tab) 500 mg PO DAILY [facility] Last Admin: 02/20/21 08:41 Dose: 500 mg Documented by: Calcium Carbonate (Calcium Carbonate/Vitamin D3 1250 Mg-5 Mcg Tab) 1 tab PO BID [facility] Last Admin: 02/20/21 08:44 Dose: 1 tab Documented by: Ceftriaxone Sodium (Ceftriaxone 1 Gm Vial) 1 gm IV BEDTIME [facility] Last Admin: 02/19/21 19:52 Dose: 1 gm Documented by: Finasteride (Finasteride 5 Mg Tab) 5 mg PO DAILY [facility] Last Admin: 02/20/21 08:41 Dose: 5 mg Documented by: Fluticasone Propionate (Fluticasone Propionate Nasal [place] 9.9 Ml Bottle) 0 ml NASBOTH DAILY [facility] Last Admin: 02/20/21 08:44 Dose: 1 spray Documented by: Loperamide HCl (Loperamide 2 Mg Cap) 2 mg PO DAILY [facility] Last Admin: 02/20/21 08:41 Dose: 2 mg Documented by: Memantine (Memantine 10 Mg Tab) 10 mg PO BID [facility] Last Admin: 02/20/21 08:42 Dose: 10 mg Documented by: Metoprolol Succinate (Metoprolol Succinate 50 Mg Tab.Er) 50 mg PO DAILY [facility] Last Admin: 02/20/21 08:42 Dose: 50 mg Documented by: Mirtazapine (Mirtazapine 15 Mg Tab) 15 mg PO BEDTIME [facility] Last Admin: 02/19/21 19:52 Dose: 15 mg Documented by: Enzalutamide [Xtandi (] 40 Mg Capsule) 0 mg PO DAILY [facility] Last Admin: 02/20/21 08:44 Dose: 120 mg Documented by: Ipratropium [place] Nasal [place] (Own Supply) 0 sprays NASBOTH TID [facility] Last Admin: 02/20/21 08:44 Dose: 2 sprays Documented by: Rivastigmine [Exelon (] Patch) 0 mg TOP DAILY [facility] Last Admin: 02/20/21 08:43 Dose: 9.5 mg Documented by: Ondansetron HCl (Ondansetron 4 Mg Tab.Dis) 4 mg PO Q4H PRN PRN Reason: nausea, able to take PO Ondansetron HCl (Ondansetron 4 Mg/2 Ml Sdv) 4 mg IV Q4H PRN PRN Reason: Nausea/Vomiting Phytonadione (Phytonadione 100 Mcg Tab) 100 mcg PO DAILY [facility] Last Admin: 02/20/21 08:41 Dose: 100 mcg Documented by: Psyllium Husk (Psyllium Husk Powder Sugar Free 5.85 Gm Packet) 1 pkt PO DAILY [facility] Last Admin: 02/20/21 08:41 Dose: 1 pkt Documented by: Fluticasone/Salmeterol (Fluticasone-Salmeterol 113-14 Mcg Powder Inhalant) 1 puff INH BIDRT [facility] Last Admin: 02/20/21 07:01 Dose: 1 puff Documented by: Sodium Chloride (Sodium Chloride 0.9% 10 Ml Syringe) 10 ml FLUSH ASDIRECTED PRN PRN Reason: Keep Vein Open Last Admin: 02/19/21 19:53 Dose: 10 ml Documented by: Tamsulosin HCl (Tamsulosin 0.4 Mg Cap.Er) 0.8 mg PO DAILY [facility] Last Admin: 02/20/21 08:41 Dose: 0.8 mg Documented by: Triamcinolone Acetonide (Triamcinolone Acetonide 0.1% Crm 15 Gm Tube) 0 gm TOP BID PRN PRN Reason: Rash Warfarin Sodium (Warfarin 5 Mg Tab) 5 mg PO MoWeFr@1999 [facility] Last Admin: 02/19/21 19:52 Dose: 5 mg Documented by: Warfarin Sodium (Warfarin 2.5 Mg Tab) 7.5 mg PO SuTuThSa@1999 [facility] Last Admin: 02/18/21 19:51 Dose: 7.5 mg Documented by: Discontinued Medications Ceftriaxone Sodium (Ceftriaxone 1 Gm Vial) 1 gm IVPUSH STAT ONE Stop: 02/18/21 00:28 Last Admin: 02/18/21 00:50 Dose: 1 gm Documented by: Sodium Chloride (Normal Saline) 1,000 mls @ 999 mls/hr IV ONETIME ONE Stop: 02/18/21 00:44 Last Admin: 02/17/21 23:50 Dose: 999 mls/hr Documented by: Sodium Chloride (Normal Saline) 1,000 mls @ 125 mls/hr IV ASDIRECTED [facility] Last Admin: 02/18/21 00:55 Dose: 125 mls/hr Documented by: Mometasone Furoate/Formoterol Fumar (Formoterol/Mometasone 200-5 Mcg 8.8 Gm Inhaler) 2 puff IH BIDRT [facility] Last Admin: 02/18/21 14:36 Dose: Not Given Documented by: - Exam General: Reports: Alert, Oriented, Cooperative, No Acute Distress HEENT: Reports: Mucous Membr. Moist/[place] Neck: Reports: Supple, Trachea Midline, No Thyromegaly Lungs: Reports: Clear to Auscultation, Normal Respiratory Effort Cardiovascular: Reports: Regular Rate, No Murmurs, Irregular Rhythm GI/Abdominal Exam: Normal Bowel Sounds, Soft, Non-Tender, No Organomegaly, No Mass Extremities: Non-Tender, No Pedal Edema, Normal Capillary Refill Skin: Reports: Warm, Dry, Intact
== END 2021-02-20 10:10 | disposition home or self-care (01) | DRG 871 ==
LOC: VM.ED 22:53 → VM.MS 02-18 01:20 → VM.ED 02-18 01:20 → UNDOADMIN 02-18 01:22 → VM.MS 02-18 01:22 → VM.ED 02-18 01:35 → UNDODISIN 02-20 10:10
PROVIDERS: ADMIT Family Medicine; ATTEND Family Medicine
DX: A41.9 Sepsis, unspecified organism (principal); J18.9 Pneumonia, unspecified organism; R53.1 Weakness; C79.51 Secondary malignant neoplasm of bone; E44.1 Mild protein-calorie malnutrition; I48.91 Unspecified atrial fibrillation; F05 Delirium due to known physiological condition; G30.1 Alzheimer's disease with late onset; F02.80 Dementia in other diseases classified elsewhere, unspecified severity, without behavioral disturbance, psychotic disturbance, mood disturbance, and anxiety; I48.0 Paroxysmal atrial fibrillation; Z66 Do not resuscitate; Z20.822 Contact with and (suspected) exposure to COVID-19; I10 Essential (primary) hypertension; C61 Malignant neoplasm of prostate; K52.9 Noninfective gastroenteritis and colitis, unspecified; E78.5 Hyperlipidemia, unspecified; E86.0 Dehydration; I49.5 Sick sinus syndrome; J45.909 Unspecified asthma, uncomplicated; D69.6 Thrombocytopenia, unspecified; E78.00 Pure hypercholesterolemia, unspecified; Z88.8 Allergy status to other drugs, medicaments and biological substances; Z79.899 Other long term (current) drug therapy; Z87.891 Personal history of nicotine dependence; Z95.0 Presence of cardiac pacemaker; Z85.828 Personal history of other malignant neoplasm of skin; Z79.01 Long term (current) use of anticoagulants; Z68.23 Body mass index [BMI] 23.0-23.9, adult
CPT/HCPCS: 36415; 51798; 71045; 80048; 80053; 81001; 83605; 83735; 85025; 85610; 85730; 86140; 87040; 93005; 93010; 96374; 97161-GP; 97165-GO; 99284; 99285-25; A9270-GY; J0696; J7030; J7620-GY; U0002

== ENCOUNTER 2021-09-29 14:56 | Observation (INO) | payer MEDICARE, BC ==
[2021-09-29 15:45] LABS: ANION GAP 18.2 mmol/L (5-15); CHLORIDE,CL 105 mmol/L (98-107); SODIUM,NA 143 mmol/L (136-145)
[2021-09-29] MEDS ORDERED: Ondansetron 4 MG/2 ML SDV IV PRN (17:18)
[2021-09-29] MEDS ORDERED: Albuterol HFA 18 Gm Inhaler INH PRN (17:21)
[2021-09-29] MEDS ORDERED: Acetaminophen 325 MG Tab PO PRN (17:24)
[2021-09-29] MEDS ORDERED: Warfarin 5 MG Tab PO ONE (17:55)
[2021-09-29 18:15] VITALS: PULSE 60
[2021-09-29] MEDS: Memantine 10 MG Tab PO SCH (19:42)
[2021-09-29] MEDS ORDERED: Mirtazapine 15 MG Tab PO SCH (20:00)
[2021-09-30 07:16] LABS: ANION GAP 14.1 mmol/L (5-15); CHLORIDE,CL 109 mmol/L (98-107); SODIUM,NA 142 mmol/L (136-145)
[2021-09-30] MEDS ORDERED: METOPROLOL SUCCINATE 100 MG PO SCH (08:00)
[2021-09-30] MEDS ORDERED: RIVASTIGMINE TD SCH (08:00)
[2021-09-30] MEDS ORDERED: Phytonadione 100 MCG Tab PO SCH (08:00)
[2021-09-30] MEDS ORDERED: Finasteride 5 MG Tab PO SCH (08:00)
[2021-09-30] MEDS ORDERED: Sertraline 50 MG Tab PO SCH (08:00)
[2021-09-30] MEDS: Memantine 10 MG Tab PO SCH (08:08)
[2021-09-30 10:22] VITALS: BP 127/70
[2021-09-30] MEDS ORDERED: Warfarin 5 MG Tab PO SCH (20:00)
[2021-10-01] MEDS ORDERED: Metoprolol Succinate 25 MG Tab.ER PO SCH (08:00)
== END 2021-09-30 12:40 | disposition home health service (06) ==
LOC: VM.ED 14:56 → VM.MS 16:49
PROVIDERS: ADMIT Physician Assistant Medical; ATTEND Internal Medicine
DX: S09.90XA Unspecified injury of head, initial encounter (principal); R29.6 Repeated falls; I10 Essential (primary) hypertension; E78.5 Hyperlipidemia, unspecified; N40.0 Benign prostatic hyperplasia without lower urinary tract symptoms; J44.9 Chronic obstructive pulmonary disease, unspecified; G30.9 Alzheimer's disease, unspecified; C61 Malignant neoplasm of prostate; I48.0 Paroxysmal atrial fibrillation; D64.9 Anemia, unspecified; D69.6 Thrombocytopenia, unspecified; G24.3 Spasmodic torticollis; G31.9 Degenerative disease of nervous system, unspecified; Z20.822 Contact with and (suspected) exposure to COVID-19; Z88.8 Allergy status to other drugs, medicaments and biological substances; Z79.899 Other long term (current) drug therapy; Z98.890 Other specified postprocedural states; Z79.82 Long term (current) use of aspirin
CPT/HCPCS: 36415; 70450; 72125; 80048; 80053; 81001; 84484; 85025; 85610; 93005; 97161-GP; 97165-GO; 99285; 99285-25; A9270-GY; G0378; U0002

== ENCOUNTER 2022-04-06 11:57 | Inpatient (IN) | payer MEDICARE, BC ==
[2022-04-06 12:51] LABS: ANION GAP 19.4 mmol/L (5-15)
[2022-04-06 13:00] LABS: CORONAVIRUS COVID-19 NAA NEGATIVE (NEGATIVE); RESPIRATORY SYNCYTIAL VIR NAA NEGATIVE (NEGATIVE)
[2022-04-06] MEDS ORDERED: cefTRIAXone 2 GM Vial IVPUSH ONE (13:06)
[2022-04-06] MEDS: Sodium Chloride 0.9% 1,000 ML IV SCH (13:57)
[2022-04-06] MEDS ORDERED: Acetaminophen 325 MG Tab PO PRN (14:41)
[2022-04-06] MEDS ORDERED: Loperamide 2 MG Cap PO PRN (14:48)
[2022-04-06] MEDS: Azithromycin 250 MG Tab PO SCH (16:52)
[2022-04-06] MEDS ORDERED: Warfarin 5 MG Tab PO SCH (20:00)
[2022-04-06] MEDS: Memantine 10 MG Tab PO SCH (20:24)
[2022-04-06] MEDS: atorvaSTATin 10 MG Tab PO SCH (20:24)
[2022-04-06] MEDS: Mirtazapine 15 MG Tab PO SCH (20:24)
[2022-04-07] MEDS: Sodium Chloride 0.9% 1,000 ML IV SCH ×2 (04:58→08:10)
[2022-04-07 07:12] LABS: ANION GAP 17.8 mmol/L (5-15)
[2022-04-07] MEDS: Pantoprazole 40 MG Tab.CR PO SCH (07:32)
[2022-04-07] MEDS: Phytonadione 100 MCG Tab PO SCH (08:12)
[2022-04-07] MEDS: Venlafaxine 37.5 MG Cap.ER PO SCH (08:12)
[2022-04-07] MEDS: Memantine 10 MG Tab PO SCH ×2 (08:12→20:02)
[2022-04-07] MEDS: Finasteride 5 MG Tab PO SCH (08:12)
[2022-04-07] MEDS: Tamsulosin 0.4 MG Cap.ER PO SCH (08:12)
[2022-04-07] MEDS: cefTRIAXone 1 GM Vial IVPUSH SCH (08:13)
[2022-04-07] MEDS: XTANDI 40 MG PO SCH (08:14)
[2022-04-07] MEDS: TRELEGY ELLIPTA PO SCH (08:14)
[2022-04-07] MEDS: Azithromycin 250 MG Tab PO SCH (15:48)
[2022-04-07] MEDS ORDERED: Warfarin 5 MG Tab PO SCH (20:00)
[2022-04-07] MEDS: atorvaSTATin 10 MG Tab PO SCH (20:02)
[2022-04-07] MEDS: Sodium Chloride 0.9% 10 ML Syringe FLUSH SCH (20:08)
[2022-04-07] MEDS: Mirtazapine 15 MG Tab PO SCH (20:11)
[2022-04-08] MEDS: Pantoprazole 40 MG Tab.CR PO SCH (06:25)
[2022-04-08 07:34] LABS: ANION GAP 19.5 mmol/L (5-15)
[2022-04-08] MEDS: cefTRIAXone 1 GM Vial IVPUSH SCH (08:56)
[2022-04-08] MEDS: Tamsulosin 0.4 MG Cap.ER PO SCH (08:57)
[2022-04-08] MEDS: Phytonadione 100 MCG Tab PO SCH (08:57)
[2022-04-08] MEDS: Finasteride 5 MG Tab PO SCH (08:57)
[2022-04-08] MEDS: Memantine 10 MG Tab PO SCH ×2 (08:57→20:38)
[2022-04-08] MEDS: Venlafaxine 37.5 MG Cap.ER PO SCH (08:57)
[2022-04-08] MEDS: TRELEGY ELLIPTA PO SCH (08:58)
[2022-04-08] MEDS: XTANDI 40 MG PO SCH (08:58)
[2022-04-08] MEDS: Sodium Chloride 0.9% 10 ML Syringe FLUSH SCH ×2 (09:01→20:42)
[2022-04-08] MEDS: Azithromycin 250 MG Tab PO SCH (14:35)
[2022-04-08] MEDS ORDERED: Warfarin 2.5 MG Tab PO ONE (20:00)
[2022-04-08] MEDS: atorvaSTATin 10 MG Tab PO SCH (20:38)
[2022-04-08] MEDS: Mirtazapine 15 MG Tab PO SCH (20:41)
[2022-04-08] MEDS: Loperamide 2 MG Cap PO SCH (20:42)
[2022-04-09] MEDS: Pantoprazole 40 MG Tab.CR PO SCH (06:00)
[2022-04-09 06:01] VITALS: BP 124/46; PULSE 66
[2022-04-09 07:07] LABS: ANION GAP 15.5 mmol/L (5-15)
[2022-04-09] MEDS: cefTRIAXone 1 GM Vial IVPUSH SCH (08:59)
[2022-04-09] MEDS: Venlafaxine 37.5 MG Cap.ER PO SCH (09:00)
[2022-04-09] MEDS: Phytonadione 100 MCG Tab PO SCH (09:00)
[2022-04-09] MEDS: Loperamide 2 MG Cap PO SCH (09:01)
[2022-04-09] MEDS: Sodium Chloride 0.9% 10 ML Syringe FLUSH SCH (09:01)
[2022-04-09] MEDS: Finasteride 5 MG Tab PO SCH (09:01)
[2022-04-09] MEDS: Tamsulosin 0.4 MG Cap.ER PO SCH (09:01)
[2022-04-09] MEDS: Memantine 10 MG Tab PO SCH (09:01)
[2022-04-09] MEDS: XTANDI 40 MG PO SCH (09:05)
[2022-04-09] MEDS: TRELEGY ELLIPTA PO SCH (09:06)
[2022-04-09] MEDS ORDERED: Warfarin 2.5 MG Tab PO ONE (20:00)
== END 2022-04-09 10:30 | disposition swing bed (61) | DRG 871 ==
LOC: VM.ED 11:57 → VM.MS 13:10
PROVIDERS: ADMIT Family Medicine; ATTEND Family Medicine
DX: A41.9 Sepsis, unspecified organism (principal); J18.9 Pneumonia, unspecified organism; K52.1 Toxic gastroenteritis and colitis; G30.1 Alzheimer's disease with late onset; G30.9 Alzheimer's disease, unspecified; F02.80 Dementia in other diseases classified elsewhere, unspecified severity, without behavioral disturbance, psychotic disturbance, mood disturbance, and anxiety; Z85.46 Personal history of malignant neoplasm of prostate; Z85.830 Personal history of malignant neoplasm of bone; I48.0 Paroxysmal atrial fibrillation; I10 Essential (primary) hypertension; E78.00 Pure hypercholesterolemia, unspecified; Z20.822 Contact with and (suspected) exposure to COVID-19; Z66 Do not resuscitate; I48.91 Unspecified atrial fibrillation; K21.9 Gastro-esophageal reflux disease without esophagitis; Z87.891 Personal history of nicotine dependence; T47.6X5A Adverse effect of antidiarrheal drugs, initial encounter; C61 Malignant neoplasm of prostate; I35.1 Nonrheumatic aortic (valve) insufficiency; Z88.8 Allergy status to other drugs, medicaments and biological substances; Z79.01 Long term (current) use of anticoagulants; Z79.899 Other long term (current) drug therapy; Z85.828 Personal history of other malignant neoplasm of skin; Z95.0 Presence of cardiac pacemaker
CPT/HCPCS: 0241U; 36415; 71045; 80048; 80053; 81001; 83605; 83880; 84484; 85025; 85610; 86140; 87040; 97110-GP; 97116-GP; 97161-GP; 99284; A9270-GY; J0696; J3490; J7030

== ENCOUNTER 2022-04-09 10:37 | Inpatient (IN) | payer MEDICARE, BC ==
[2022-04-09] MEDS ORDERED: Albuterol 0.083% 2.5 MG/3 ML Neb Soln INH PRN (13:15)
[2022-04-09] MEDS ORDERED: Acetaminophen 325 MG Tab PO PRN (13:15)
[2022-04-09] MEDS: Azithromycin 250 MG Tab PO SCH (16:38)
[2022-04-09] MEDS: Calcium Carbonate/Vitamin D3 1250 MG-5 MCG Tab PO SCH (18:28)
[2022-04-09] MEDS ORDERED: Warfarin 2.5 MG Tab PO ONE (20:00)
[2022-04-09] MEDS: Loperamide 2 MG Cap PO SCH (20:15)
[2022-04-09] MEDS: atorvaSTATin 10 MG Tab PO SCH (20:15)
[2022-04-09] MEDS: Memantine 10 MG Tab PO SCH (20:15)
[2022-04-09] MEDS: Amoxicillin 875 MG Tab PO SCH (20:16)
[2022-04-09] MEDS: Mirtazapine 15 MG Tab PO SCH (20:16)
[2022-04-10] MEDS: Pantoprazole 40 MG Tab.CR PO SCH (06:13)
[2022-04-10] MEDS: Amoxicillin 875 MG Tab PO SCH ×2 (08:33→19:59)
[2022-04-10] MEDS: Tamsulosin 0.4 MG Cap.ER PO SCH (08:33)
[2022-04-10] MEDS: Memantine 10 MG Tab PO SCH ×2 (08:33→19:59)
[2022-04-10] MEDS: Finasteride 5 MG Tab PO SCH (08:34)
[2022-04-10] MEDS: Loperamide 2 MG Cap PO SCH ×2 (08:34→19:59)
[2022-04-10] MEDS: Venlafaxine 37.5 MG Cap.ER PO SCH (08:34)
[2022-04-10] MEDS: Phytonadione 100 MCG Tab PO SCH (08:34)
[2022-04-10] MEDS: Calcium Carbonate/Vitamin D3 1250 MG-5 MCG Tab PO SCH ×2 (08:35→18:00)
[2022-04-10] MEDS: FLUTICASONE PO SCH (08:36)
[2022-04-10] MEDS: VILANTER PO SCH (08:36)
[2022-04-10] MEDS: UMECLIDIN PO SCH (08:36)
[2022-04-10] MEDS: ENZALUTAMIDE 40 MG PO SCH (10:17)
[2022-04-10] MEDS: Fluticasone Propionate Nasal Spray 9.9 ML BOTTLE NASBOTH SCH (10:17)
[2022-04-10] MEDS: RIVASTIGMINE 13.3 MG TOP SCH (10:18)
[2022-04-10] MEDS: Azithromycin 250 MG Tab PO SCH (14:54)
[2022-04-10] MEDS: atorvaSTATin 10 MG Tab PO SCH (19:59)
[2022-04-10] MEDS: Mirtazapine 15 MG Tab PO SCH (19:59)
[2022-04-10] MEDS ORDERED: Warfarin 2.5 MG Tab PO ONE (20:00)
[2022-04-11] MEDS: Pantoprazole 40 MG Tab.CR PO SCH (06:09)
[2022-04-11] MEDS: Tamsulosin 0.4 MG Cap.ER PO SCH (08:13)
[2022-04-11] MEDS: Loperamide 2 MG Cap PO SCH ×2 (08:13→20:00)
[2022-04-11] MEDS: Calcium Carbonate/Vitamin D3 1250 MG-5 MCG Tab PO SCH ×2 (08:13→18:16)
[2022-04-11] MEDS: Amoxicillin 875 MG Tab PO SCH ×2 (08:13→20:00)
[2022-04-11] MEDS: Phytonadione 100 MCG Tab PO SCH (08:13)
[2022-04-11] MEDS: Venlafaxine 37.5 MG Cap.ER PO SCH (08:14)
[2022-04-11] MEDS: Finasteride 5 MG Tab PO SCH (08:14)
[2022-04-11] MEDS: Memantine 10 MG Tab PO SCH ×2 (08:14→20:00)
[2022-04-11] MEDS: Fluticasone Propionate Nasal Spray 9.9 ML BOTTLE NASBOTH SCH (08:15)
[2022-04-11] MEDS: UMECLIDIN PO SCH (08:16)
[2022-04-11] MEDS: VILANTER PO SCH (08:16)
[2022-04-11] MEDS: FLUTICASONE PO SCH (08:16)
[2022-04-11] MEDS: ENZALUTAMIDE 40 MG PO SCH (08:19)
[2022-04-11] MEDS: RIVASTIGMINE 13.3 MG TOP SCH (09:54)
[2022-04-11] MEDS: Azithromycin 250 MG Tab PO SCH (14:33)
[2022-04-11] MEDS: atorvaSTATin 10 MG Tab PO SCH (20:00)
[2022-04-11] MEDS ORDERED: Warfarin 2.5 MG Tab PO ONE (20:00)
[2022-04-11] MEDS: Mirtazapine 15 MG Tab PO SCH (20:00)
[2022-04-12] MEDS: Pantoprazole 40 MG Tab.CR PO SCH (07:06)
[2022-04-12] MEDS: Tamsulosin 0.4 MG Cap.ER PO SCH (08:22)
[2022-04-12] MEDS: Calcium Carbonate/Vitamin D3 1250 MG-5 MCG Tab PO SCH ×2 (08:22→19:00)
[2022-04-12] MEDS: Memantine 10 MG Tab PO SCH ×2 (08:23→20:47)
[2022-04-12] MEDS: Amoxicillin 875 MG Tab PO SCH ×2 (08:23→20:47)
[2022-04-12] MEDS: Phytonadione 100 MCG Tab PO SCH (08:23)
[2022-04-12] MEDS: Venlafaxine 37.5 MG Cap.ER PO SCH (08:23)
[2022-04-12] MEDS: Loperamide 2 MG Cap PO SCH ×2 (08:23→20:47)
[2022-04-12] MEDS: Finasteride 5 MG Tab PO SCH (08:23)
[2022-04-12] MEDS: Fluticasone Propionate Nasal Spray 9.9 ML BOTTLE NASBOTH SCH (08:24)
[2022-04-12] MEDS: UMECLIDIN PO SCH (08:26)
[2022-04-12] MEDS: FLUTICASONE PO SCH (08:26)
[2022-04-12] MEDS: VILANTER PO SCH (08:26)
[2022-04-12] MEDS: ENZALUTAMIDE 40 MG PO SCH (08:26)
[2022-04-12] MEDS: RIVASTIGMINE 13.3 MG TOP SCH (08:26)
[2022-04-12] MEDS ORDERED: Warfarin 2.5 MG Tab PO ONE (20:00)
[2022-04-12] MEDS: Mirtazapine 15 MG Tab PO SCH (20:47)
[2022-04-12] MEDS: atorvaSTATin 10 MG Tab PO SCH (20:47)
[2022-04-13] MEDS: Pantoprazole 40 MG Tab.CR PO SCH (06:25)
[2022-04-13] MEDS: Phytonadione 100 MCG Tab PO SCH (08:21)
[2022-04-13] MEDS: Venlafaxine 37.5 MG Cap.ER PO SCH (08:21)
[2022-04-13] MEDS: Calcium Carbonate/Vitamin D3 1250 MG-5 MCG Tab PO SCH ×2 (08:21→17:46)
[2022-04-13] MEDS: Finasteride 5 MG Tab PO SCH (08:22)
[2022-04-13] MEDS: Memantine 10 MG Tab PO SCH ×2 (08:22→20:20)
[2022-04-13] MEDS: Tamsulosin 0.4 MG Cap.ER PO SCH (08:22)
[2022-04-13] MEDS: Loperamide 2 MG Cap PO SCH ×2 (08:22→20:20)
[2022-04-13] MEDS: Fluticasone Propionate Nasal Spray 9.9 ML BOTTLE NASBOTH SCH (08:23)
[2022-04-13] MEDS: UMECLIDIN PO SCH (09:35)
[2022-04-13] MEDS: FLUTICASONE PO SCH (09:35)
[2022-04-13] MEDS: VILANTER PO SCH (09:35)
[2022-04-13] MEDS: RIVASTIGMINE 13.3 MG TOP SCH (09:35)
[2022-04-13] MEDS: ENZALUTAMIDE 40 MG PO SCH (09:37)
[2022-04-13] MEDS ORDERED: Warfarin 2.5 MG Tab PO ONE (20:00)
[2022-04-13] MEDS: atorvaSTATin 10 MG Tab PO SCH (20:19)
[2022-04-13] MEDS: Mirtazapine 15 MG Tab PO SCH (20:20)
[2022-04-14] MEDS: Pantoprazole 40 MG Tab.CR PO SCH (06:19)
[2022-04-14] MEDS: Phytonadione 100 MCG Tab PO SCH (08:45)
[2022-04-14] MEDS: Loperamide 2 MG Cap PO SCH ×2 (08:45→20:21)
[2022-04-14] MEDS: Finasteride 5 MG Tab PO SCH (08:45)
[2022-04-14] MEDS: Calcium Carbonate/Vitamin D3 1250 MG-5 MCG Tab PO SCH ×2 (08:45→17:33)
[2022-04-14] MEDS: Venlafaxine 37.5 MG Cap.ER PO SCH (08:45)
[2022-04-14] MEDS: VILANTER PO SCH (08:46)
[2022-04-14] MEDS: Memantine 10 MG Tab PO SCH ×2 (08:46→20:21)
[2022-04-14] MEDS: Tamsulosin 0.4 MG Cap.ER PO SCH (08:46)
[2022-04-14] MEDS: FLUTICASONE PO SCH (08:46)
[2022-04-14] MEDS: UMECLIDIN PO SCH (08:46)
[2022-04-14] MEDS: RIVASTIGMINE 13.3 MG TOP SCH (08:47)
[2022-04-14] MEDS: ENZALUTAMIDE 40 MG PO SCH (08:47)
[2022-04-14] MEDS: Fluticasone Propionate Nasal Spray 9.9 ML BOTTLE NASBOTH SCH (08:51)
[2022-04-14] MEDS: Mirtazapine 15 MG Tab PO SCH (20:21)
[2022-04-14] MEDS: atorvaSTATin 10 MG Tab PO SCH (20:21)
[2022-04-14] MEDS ORDERED: Warfarin 5 MG Tab PO ONE (21:00)
[2022-04-15] MEDS: Pantoprazole 40 MG Tab.CR PO SCH (06:32)
[2022-04-15] MEDS: RIVASTIGMINE 13.3 MG TOP SCH (08:52)
[2022-04-15] MEDS: VILANTER PO SCH (08:55)
[2022-04-15] MEDS: ENZALUTAMIDE 40 MG PO SCH (08:55)
[2022-04-15] MEDS: FLUTICASONE PO SCH (08:55)
[2022-04-15] MEDS: UMECLIDIN PO SCH (08:55)
[2022-04-15] MEDS: Fluticasone Propionate Nasal Spray 9.9 ML BOTTLE NASBOTH SCH (08:56)
[2022-04-15] MEDS: Calcium Carbonate/Vitamin D3 1250 MG-5 MCG Tab PO SCH ×2 (08:56→17:11)
[2022-04-15] MEDS: Venlafaxine 37.5 MG Cap.ER PO SCH (08:57)
[2022-04-15] MEDS: Phytonadione 100 MCG Tab PO SCH (08:57)
[2022-04-15] MEDS: Finasteride 5 MG Tab PO SCH (08:57)
[2022-04-15] MEDS: Memantine 10 MG Tab PO SCH ×2 (08:57→20:25)
[2022-04-15] MEDS: Tamsulosin 0.4 MG Cap.ER PO SCH (08:57)
[2022-04-15] MEDS: Loperamide 2 MG Cap PO SCH ×2 (08:58→20:26)
[2022-04-15] MEDS: Mirtazapine 15 MG Tab PO SCH (20:25)
[2022-04-15] MEDS: atorvaSTATin 10 MG Tab PO SCH (20:25)
[2022-04-15] MEDS ORDERED: Warfarin 2.5 MG Tab PO SCH (21:00)
[2022-04-16] MEDS: Pantoprazole 40 MG Tab.CR PO SCH (06:34)
[2022-04-16 06:38] VITALS: BP 138/63; PULSE 61
[2022-04-16] MEDS: Calcium Carbonate/Vitamin D3 1250 MG-5 MCG Tab PO SCH (08:40)
[2022-04-16] MEDS: Venlafaxine 37.5 MG Cap.ER PO SCH (08:40)
[2022-04-16] MEDS: Finasteride 5 MG Tab PO SCH (08:40)
[2022-04-16] MEDS: Phytonadione 100 MCG Tab PO SCH (08:40)
[2022-04-16] MEDS: Tamsulosin 0.4 MG Cap.ER PO SCH (08:40)
[2022-04-16] MEDS: Fluticasone Propionate Nasal Spray 9.9 ML BOTTLE NASBOTH SCH (08:41)
[2022-04-16] MEDS: UMECLIDIN PO SCH (08:41)
[2022-04-16] MEDS: FLUTICASONE PO SCH (08:41)
[2022-04-16] MEDS: VILANTER PO SCH (08:41)
[2022-04-16] MEDS: ENZALUTAMIDE 40 MG PO SCH (08:42)
[2022-04-16] MEDS: RIVASTIGMINE 13.3 MG TOP SCH (08:43)
[2022-04-16] MEDS: Memantine 10 MG Tab PO SCH (08:44)
[2022-04-16] MEDS: Loperamide 2 MG Cap PO SCH (08:46)
== END 2022-04-16 11:35 | disposition home or self-care (01) | DRG 948 ==
LOC: VM.MS 10:37
PROVIDERS: ADMIT Family Medicine; ATTEND Family Medicine
DX: R53.1 Weakness (principal); G30.1 Alzheimer's disease with late onset; F02.80 Dementia in other diseases classified elsewhere, unspecified severity, without behavioral disturbance, psychotic disturbance, mood disturbance, and anxiety; I35.1 Nonrheumatic aortic (valve) insufficiency; I48.0 Paroxysmal atrial fibrillation; I10 Essential (primary) hypertension; C61 Malignant neoplasm of prostate; E78.5 Hyperlipidemia, unspecified; K21.9 Gastro-esophageal reflux disease without esophagitis; E78.00 Pure hypercholesterolemia, unspecified; K52.9 Noninfective gastroenteritis and colitis, unspecified; K27.9 Peptic ulcer, site unspecified, unspecified as acute or chronic, without hemorrhage or perforation; Z85.46 Personal history of malignant neoplasm of prostate; G30.9 Alzheimer's disease, unspecified; Z85.828 Personal history of other malignant neoplasm of skin; Z95.0 Presence of cardiac pacemaker; Z79.01 Long term (current) use of anticoagulants; Z79.899 Other long term (current) drug therapy; Z88.8 Allergy status to other drugs, medicaments and biological substances; Z87.891 Personal history of nicotine dependence; Z20.822 Contact with and (suspected) exposure to COVID-19
CPT/HCPCS: 36415; 85610; 97110-GP; 97112-GP; 97116-GP; 97530-GP; A9270-GY; J7613-GY

== ENCOUNTER 2022-08-05 20:21 | Inpatient (IN) | payer MEDICARE, BC ==
[2022-08-05 21:24] LABS: CHLORIDE,CL 104 mmol/L (98-107); SODIUM,NA 136 mmol/L (136-145)
[2022-08-05 21:25] LABS: ANION GAP 14.4 mmol/L (5-15); ESTIMATED GFR 60 mL/min (>=60)
[2022-08-05] MEDS ORDERED: Sodium Chloride 0.9% 1,000 ML IV SCH (23:00)
[2022-08-05] MEDS ORDERED: Acetaminophen 325 MG Tab PO PRN (23:21)
[2022-08-05] MEDS ORDERED: DENOSUMAB 120 MG/1.7 ML SUBCUT SCH (23:30)
[2022-08-05] MEDS ORDERED: Warfarin 5 MG Tab PO SCH (23:30)
[2022-08-06] MEDS ORDERED: Ondansetron 4 MG Tab.DIS PO PRN (01:27)
[2022-08-06] MEDS ORDERED: Albuterol 0.083% 2.5 MG/3 ML Neb Soln NEB PRN (01:29)
[2022-08-06 07:16] LABS: ANION GAP 14.6 mmol/L (5-15)
[2022-08-06] MEDS ORDERED: VENLAFAXINE HCL 37.5 MG PO SCH (09:00)
[2022-08-06] MEDS ORDERED: RIVASTIGMINE TD SCH (09:00)
[2022-08-06] MEDS ORDERED: UMECLIDIN PO SCH (10:00)
[2022-08-06] MEDS ORDERED: VILANTEROL PO SCH (10:00)
[2022-08-06] MEDS ORDERED: FLUTICASONE PO SCH (10:00)
[2022-08-06] MEDS: Furosemide 20 MG/2 ML VIAL IV SCH ×2 (10:10→13:45)
[2022-08-06] MEDS: Finasteride 5 MG Tab PO SCH (10:11)
[2022-08-06] MEDS: Phytonadione 100 MCG Tab PO SCH (10:11)
[2022-08-06] MEDS: Pantoprazole 40 MG Tab.CR PO SCH (10:11)
[2022-08-06] MEDS: Venlafaxine 75 MG Cap.ER PO SCH (10:11)
[2022-08-06] MEDS: Memantine 10 MG Tab PO SCH ×2 (10:11→21:25)
[2022-08-06] MEDS: Tamsulosin 0.4 MG Cap.ER PO SCH (10:11)
[2022-08-06] MEDS: Fluticasone Propionate Nasal Spray 9.9 ML BOTTLE NASBOTH SCH (10:12)
[2022-08-06] MEDS: Formoterol/Mometasone 100-5 MCG 8.8 GM Inhaler IH SCH ×2 (10:13→21:26)
[2022-08-06] MEDS: Tiotropium Bromide 4 GM Inhalation Spray (2.5mcg/1 dose; 10 doses) INH SCH (10:13)
[2022-08-06] MEDS ORDERED: RIVASTIGMINE TOP SCH (10:13)
[2022-08-06] MEDS: Loperamide 2 MG Cap PO SCH (10:16)
[2022-08-06 13:35] LABS: CORONAVIRUS COVID-19 NAA NEGATIVE (NEGATIVE)
[2022-08-06] MEDS ORDERED: atorvaSTATin 10 MG Tab PO SCH (21:00)
[2022-08-06] MEDS ORDERED: Mirtazapine 15 MG Tab PO SCH (21:00)
[2022-08-06] MEDS: Albuterol/Ipratropium 3.0-0.5 MG/3 ML Neb Soln INH SCH (21:25)
[2022-08-07 07:34] LABS: ANION GAP 15.6 mmol/L (5-15)
[2022-08-07] MEDS: Furosemide 20 MG/2 ML VIAL IV SCH ×2 (12:03→15:10)
[2022-08-07] MEDS: Fluticasone Propionate Nasal Spray 9.9 ML BOTTLE NASBOTH SCH (12:04)
[2022-08-07] MEDS: Formoterol/Mometasone 100-5 MCG 8.8 GM Inhaler IH SCH (12:28)
[2022-08-07] MEDS: Venlafaxine 75 MG Cap.ER PO SCH (12:29)
[2022-08-07] MEDS: Tamsulosin 0.4 MG Cap.ER PO SCH (12:29)
[2022-08-07] MEDS: Loperamide 2 MG Cap PO SCH (12:29)
[2022-08-07] MEDS: Memantine 10 MG Tab PO SCH (12:30)
[2022-08-07] MEDS: Pantoprazole 40 MG Tab.CR PO SCH (12:30)
[2022-08-07] MEDS: Finasteride 5 MG Tab PO SCH (12:30)
[2022-08-07] MEDS: Phytonadione 100 MCG Tab PO SCH (12:31)
[2022-08-07] MEDS: Tiotropium Bromide 4 GM Inhalation Spray (2.5mcg/1 dose; 10 doses) INH SCH (12:31)
[2022-08-07] MEDS: Acetaminophen 650 MG Supp RECTAL PRN (18:13)
[2022-08-07] MEDS: Albuterol/Ipratropium 3.0-0.5 MG/3 ML Neb Soln INH SCH (20:14)
[2022-08-08] MEDS: Morphine 2 MG/ML SYRINGE IVPUSH PRN ×2 (02:06→15:50)
[2022-08-08] MEDS: Acetaminophen 650 MG Supp RECTAL PRN ×2 (06:23→12:40)
[2022-08-08 08:33] LABS: ANION GAP 17.7 mmol/L (5-15)
[2022-08-08] MEDS: Fluticasone Propionate Nasal Spray 9.9 ML BOTTLE NASBOTH SCH (09:11)
[2022-08-08] MEDS: Furosemide 20 MG/2 ML VIAL IV SCH ×2 (09:11→14:21)
[2022-08-08] MEDS: Albuterol/Ipratropium 3.0-0.5 MG/3 ML Neb Soln INH SCH (21:51)
[2022-08-09] MEDS: Morphine 2 MG/ML SYRINGE IVPUSH PRN ×3 (01:04→16:53)
[2022-08-09 08:59] VITALS: BP 136/60; PULSE 88
[2022-08-09] MEDS ORDERED: Flumazenil 0.1 MG/ML 5 ML MDV IVPUSH PRN (08:59)
[2022-08-09] MEDS: Furosemide 20 MG/2 ML VIAL IV SCH ×2 (09:00→14:15)
[2022-08-09] MEDS: Fluticasone Propionate Nasal Spray 9.9 ML BOTTLE NASBOTH SCH (09:02)
[2022-08-09] MEDS: LORazepam 2 MG/ML SDV IVPUSH PRN ×2 (12:16→17:59)
[2022-08-09] MEDS: Albuterol/Ipratropium 3.0-0.5 MG/3 ML Neb Soln INH SCH (22:00)
[2022-08-10] MEDS: Morphine 2 MG/ML SYRINGE IVPUSH PRN ×2 (00:18→04:42)
[2022-08-10] MEDS: LORazepam 2 MG/ML SDV IVPUSH PRN ×2 (02:16→06:40)
[2022-08-10] MEDS: Atropine 1% Ophth Soln 5 ML BOTTLE SL PRN ×3 (06:35→11:54)
[2022-08-10] MEDS ORDERED: Morphine 2 MG/ML SYRINGE SUBCUT PRN (06:55)
[2022-08-10] MEDS ORDERED: LORazepam 2 MG/ML SDV SUBCUT PRN (06:56)
== END 2022-08-10 16:59 | disposition expired | DRG 813 ==
LOC: VM.ED 20:21 → VM.MS 08-06 00:09 → EEVIPCON 08-06 00:09 → OBSVTOIN 08-06 07:47 → VM.MS 08-10 09:51
PROVIDERS: ADMIT Family Medicine; ATTEND Family Medicine
DX: R53.1 Weakness (principal); D69.6 Thrombocytopenia, unspecified; I50.31 Acute diastolic (congestive) heart failure; R40.20 Unspecified coma; I48.91 Unspecified atrial fibrillation; K62.5 Hemorrhage of anus and rectum; I10 Essential (primary) hypertension; I11.0 Hypertensive heart disease with heart failure; Z51.5 Encounter for palliative care; G30.9 Alzheimer's disease, unspecified; Z66 Do not resuscitate; Z20.822 Contact with and (suspected) exposure to COVID-19; D64.9 Anemia, unspecified; C61 Malignant neoplasm of prostate; G30.1 Alzheimer's disease with late onset; F02.80 Dementia in other diseases classified elsewhere, unspecified severity, without behavioral disturbance, psychotic disturbance, mood disturbance, and anxiety; I35.1 Nonrheumatic aortic (valve) insufficiency; I48.0 Paroxysmal atrial fibrillation; K21.9 Gastro-esophageal reflux disease without esophagitis; H91.90 Unspecified hearing loss, unspecified ear; E78.00 Pure hypercholesterolemia, unspecified; E86.0 Dehydration; I49.5 Sick sinus syndrome; K27.9 Peptic ulcer, site unspecified, unspecified as acute or chronic, without hemorrhage or perforation; G24.3 Spasmodic torticollis; Z85.828 Personal history of other malignant neoplasm of skin; Z79.899 Other long term (current) drug therapy; Z79.01 Long term (current) use of anticoagulants; Z88.8 Allergy status to other drugs, medicaments and biological substances; Z91.09 Other allergy status, other than to drugs and biological substances; Z95.0 Presence of cardiac pacemaker
CPT/HCPCS: 0240U; 36415; 71045; 80048; 80053; 80076; 81001; 83880; 84443; 85025; 85610; 93010; 94640; 99220; 99284; 99285; A9270-GY; J1940; J2060; J2270; J7030; J7613-GY; J7620-GY